=== PATIENT | male | born 1950 | race Caucasian/White ===

== ENCOUNTER 2019-05-24 12:17 | Emergency (ER) | payer MEDICARE, SELFPAY ==
--- NOTE | ~2019-05-24 | CT_ITS ---
EXAMINATION: CT cervical spine wo con DATE: 05/24/2019 13:10 INDICATION: Neck pain. No acute injury. TECHNIQUE: Computed tomography (CT) of the cervical spine was performed without intravenous contrast. The dose-length product was 430 mGy-cm. Automated exposure control and iterative reconstruction tech nique were employed. COMPARISON: None FINDINGS: There is degenerative anterolisthesis at C3-4 secondary to facet hypertrophy. There is disc narrowing at C5-6, C6-7 and C7-T1. There is endplate degenerative change at C6-7. Odontoid process w ithin normal limits. There is mild-moderate multilevel uncinate and facet hypertrophy. Lung apices ar e unremarkable. There is atherosclerosis of the carotid arteries. No acute fracture or traumatic segundo lignment. IMPRESSION: 1. No acute abnormality of the cervical spine. 2: Moderate-severe cervical spondylosis. Reviewed, dictated and finalized at location A. GATHERER
--- NOTE | ~2019-05-24 | XR_ITS ---
XR shoulder LT min 2V 05/24/2019 13:10 Indication: Left-sided shoulder and neck pain no acute injury. Procedure: 5 views of the left shoulder Comparison: No prior studies for comparison. Findings: There are degenerative changes of the left acromioclavicular and glenohumeral joints. No fr acture or traumatic malalignment. Surrounding osseous structures and soft tissues are unremarkable. Impression: 1: Mild polyarticular osteoarthritis. Reviewed, dictated and finalized at location A. CTOR CHEMISTRY Impression: 1: Mild polyarticular osteoarthritis.
[2019-05-24 12:34] VITALS: BP 201/94; PULSE 77; RESP 16; TEMP 36.8; O2SAT 98
--- NOTE | 2019-05-24 12:54 | ED.UPPEXIN ---
HPI - Extremity Injury (Upper) General Chief Complaint: Extremity Injury, Upper Stated Complaint: left arm/shoulder pain Time Seen by Provider: 05/24/19 12:42 Source: patient Mode of arrival: ambulatory Limitations: no limitations History of Present Illness HPI narrative: Calos is a very pleasant 68-year-old male patient. He presents ambulatory to the emergency room. He states that he has had pain to the back of the neck radiating to the left side of the neck left shoulder down to the elbow. This is been going on for the past 4 days. Any lateral motion of the neck reproduces the pain. [id number] movement of the neck on both the left and right side cause the pain. He has occasional numbness to the fingers on the left hand. There is no motor weakness. There is no history of injury. He describes the pain is sharp. Any motion increases it to 10. Head rest when he keeps his neck still the pain is 4 or 5. Calos has history of heart disease. He has had 5 vessel CABG. He has had a total of 16 stents in the heart. He has history of hypertension. He takes aspirin 325 and Plavix. MD complaint: injury to: left ( Pain to the left side of the neck radiating to the left shoulder and left elbow. Please see HPI narrative.) and shoulder Onset (ago): day(s) ( Four days) Other injuries: none Handedness: right Severity: severe ( please see HPI narrative) Relieving factors: other ( when he keeps his neck still, Calos does not have much pain. Lateral motions of the neck is painful.) Exacerbating factors: other ( neck movements make the pain worse) Context: other ( no injury) Associated symptoms: numbness Treatments prior to arrival: other ( none) Related Data Home Medications Medication Instructions Recorded Confirmed clopidogrel 75 mg PO DAILY 05/24/19 05/24/19 dicyclomine 10 mg PO BID PRN 05/24/19 05/24/19 ezetimibe 10 mg PO DAILY 05/24/19 05/24/19 gabapentin 300 mg PO DAILY 05/24/19 05/24/19 isosorbide mononitrate 30 mg PO DAILY 05/24/19 05/24/19 losartan 25 mg PO DAILY 05/24/19 05/24/19 pramipexole 0.25 mg PO DAILY 05/24/19 05/24/19 rosuvastatin 40 mg PO DAILY 05/24/19 05/24/19 Allergies Allergy/AdvReac Type Severity Reaction Status Date / Time No Known Allergies Allergy Unverified 05/26/15 07:24 Review of Systems Review of Systems: All systems reviewed & are unremarkable except as noted in HPI and below Constitutional: Constitutional: Reports as per HPI, Reports no additional constitutional complaints, Denies chills and Denies fever(s) Eyes: Eyes: Reports as per HPI, Reports no additional eye complaints and Denies change in vision ENT: Reports system reviewed and no additional complaints, except as documented, Denies dysphagia, Denies vertigo, Denies dizziness, Denies epistaxis, Denies nasal congestion and Denies sore throat Cardiovascular: Cardiovascular: Reports as per HPI, Reports no additional cardiovascular complaints, Denies chest pain, Denies rapid heart rate, Denies radiating jaw, neck or arm pain and Denies slow heart rate Respiratory: Respiratory: Reports as per HPI, Reports no additional respiratory complaints, Denies chest congestion, Denies cough, Denies dyspnea and Denies wheezing Gastrointestinal: Gastrointestinal: Reports as per HPI, Reports no additional gastrointestinal complaints, Denies abdominal pain, Denies nausea and Denies vomiting Genitourinary: Genitourinary: Reports no additional male genitourinary complaints, Denies hematuria and Denies dysuria Musculoskeletal: Musculoskeletal: Reports no additional musculoskeletal complaints Comments: neck pain as described in HPI narrative Integumentary/Breasts: Skin/Breast: Reports system reviewed and no additional complaints, except as docu, Reports as per HPI, Denies erythema and Denies rash Neurologic: Reports system reviewed and no additional complaints, except as documented, Denies vertigo, Denies dizziness, Denies syncope, Denies headache(s), Denies focal weak
[2019-05-24] MEDS: KETOROLAC (*BKC) 60 MG/2 ML VIAL 30 MG IM (14:01)
[2019-05-24 14:09] VITALS: BP 197/99
== END 2019-05-24 14:12 | disposition home or self-care (01) ==
PROVIDERS: Emergency Provider Surgery; PCP Internal Medicine
DX: M47.892 Other spondylosis, cervical region (principal); M13.812 Other specified arthritis, left shoulder; I25.10 Atherosclerotic heart disease of native coronary artery without angina pectoris; E78.00 Pure hypercholesterolemia, unspecified; I10 Essential (primary) hypertension; Z87.891 Personal history of nicotine dependence
CPT/HCPCS: 72125; 73030; 96372; 99283; 99284; J1885

== ENCOUNTER 2019-05-27 10:11 | Emergency (ER) | payer MEDICARE, SELFPAY ==
--- NOTE | ~2019-05-27 | XR_ITS ---
XR chest 2V DATE: 05/27/2019 11:13 INDICATION: Cough, shortness of breath, left-sided chest pain. Left shoulder pain. TECHNIQUE: PA and lateral views COMPARISON: 09/17/2010 portable AP chest FINDINGS: Status post sternotomy and coronary artery bypass graft surgery. Coronary artery calcificat ion and/or stent is suggested. Normal heart size. No hilar or mediastinal enlargement. No pulmonary infiltrate or consolidation, pleural effusion or pulmonary vascular congestion or pneumo thorax. Degenerative spurring of the thoracic and lumbar spine. Mild likely chronic anterior wedging of T12 a nd L1. IMPRESSION: Postoperative changes No active cardiopulmonary disease Reviewed, dictated and finalized at location A.
--- NOTE | ~2019-05-27 | XR_ITS ---
XR chest 1V portable 06/11/2019 15:35 Indication: Lethargy, weakness and confusion Procedure: AP portable chest Comparison: 05/27/2019 Findings: Status post median sternotomy for CABG. Heart size normal. No focal air space disease, pulm onary edema, pleural effusion or suspected pneumothorax. Impression: 1: No acute cardiopulmonary disease. Reviewed, dictated and finalized at location A.
--- NOTE | ~2019-05-27 | CT_ITS ---
EXAMINATION: CT brain wo con INDICATION: Lethargy, weakness, confusion COMPARISON: None TECHNIQUE: Standard unenhanced head CT. The dose-length product (DLP) was 605.33 mGy-cm. The mA was a djusted according to patient size. Iterative reconstruction technique was employed. FINDINGS: There is no acute intraparenchymal hemorrhage. No evidence of mass lesion. No evidence of a cute infarction. There is mild periventricular and subcortical hypodensity probably related to small vessel ischemic disease. There is mild prominence of the sulci and ventricles related to cerebral atr ophy. Intracranial calcified cerebral atherosclerosis is noted. There are no extra-axial collections. There is no mass effect or midline shift. The orbits and soft tissues are unremarkable. The visuali zed sinuses and mastoid air cells are well aerated. IMPRESSION: 1. No acute intracranial abnormality. 2. Age related findings. Reviewed, dictated and finalized at location B.
[2019-05-27 10:25] VITALS: BP 216/100; PULSE 71; RESP 18; TEMP 36.5; O2SAT 98
[2019-05-27 10:31] VITALS: BP 182/83; PULSE 64; O2SAT 96
--- NOTE | 2019-05-27 10:51 | ED.NECK ---
HPI - Neck Pain/Injury General Chief Complaint: Neck Pain/Injury Stated Complaint: Pain all the way down L side/ Has heart Problems Time Seen by Provider: 05/27/19 10:52 Source: patient Mode of arrival: ambulatory Limitations: no limitations Related Data Home Medications Medication Instructions Recorded Confirmed clopidogrel 75 mg PO DAILY 05/24/19 05/27/19 dicyclomine 10 mg PO BID PRN 05/24/19 05/27/19 ezetimibe 10 mg PO DAILY 05/24/19 05/27/19 gabapentin 300 mg PO DAILY 05/24/19 05/27/19 isosorbide mononitrate 30 mg PO DAILY 05/24/19 05/27/19 losartan 25 mg PO DAILY 05/24/19 05/27/19 pramipexole 0.25 mg PO DAILY 05/24/19 05/27/19 rosuvastatin 40 mg PO DAILY 05/24/19 05/27/19 Allergies Allergy/AdvReac Type Severity Reaction Status Date / Time No Known Allergies Allergy Unverified 05/26/15 07:24 [facility] Past Medical History Medical History (Updated 05/27/19 @ 11:52 by Jayson Saab MD) CAD (coronary artery disease) Heart disease Hypercholesterolemia Hypertension Surgical History Surgical History (Updated 05/24/19 @ 13:02 by Arvin Carl MD) History of coronary artery stent placement S/P CABG x 5 Family History Family History (Updated 05/24/19 @ 13:03 by Arvin Carl MD) Mother , mother of old age at age 89 No problems noted. Father , father of old age at age 92 No problems noted. Social History Social History (Updated 05/24/19 @ 13:03 by Arvin Carl MD) Smoking status: Former smoker Additional smoking assessment comments: does not smoke cigarettes Substance use: never Course Vital Signs Vital signs: Vital Signs Temperature 36.5 C 05/27/19 10:25 Pulse Rate 71 05/27/19 10:25 Respiratory Rate 18 05/27/19 10:25 Blood Pressure 216/100 H 05/27/19 10:25 Pulse Oximetry 98 05/27/19 10:25 Temperature 36.5 C 05/27/19 10:25 Pulse Rate 64 05/27/19 10:31 Respiratory Rate 18 05/27/19 10:25 Blood Pressure 182/83 H 05/27/19 10:31 Pulse Oximetry 96 05/27/19 10:31 MDM - Neck Pain/Injury ECG Data EKG #1: Attestation: I personally reviewed and interpreted this ECG as follows: ECG completion date: 05/27/19 ECG completion time: 11:18 Prior ECG tracings: not available for review Interpretation: IVCD, Old inf [facility] EKG Interpretation: normal rate, sinus rhythm, non-specific ST changes, widened QRS, normal QT and NL axis Discharge Plan Discharge Clinical Impression: Cervical radiculopathy Patient Disposition: Home, Self-Care Condition: Stable Instructions: Cervical Radiculopathy (ED) Additional Instructions: Follow up with your doctor as scheduled. Prescriptions: New hydrocodone-acetaminophen [[place]] 5-325 mg tablet 1 tablet PO Q6H PRN (Reason: pain) Qty: 20 RF: 0 No Action isosorbide mononitrate 30 mg tablet extended release 24 hr 30 mg PO DAILY RF: 0 clopidogrel 75 mg tablet 75 mg PO DAILY RF: 0 losartan 25 mg tablet 25 mg PO DAILY RF: 0 pramipexole 0.25 mg tablet 0.25 mg PO DAILY RF: 0 gabapentin 300 mg capsule 300 mg PO DAILY RF: 0 dicyclomine 10 mg capsule 10 mg PO BID PRN (Reason: Nausea) RF: 0 ezetimibe 10 mg tablet 10 mg PO DAILY RF: 0 rosuvastatin 40 mg tablet 40 mg PO DAILY RF: 0 acetaminophen-codeine [Tylenol-Codeine #3] 300-30 mg tablet 1 tablet PO Q6H PRN (Reason: pain) Qty: 6 RF: 0 Follow-up/Referrals: Mario Valerio MD [Primary Care Provider] - Time of Disposition: 11:54
--- NOTE | 2019-05-27 10:58 | ECG_ITS ---
Measurements Intervals [place] Rate: 62 P: 66 CT: 206 QRS: 37 QRSD: 118 T: 99 QT: 408 QTc: 416 Interpretive Statements SINUS RHYTHM WITH FIRST DEGREE AV BLOCK INTRAVENTRICULAR CONDUCTION DELAY INFERIOR INFARCT, AGE INDETERMINATE BORDERLINE T WAVE ABNORMALITY- LATERAL LEADS ABNORMAL ECG Electronically Signed On 05-27-2019 11:22:15 CDT by Kaushik Lopez D.O.
[2019-05-27 11:00] VITALS: BP 152/51; PULSE 60; RESP 18; O2SAT 97
[2019-05-27] MEDS: ASPIRIN 81 MG CHEWABLE TABLET 324 MG PO (11:22)
[2019-05-27 11:23] LABS: Basophils Absolute Auto 0.03 K/mm3 (0.00-0.10); Basophils Percent Auto 0.5 % (0.0-1.0); Eosinophils Absolute Auto 0.28 K/mm3 (0.02-0.50); Eosinophils Percent Auto 4.8 % (1.0-6.0); Hematocrit 43.5 % (37.0-46.0); Hemoglobin 14.4 g/dL (12.4-15.3); Immature Granulocyte Absolute 0.02 K/mm3 (0.00-0.00); Immature Granulocyte Percent A 0.3 % (0.0-0.0); Lymphocytes Absolute Auto 1.36 K/mm3 (1.10-4.50); Lymphocytes Percent Auto 23.1 % (18.0-42.0); Mean Corpuscular HGB Conc 33.1 g/dL (32.0-36.0); Mean Corpuscular Hemoglobin 28.1 pg (27.0-31.0); Mean Corpuscular Volume 84.8 fL (78.0-102.0); Mean Platelet Volume 9.5 fl (8.7-11.0); Monocytes Absolute Auto 0.45 K/mm3 (0.10-0.90); Monocytes Percent Auto 7.7 % (2.0-11.0); Neutrophils Absolute Auto 3.7 K/mm3 (1.7-7.2); Neutrophils Percent Auto 63.6 % (50.0-70.0); Platelet Count Result 207 K/mm3 (150-420); Red Blood Count 5.13 M/mm3 (4.70-6.10); Red Cell Distribution Width 13.6 % (11.6-14.4); White Blood Count 5.9 K/mm3 (4.8-10.8)
[2019-05-27 11:44] LABS: Alanine Aminotransferase 24 U/L (16-63); Albumin Level 3.7 g/dL (3.4-5.0); Alkaline Phosphatase 51 U/L (46-116); Anion Gap 12.1 mmol/L (7-16); Aspartate Amino Transferase 17 U/L (15-37); Bilirubin,Total 0.4 mg/dL (0.00-1.00); Blood Urea Nitrogen 11 mg/dL (7-18); Carbon Dioxide 26 mmol/L (21-32); Chloride 106 mmol/L (98-108); Estimated CRCL calculation 72 ml/min; Estimated Glomerular Filt Rate > 60; Glucose 117 mg/dL (70-99); Osmolality Calculated 290 mOsm/kg (285-295); Potassium 4.1 mmol/L (3.5-5.1); Sodium 140 mmol/L (136-145); Total Protein 6.9 g/dL (6.4-8.2)
[2019-05-27 11:45] LABS: Troponin I < 0.02 ng/mL (0.00-0.056)
[2019-05-27 12:01] VITALS: BP 174/88; PULSE 56; RESP 18; O2SAT 97
--- NOTE | 2019-06-11 14:39 | ECG_ITS ---
Measurements Intervals [place] Rate: 76 P: 36 [place]: 198 QRS: 5 QRSD: 118 T: -19 QT: 377 QTc: 425 Interpretive Statements SINUS RHYTHM BORDERLINE AV CONDUCTION DELAY INTRAVENTRICULAR CONDUCTION DELAY VOLTAGE CRITERIA FOR LVH INFERIOR INFARCT, AGE INDETERMINATE ABNORMAL ECG Electronically Signed On 06-11-2019 15:28:37 CDT by Kaushik Lopez D.O.
--- NOTE | 2019-06-11 14:51 | ED.WEAKNESS ---
HPI - Weakness General Source: patient Mode of arrival: ambulatory Limitations: no limitations Related Data Home Medications Medication Instructions Recorded Confirmed clopidogrel 75 mg PO DAILY 05/24/19 05/28/19 dicyclomine 10 mg PO BID PRN 05/24/19 05/28/19 ezetimibe 10 mg PO DAILY 05/24/19 05/28/19 gabapentin 300 mg PO DAILY 05/24/19 05/28/19 isosorbide mononitrate 30 mg PO DAILY 05/24/19 05/28/19 losartan 25 mg PO DAILY 05/24/19 05/28/19 pramipexole 0.25 mg PO DAILY 05/24/19 05/28/19 rosuvastatin 40 mg PO DAILY 05/24/19 05/28/19 aspirin 325 mg tablet 325 mg PO DAILY 05/28/19 06/11/19 Allergies Allergy/AdvReac Type Severity Reaction Status Date / Time No Known Allergies Allergy Verified 05/28/19 09:42 [facility] Social History Social History Smoking status: Former smoker Additional smoking assessment comments: does not smoke cigarettes Substance use: never Course Vital Signs Vital signs: Vital Signs Temperature 36.5 C 05/27/19 10:25 Pulse Rate 71 05/27/19 10:25 Respiratory Rate 18 05/27/19 10:25 Blood Pressure 216/100 H 05/27/19 10:25 Pulse Oximetry 98 05/27/19 10:25 Temperature 36.5 C 05/27/19 10:25 Pulse Rate 56 L 05/27/19 12:01 Respiratory Rate 18 05/27/19 12:01 Blood Pressure 174/88 H 05/27/19 12:01 Pulse Oximetry 97 05/27/19 12:01 MDM - Weakness Lab Data Result diagrams: 05/27/19 11:13 05/27/19 11:13 Labs: Lab Results 05/27/19 05/27/19 05/27/19 Range/Units 11:13 11:13 11:13 WBC 5.9 (4.8-10.8) K/mm3 RBC 5.13 (4.70-6.10) M/mm3 Hgb 14.4 (12.4-15.3) g/dL Hct 43.5 (37.0-46.0) % MCV 84.8 (78.0-102.0) fL MCH 28.1 (27.0-31.0) pg MCHC 33.1 (32.0-36.0) g/dL RDW 13.6 (11.6-14.4) % Plt Count 207 (150-420) K/mm3 MPV 9.5 (8.7-11.0) fl Immature Gran % (Auto) 0.3 H (0.0-0.0) % Neut % (Auto) 63.6 (50.0-70.0) % Lymph % (Auto) 23.1 (18.0-42.0) % [place] % (Auto) 7.7 (2.0-11.0) % Eos % (Auto) 4.8 (1.0-6.0) % Baso % (Auto) 0.5 (0.0-1.0) % Lymph # (Auto) 1.36 (1.10-4.50) K/mm3 [place] # (Auto) 0.45 (0.10-0.90) K/mm3 Eos # (Auto) 0.28 (0.02-0.50) K/mm3 Baso # (Auto) 0.03 (0.00-0.10) K/mm3 Abs Immat Gran (auto) 0.02 H (0.00-0.00) K/mm3 Absolute Neuts (auto) 3.7 (1.7-7.2) K/mm3 Absolute Nucleated RBC 0.00 (0.00-0.00) K/mm3 Nucleated RBC % 0.0 (0-0.0) % Sodium 140 (136-145) mmol/L Potassium 4.1 (3.5-5.1) mmol/L Chloride 106 (98-108) mmol/L Carbon Dioxide 26 (21-32) mmol/L Anion Gap 12.1 (7-16) mmol/L BUN 11 (7-18) mg/dL Creatinine 0.93 (0.70-1.30) mg/dL Estim Creat Clear Calc 72 ml/min Estimated GFR > 60 (59 - ) Glucose 117 H (70-99) mg/dL Calculated Osmolality 290 (285-295) mOsm/kg Calcium 9.0 (8.5-10.1) mg/dL Total Bilirubin 0.4 (0.00-1.00) mg/dL AST 17 (15-37) U/L ALT 24 (16-63) U/L Alkaline Phosphatase 51 (46-116) U/L Troponin I < 0.02 (0.00-0.056) ng/mL Total Protein 6.9 (6.4-8.2) g/dL Albumin 3.7 (3.4-5.0) g/dL Discharge Plan Discharge Clinical Impression: Cervical radiculopathy Patient Disposition: Home, Self-Care Condition: Stable Instructions: Cervical Radiculopathy (ED) Additional Instructions: Follow up with your doctor as scheduled. Prescriptions: New hydrocodone-acetaminophen [[place]] 5-325 mg tablet 1 tablet PO Q6H PRN (Reason: pain) Qty: 20 RF: 0 No Action isosorbide mononitrate 30 mg tablet extended release 24 hr 30 mg PO DAILY RF: 0 clopidogrel 75 mg tablet 75 mg PO DAILY RF: 0 losartan 25 mg tablet 25 mg PO DAILY RF: 0 pramipexole 0.25 mg tablet 0.25 mg PO DAILY RF: 0 gabapentin 300 mg capsule 300 mg PO DAILY RF: 0 dicyclomine 10 mg capsule 10 mg PO BID PRN (Reason: Nausea) RF: 0 ezetimibe 1
== END 2019-05-27 12:03 | disposition home or self-care (01) ==
PROVIDERS: Emergency Provider Emergency Medicine; PCP Family Medicine
DX: M54.12 Radiculopathy, cervical region (principal); I25.10 Atherosclerotic heart disease of native coronary artery without angina pectoris; E78.00 Pure hypercholesterolemia, unspecified; I10 Essential (primary) hypertension; Z87.891 Personal history of nicotine dependence
CPT/HCPCS: 36415; 70450; 71045; 71046; 80053; 84484; 85025; 93005; 99283; 99284; A9270

== ENCOUNTER 2019-06-11 14:28 | Emergency (ER) | payer MEDICARE, SELFPAY ==
--- NOTE | ~2019-06-11 | CT_ITS ---
EXAMINATION: CT brain wo con INDICATION: Lethargy, weakness, confusion COMPARISON: None TECHNIQUE: Standard unenhanced head CT. The dose-length product (DLP) was 605.33 mGy-cm. The mA was a djusted according to patient size. Iterative reconstruction technique was employed. FINDINGS: There is no acute intraparenchymal hemorrhage. No evidence of mass lesion. No evidence of a cute infarction. There is mild periventricular and subcortical hypodensity probably related to small vessel ischemic disease. There is mild prominence of the sulci and ventricles related to cerebral atr ophy. Intracranial calcified cerebral atherosclerosis is noted. There are no extra-axial collections. There is no mass effect or midline shift. The orbits and soft tissues are unremarkable. The visuali zed sinuses and mastoid air cells are well aerated. IMPRESSION: 1. No acute intracranial abnormality. 2. Age related findings. Reviewed, dictated and finalized at location B.
--- NOTE | ~2019-06-11 | XR_ITS ---
XR chest 1V portable 06/11/2019 15:35 Indication: Lethargy, weakness and confusion Procedure: AP portable chest Comparison: 05/27/2019 Findings: Status post median sternotomy for CABG. Heart size normal. No focal air space disease, pulm onary edema, pleural effusion or suspected pneumothorax. Impression: 1: No acute cardiopulmonary disease. Reviewed, dictated and finalized at location A. Impression: 1: No acute cardiopulmonary disease.
--- NOTE | 2019-06-11 14:44 | ECG_ITS ---
Measurements Intervals [place] Rate: 76 P: 36 [place]: 198 QRS: 5 QRSD: 118 T: -19 QT: 377 QTc: 425 Interpretive Statements SINUS RHYTHM BORDERLINE AV CONDUCTION DELAY INTRAVENTRICULAR CONDUCTION DELAY VOLTAGE CRITERIA FOR LVH INFERIOR INFARCT, AGE INDETERMINATE ABNORMAL ECG Electronically Signed On 06-11-2019 15:28:37 CDT by Kaushik MASON
[2019-06-11 14:55] VITALS: BP 179/99; PULSE 87; RESP 18; TEMP 37.1; O2SAT 98
--- NOTE | 2019-06-11 15:17 | ED.WEAKNESS ---
HPI - Weakness General Source: patient and family Mode of arrival: ambulatory Limitations: no limitations History of Present Illness HPI Narrative: 68-year-old man brought to the emergency department today for weakness that started overnight. He states that he got up at 3:00 a.m. and found himself too weak to go to the restroom. Patient states that he then fell asleep and slept well approximately noon. He states that he woke up and was unable to stand and felt weak all over. He states that he kind of slumped on the side of his bed but does not think he had any injury. He states he had the onset of nasal congestion and cough today. He states that he has had no shortness of breath, chest pain, numbness, tingling, headache, nausea, vomiting, diarrhea, dysuria or rash. He states that it feels like his left side is a bit stronger than his right. He states that he noticed that the end of his fingers appear to be white and that the white appearance went away after EMS david blood from his finger and has not returned. He states that approximately 5 days ago he his PCP started him on new medications (cyclobenzaprine and exenatide). MD Complaint: generalized weakness and difficulty walking Onset (ago): hour(s) (12) Duration: constant Location: generalized Migration: none Severity: moderate Relieving factors: none Exacerbating factors: none Context: new medication Related Data Home Medications Medication Instructions Recorded Confirmed clopidogrel 75 mg PO DAILY 05/24/19 06/11/19 dicyclomine 10 mg PO BID PRN 05/24/19 06/11/19 ezetimibe 10 mg PO DAILY 05/24/19 06/11/19 gabapentin 300 mg PO DAILY 05/24/19 06/11/19 isosorbide mononitrate 30 mg PO DAILY 05/24/19 06/11/19 losartan 25 mg PO DAILY 05/24/19 06/11/19 pramipexole 0.25 mg PO DAILY 05/24/19 06/11/19 rosuvastatin 40 mg PO DAILY 05/24/19 06/11/19 aspirin 325 mg tablet 325 mg PO DAILY 05/28/19 06/11/19 Allergies Allergy/AdvReac Type Severity Reaction Status Date / Time No Known Allergies Allergy Verified 05/28/19 09:42 Review of Systems Constitutional: Constitutional: Denies chills, Denies fever(s), Denies headache(s), Reports lethargy, Denies night sweats and Denies poor appetite Eyes: Eyes: Denies blind spots, Reports blurry vision, Denies diplopia and Denies photophobia ENT: Denies otalgia, Denies facial pain, Reports nasal congestion, Denies sinus pressure and Denies sore throat Cardiovascular: Cardiovascular: Denies chest pain, Denies chest pain at rest, Denies chest pain with activity, Denies diaphoresis, Denies rapid heart rate, Denies leg edema, Denies lightheadedness, Denies dyspnea, Denies dyspnea on exertion and Denies slow heart rate Respiratory: Respiratory: Denies chest congestion, Reports cough, Denies excessive phlegm production, Denies pain with cough, Denies dyspnea, Denies dyspnea on exertion and Denies wheezing Gastrointestinal: Gastrointestinal: Denies abdominal pain, Denies hematochezia, Denies dysphagia, Denies diarrhea, Denies nausea and Denies vomiting Genitourinary: Genitourinary: Denies urinary frequency, Denies urinary incontinence and Denies urinary urgency Musculoskeletal: Musculoskeletal: Reports back pain (chronic) and Reports neck pain (for weeks) Integumentary/Breasts: Skin/Breast: Denies pruritus, Denies lesions, Denies erythema and Denies rash Neurologic: Reports as per HPI, Denies Neuro-related abnormal movements, Denies Abnormal speech present, Denies vertigo, Denies dizziness, Denies syncope, Denies tingling, Denies paresthesias and Reports weakness Psychiatric: Psychiatric: Denies anxiety and Denies depression Endocrine: Endocrine: Denies excessive sweating, Denies heat intolerance and Denies polydipsia Hematologic/Lymphatic: Hematologic/Lymphatic: Denies easy bleeding and Denies easy bruising Allergic/Immunologic: Allergic/Immunologic: Denies urticaria, Denies lip swelling and Denies wheezing PMFSH Past Medical History Medical
[2019-06-11 15:31] LABS: Basophils Absolute Auto 0.01 K/mm3 (0.00-0.10); Basophils Percent Auto 0.2 % (0.0-1.0); Eosinophils Absolute Auto 0.24 K/mm3 (0.02-0.50); Eosinophils Percent Auto 5.3 % (1.0-6.0); Hematocrit 45.8 % (37.0-46.0); Immature Granulocyte Absolute 0.03 K/mm3 (0.00-0.00); Immature Granulocyte Percent A 0.7 % (0.0-0.0); Lymphocytes Absolute Auto 0.66 K/mm3 (1.10-4.50); Lymphocytes Percent Auto 14.6 % (18.0-42.0); Mean Corpuscular HGB Conc 32.8 g/dL (32.0-36.0); Mean Corpuscular Hemoglobin 28.1 pg (27.0-31.0); Mean Corpuscular Volume 85.9 fL (78.0-102.0); Mean Platelet Volume 9.2 fl (8.7-11.0); Monocytes Absolute Auto 0.63 K/mm3 (0.10-0.90); Monocytes Percent Auto 13.9 % (2.0-11.0); Neutrophils Percent Auto 65.3 % (50.0-70.0); Platelet Count Result 199 K/mm3 (150-420); Red Blood Count 5.33 M/mm3 (4.70-6.10); Red Cell Distribution Width 14.1 % (11.6-14.4); White Blood Count 4.5 K/mm3 (4.8-10.8)
[2019-06-11 15:32] LABS: INR 1.1; Partial Thromboplastin Time 26.7 SEC (22.3-31.6)
[2019-06-11 15:37] LABS: Amphetamine Screen Urine Negative (Negative); Barbiturate Screen Urine Negative (Negative); Benzodiazepines Screen Urine Negative (Negative); Cannabinoid Screen Urine Negative (Negative); Cocaine Screen Urine Negative (Negative); Methadone Screen Urine Negative (Negative); Opiate Screen Urine Negative (Negative); Phencyclidine Screen Urine Negative (Negative)
--- NOTE | 2019-06-11 15:41 | PC.NURSE ---
PT. RESTING ON STREACHER. APPEARS COMFORTABLE. MONITOR SHOWS NSR. NO CHANGES. ALERT AND ORIENTATED TIMES 3. AT BEDSIDE.
[2019-06-11 15:46] LABS: Add Urine Microscopic? YES; Appearance Urine Clear (Clear); Bilirubin Urine Negative (Negative); Blood Urine 2+ (Negative); Color Urine Yellow (Yellow); Glucose Urine UA Negative (Negative); Ketones Urine Negative (Negative); Leukocyte Esterase Ur Negative (Negative); Nitrate Urine Negative (Negative); Protein Urine Negative (Negative); Specific Grav Ur 1.025 (1.010-1.020); Urobilinogen Urine 0.2 mg/dL (0.2-1.0)
[2019-06-11 15:47] LABS: Bacteria Urine Trace /hpf; RBC Urine 21-50 /hpf (0-2); WBC Urine 0-3 /hpf (0-3)
[2019-06-11 15:54] LABS: Alanine Aminotransferase 25 U/L (16-63); Albumin Level 3.7 g/dL (3.4-5.0); Alkaline Phosphatase 59 U/L (46-116); Anion Gap 13.6 mmol/L (7-16); Aspartate Amino Transferase 20 U/L (15-37); Bilirubin,Total 0.5 mg/dL (0.00-1.00); Blood Urea Nitrogen 9 mg/dL (7-18); CRP 0.6 mg/dL (0.0-0.9); Calcium 9.1 mg/dL (8.5-10.1); Carbon Dioxide 26 mmol/L (21-32); Chloride 105 mmol/L (98-108); Estimated CRCL calculation 70 ml/min; Estimated Glomerular Filt Rate > 60; Glucose 111 mg/dL (70-99); Osmolality Calculated 291 mOsm/kg (285-295); Potassium 3.6 mmol/L (3.5-5.1); Salicylate 0.3 mg/dL (2.8-20.0); Sodium 141 mmol/L (136-145); Total Protein 7.3 g/dL (6.4-8.2)
[2019-06-11 15:55] LABS: Acetaminophen 0 ug/mL (10-30); Troponin I 0.09 ng/mL (0.00-0.056)
[2019-06-11 15:56] LABS: Ethanol < 3 mg/dL (0-6)
[2019-06-11 16:19] LABS: Creatine Kinase 48 U/L (39-308)
[2019-06-11 16:31] LABS: D Dimer 0.55 mg/L (0.19-0.50)
--- NOTE | 2019-06-11 16:38 | PC.NURSE ---
DR. LEE CALL [facility] EXCESS LINE . NO CHANGES
--- NOTE | 2019-06-11 16:44 | PC.NURSE ---
DR. LEE SPEAKS WITH DR. ULRICH @ [place]. NO CHANGES IN PT. RESTING ON STREACHER. APPEARS COMFORTABLE.
[2019-06-11 17:00] VITALS: PULSE 75
[2019-06-11] MEDS: LOSARTAN POTASSIUM 25 MG TABLET (17:19)
--- NOTE | 2019-06-11 17:25 | PC.NURSE ---
1700 Report received, pt. resting and new orders from ERP received. Awaiting call back from [facility] for bed assignment and report for pt. transfer. at bedside, VSS. Pt. and report all Drs. and cardiology located at [facility]. Informed on wait for callback for rm assignment.
[2019-06-11 17:27] VITALS: BP 176/96; PULSE 75; RESP 20; O2SAT 95
[2019-06-11 17:39] LABS: Influenza Control Valid (Valid)
[2019-06-11 17:49] VITALS: BP 183/84; PULSE 77; RESP 20; TEMP 37.1; O2SAT 96
--- NOTE | 2019-06-11 17:56 | PC.NURSE ---
Call placed to [facility] for pt. transfer, no crew available via [facility] for transfer. Pt. stable, VSS. Mon. continues to show NSR. Pt. has no c/o.
== END 2019-06-11 18:08 | disposition short-term general hospital (02) ==
PROVIDERS: Emergency Provider Emergency Medicine; PCP Family Medicine
DX: R53.1 Weakness (principal); R79.9 Abnormal finding of blood chemistry, unspecified; I25.10 Atherosclerotic heart disease of native coronary artery without angina pectoris; E78.00 Pure hypercholesterolemia, unspecified; E78.5 Hyperlipidemia, unspecified; I10 Essential (primary) hypertension; E11.9 Type 2 diabetes mellitus without complications; Z95.1 Presence of aortocoronary bypass graft; Z87.891 Personal history of nicotine dependence; Z79.899 Other long term (current) drug therapy
CPT/HCPCS: 36415; 70450; 71045; 80053; 80307; 81001; 82550; 83605; 84484; 85025; 85380; 85610; 85730; 86140; 87040; 87086; 87088; 87804; 93005; 99285; A9270

== ENCOUNTER 2019-06-20 07:53 | Outpatient (RCR) | payer MEDICARE, SELFPAY ==
--- NOTE | 2019-06-20 10:07 | OTOPEVAL ---
Thank you for referring Calos Schmitz to [facility]. Please review, sign, date and return this plan of care STEVE. I agree with and certify that the following plan of care is medically necessary. Referring Physician Date Admitting Provider: Attending Provider: Mario Valerio MD Referring Provider: *OT Outpatient Evaluation Start: 06/20/19 08:50 Freq: Status: Active Protocol: Document 06/20/19 09:00 MBS (Rec: 06/20/19 10:07 [facility] [place] [id number] Therapy Assessment Status Assessment Status Assessment Status Evaluation Outpatient Past Medical History Cardiovascular History Hx Angina Yes Hx Cardiac Catheterization Yes Hx Chest Pain Yes Hx Congestive Heart Failure Yes Hx Coronary Artery Bypass Graft Yes Hx Coronary Artery Disease Yes Hx Coronary Stent Yes Hx Hypercholesterolemia Yes Hx Hypertension Yes Musculoskeletal History Hx Arthritis Yes Endocrine History Hx Diabetes Yes Evaluation Information Problem Diagnosis weakness Onset 06/17/19 Subjective Information Pt. reports that he developed Query Text:As Reported By Patient/ left leg pain about 3 months Family ago. He reports he attempted to push through the discomfort . He states that he began to decline and was recently hospitalized. He reports that his legs had become weak and he fell at home. He reports that he could not get himself off the floor. He reports that he was disoriented and hallucinating. He was taken to the hospital by ambulance and was hospitalized for 4 days with weakness and confusion. He reports that he notes difficulty with basic daily activities and states that his goal is to improve his strength. He reports that walking around outside to feed the animals is difficult with the walker and getting back on his feet is his primary goal. Prior Level of Function Activity Level (Last 3 Months) Hand Dominance Right Activity of Daily Living Ability Independent Indo
--- NOTE | 2019-06-23 09:13 | PTOPEVAL ---
Thank you for referring Calos Schmitz to [facility]. Please review, sign, date and return this plan of care STEVE. I agree with and certify that the following plan of care is medically necessary. Referring Physician Date Admitting Provider: Attending Provider: Mario Valerio MD Referring Provider: *PT Outpatient Evaluation Start: 06/20/19 08:07 Freq: Status: Active Protocol: Document 06/20/19 08:08 JAIR (Rec: 06/20/19 08:47 [email or web address] [id number]) Therapy Assessment Status Assessment Status Assessment Status Evaluation Outpatient Past Medical History Cardiovascular History Hx Angina Yes Hx Cardiac Catheterization Yes Hx Chest Pain Yes Hx Congestive Heart Failure Yes Hx Coronary Artery Bypass Graft Yes Hx Coronary Artery Disease Yes Hx Coronary Stent Yes Hx Hypercholesterolemia Yes Hx Hypertension Yes Musculoskeletal History Hx Arthritis Yes Endocrine History Hx Diabetes Yes Evaluation Information Problem Diagnosis weakness Onset 06/17/19 Subjective Information Pt. reports that he developed Query Text:As Reported By Patient/ left leg pain about 3 months Family ago. He reports he attempted to push through the discomfort . He states that he began to decline and was recently hospitalized. He reports that his legs had become weak and he fell at home. He reports that he could not get himself off the floor. He was taken to the hospital by ambulance and was hospitalized for 4 days with weakness and confusion. He reports that he notes difficulty with basic daily activities and states that his goal is to improve his strength. 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
--- NOTE | 2019-07-17 15:00 | PTOPEVAL ---
Thank you for referring Calos Schmitz to [facility]. Please review, sign, date and return this plan of care STEVE. I agree with and certify that the following plan of care is medically necessary. Referring Physician Date Admitting Provider: Attending Provider: Mario Valerio MD Referring Provider: *PT Outpatient Evaluation Start: 06/20/19 08:07 Freq: Status: Active Protocol: Document 07/17/19 14:29 JAIR (Rec: 07/17/19 14:58 JAIR [id number]) Therapy Assessment Status Assessment Status Assessment Status Re-evaluation Outpatient Past Medical History Cardiovascular History Hx Angina Yes Hx Cardiac Catheterization Yes Hx Chest Pain Yes Hx Congestive Heart Failure Yes Hx Coronary Artery Bypass Graft Yes Hx Coronary Artery Disease Yes Hx Coronary Stent Yes Hx Hypercholesterolemia Yes Hx Hypertension Yes Musculoskeletal History Hx Arthritis Yes Endocrine History Hx Diabetes Yes Evaluation Information Problem Diagnosis weakness Subjective Information Pt. reports that he is doing Query Text:As Reported By Patient/ much better. He states that Family he has returned to short distance driving and is rarely using an AD. Pt. continues to express concern regarding endurance and states that standing for greater than 10 minutes is difficult. Pain Assessment Pain Scale Pain Scale Used Numeric (1 - 10) Self Report Pain Assessment Bilateral Leg(s) Reported Pain Level 3 Pain Score Pain Score 3: Self Report Lower Extremity Muscle Strength Testing General Lower Extremity Strength Gross Lower Extremity Strength bilateral hip flexion 4+/5, bilateral hip extension 4/5, bilateral knee extension 5/5, bilateral knee flexion 4+/5, right ankle dorsiflexion 4+/5, left ankle dorsiflexion 3+/5 Balance Assessment Tinetti Balance Assessment Sitting Balance Steady, safe Ability to Arise Able, uses arms to help Attempts to Arise Arises on 1st attempt Immediate Standing Balance Steady w/o support Standing Balance Narrow stance w/o support Nudged Response Steady Standing with Eyes Closed Steady Step Pattern Turning 360 Degrees Continuous steps Stability Turning 360 Degrees Steady Sitting Down Uses arms or
--- NOTE | 2019-08-14 08:08 | PTOPEVAL ---
Thank you for referring Calos Schmitz to [facility]. Please review, sign, date and return this plan of care STEVE. I agree with and certify that the following plan of care is medically necessary. Referring Physician Date Admitting Provider: Attending Provider: Mario Valerio MD Referring Provider: *PT Outpatient Evaluation Start: 06/20/19 08:07 Freq: Status: Active Protocol: Document 08/07/19 13:54 [id number] (Rec: 08/07/19 15:27 [email or web address] [id number]) Therapy Assessment Status Assessment Status Assessment Status Re-evaluation Outpatient Past Medical History Cardiovascular History Hx Angina Yes Hx Cardiac Catheterization Yes Hx Chest Pain Yes Hx Congestive Heart Failure Yes Hx Coronary Artery Bypass Graft Yes Hx Coronary Artery Disease Yes Hx Coronary Stent Yes Hx Hypercholesterolemia Yes Hx Hypertension Yes Musculoskeletal History Hx Arthritis Yes Endocrine History Hx Diabetes Yes Evaluation Information Problem Diagnosis weakness, neck pain Subjective Information Pt. reports that he was doing Query Text:As Reported By Patient/ well. He states he has Family increased neck pain today. He reports that he is walking better and states that he notes that the left foot is slapping less. He reports that he still notes l.e. weakness is still present but getting better. Pt. reports that cheyenne wants to continue to address strength with therapy because of fear of regression. He states that pain in is neck is very problematic currently. He reports that neck pain began after his fall prior to beginning therapy. He describes most pain with rotational movement. He reports that he had CT scan of his neck a couple months ago. He reports that pain is notable with turning his head and can wake him at night. he reports that he would like to continue treatment to reduce his neck pain. Pain Assessment Pain Scale Pain Scale Used
== END 2019-08-28 09:28 | disposition home or self-care (01) ==
LOC: CHSPT 07:53
PROVIDERS: PCP Family Medicine; Visit Provider Family Medicine
DX: E43 Unspecified severe protein-calorie malnutrition (principal); I25.10 Atherosclerotic heart disease of native coronary artery without angina pectoris; R53.1 Weakness; M25.519 Pain in unspecified shoulder; M54.12 Radiculopathy, cervical region; M54.5 Low back pain
CPT/HCPCS: 97014; 97110; 97112; 97116; 97140; 97161; 97165; 97530; 97535; G0283

== ENCOUNTER 2020-03-26 14:32 | Outpatient (NON) | payer MEDICARE, SELFPAY ==
[2020-03-26 14:46] LABS: Hematocrit 44.1 % (37.0-46.0); Hemoglobin 14.4 g/dL (12.4-15.3); Mean Corpuscular HGB Conc 32.7 g/dL (32.0-36.0); Mean Corpuscular Hemoglobin 28.4 pg (27.0-31.0); Mean Platelet Volume 9.9 fl (8.7-11.0); Platelet Count Result 275 K/mm3 (150-420); Red Blood Count 5.07 M/mm3 (4.70-6.10); Red Cell Distribution Width 13.1 % (11.6-14.4); White Blood Count 6.4 K/mm3 (4.8-10.8)
[2020-03-26 14:56] LABS: Creatinine Urine 102.59 mg/dL (40-278); MALB Creatinine Ratio 52.8 mg/g (0-30); Microalbumin Urine Random 54.2 mg/L
[2020-03-26 14:58] LABS: Hemoglobin A1C 5.7 % (<5.7)
[2020-03-26 15:18] LABS: Alanine Aminotransferase 19 U/L (16-63); Albumin Level 4.1 g/dL (3.4-5.0); Alkaline Phosphatase 54 U/L (46-116); Anion Gap 12 mmol/L (8-16); Aspartate Amino Transferase 13 U/L (15-37); Bilirubin,Total 0.4 mg/dL (0.00-1.00); Blood Urea Nitrogen 12 mg/dL (7-18); Calcium 9.8 mg/dL (8.5-10.1); Carbon Dioxide 25 mmol/L (21-32); Chloride 104 mmol/L (98-108); Cholesterol 135 mg/dL (0-200); Estimated Glomerular Filt Rate 57; Glucose 106 mg/dL (70-99); HDL Direct 48 mg/dL (40-60); LDL Cholesterol Calculated 60 mg/dL (<130); Osmolality Calculated 291 mOsm/kg (285-295); Potassium 4.4 mmol/L (3.5-5.1); Sodium 141 mmol/L (136-145); Total Protein 7.4 g/dL (6.4-8.2); Triglycerides 137 mg/dL (0-150)
== END 2020-03-26 14:33 ==
LOC: CHSLAB 14:33
PROVIDERS: Visit Provider Nurse Practitioner Family
DX: E78.5 Hyperlipidemia, unspecified (principal); E11.9 Type 2 diabetes mellitus without complications; I10 Essential (primary) hypertension
CPT/HCPCS: 36415; 80053; 80061; 82043; 83036; 85027

== ENCOUNTER 2020-03-30 14:19 | Outpatient (CLI) | payer MEDICARE, SELFPAY ==
[2020-03-30 14:36] LABS: Creatinine Urine 78.16 mg/dL (40-278); MALB Creatinine Ratio 46.5 mg/g (0-30); Microalbumin Urine Random 36.4 mg/L
== END 2020-03-30 14:20 | disposition home or self-care (01) ==
LOC: CHSLAB 14:22
PROVIDERS: PCP Family Medicine; Visit Provider Nurse Practitioner Family
DX: E11.9 Type 2 diabetes mellitus without complications (principal)
CPT/HCPCS: 82043

== ENCOUNTER 2020-04-11 15:42 | Emergency (ER) | payer MEDICARE, SELFPAY ==
--- NOTE | ~2020-04-11 | CT_ITS ---
EXAMINATION: CT abdomen pelvis wo con EXAM DATE: 04/11/2020 17:46 INDICATION: Left abd/flank pain, hematuria. TECHNIQUE: Spiral CT of the abdomen and pelvis was performed without contrast. Axial, coronal and sag ittal images were reviewed. The dose-length product (DLP) for this examination was 879.21 mGy-cm. T he exposure was tailored according to patient size (auto mA exposure control), and iterative reconstr uction (ASIR) was used as additional dose reduction technique. Comparison is made to prior examinatio n from 04/15/2015. FINDINGS: There is a left renal pelvic stone measuring 1.2 cm. There is mild to moderate left-sided h ydronephrosis and moderate to severe perinephric fat stranding. Additional bilateral nephrolithiasis, with 4 other left calyceal stones measuring up to 4 mm, and a right superior calyceal stone measurin g 7 mm. Mild prostatomegaly. Some prostate calcifications. The bladder is unremarkable. The liver, spleen, adrenal glands and pancreas are unremarkable. Gallbladder is unremarkable. No bi liary obstruction. There is no retroperitoneal or pelvic lymphadenopathy. There is mild to moderat e scattered arteriosclerotic disease. The appendix is normal. The stomach and small bowel are unremarkable. There is colonic fluid, corre late for diarrhea. No free intraperitoneal gas. The heart is normal in size. There are no perica rdial or pleural effusions. The lung bases are unremarkable. Moderate to severe lumbar spondylosis. There are no osteoblastic or osteolytic lesions identified. IMPRESSION: 1. Left UPJ 12 mm stone, mild to moderate hydronephrosis and moderate to severe perinephric fat stra nding. 2. Bilateral nephrolithiasis. 3. Mild prostatomegaly. 4. Colonic fluid. Reviewed, dictated and finalized at location A. 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 Left UPJ 12 mm stone, mild to moderate hydronephrosis and moderate to sever e perinephric fat stranding. 2. Bilateral nephrolithiasis. 3. Mild prostatomegaly. 4. Colonic fluid.
--- NOTE | 2020-04-11 16:04 | ED.BACK ---
HPI - Back Pain/Injury General Chief Complaint: Back Pain/Injury Stated Complaint: weakness,vomitting,back pain Time Seen by Provider: 04/11/20 16:05 Source: patient Mode of arrival: ambulatory Limitations: no limitations History of Present Illness HPI Narrative: 69-year-old man comes in today complaining of left mid back pain and flank pain present on waking this morning. Patient states that he also felt nauseous, had vomiting and episode of diarrhea. He has had several episodes of each since. He also feels feverish. Patient complains that he has got pain in his left flank and back. He denies hematuria, dysuria, hemoptysis, melena, hematochezia, syncope, chest pain and shortness of breath. He denies any recent sick exposures. He states it does not feel like the kidney stones he has had in the past. MD elicited complaint: back pain Pertinent past history: prior back pain and kidney stones Onset (ago): hour(s) (10) Timing: constant and progressively worsening Severity: moderate Similar Symptoms Previously: No Quality: sharp and aching Location: left flank and left lower back Radiation: none Exacerbating factors: none Relieving factors: none Context: history of kidney stones Associated symptoms: weakness, fatigue and fever Treatments prior to arrival: cold therapy and heat therapy Related Data Home Medications Medication Instructions Recorded Confirmed clopidogrel 75 mg PO DAILY 05/24/19 04/11/20 ezetimibe [Zetia] 10 mg PO DAILY 05/24/19 04/11/20 pramipexole 0.25 mg PO DAILY 05/24/19 04/11/20 fenofibrate nanocrystallized 48 mg 48 mg PO DAILY 03/26/20 04/11/20 tablet isosorbide mononitrate 60 mg 60 mg PO DAILY 03/26/20 04/11/20 tablet,extended release 24 hr nitroglycerin 0.4 mg sublingual 0.4 mg SUBLINGUAL Q5M PRN 03/26/20 04/11/20 tablet rosuvastatin 40 mg tablet 40 mg PO DAILY 03/26/20 04/11/20 Allergies Allergy/AdvReac Type Severity Reaction Status Date / Time No Known Allergies Allergy Verified 04/09/20 07:53 Review of Systems Constitutional: Constitutional: Reports fatigue, Reports fever(s) and Reports weakness Eyes: Eyes: Denies change in vision and Denies photophobia ENT: Denies dysphagia, Denies nasal congestion and Denies sore throat Cardiovascular: Cardiovascular: Denies chest pain and Denies radiating jaw, neck or arm pain Respiratory: Respiratory: Denies cough, Denies dyspnea and Denies wheezing Gastrointestinal: Gastrointestinal: Reports abdominal pain, Reports diarrhea, Reports nausea and Reports vomiting Genitourinary: Genitourinary: Denies hematuria, Denies dysuria and Denies urinary frequency Musculoskeletal: Musculoskeletal: Reports back pain, Denies arthralgias and Denies joint swelling Integumentary/Breasts: Skin/Breast: Denies pruritus, Denies erythema and Denies rash Neurologic: Denies vertigo, Denies dizziness and Denies syncope Allergic/Immunologic: Allergic/Immunologic: Denies lip swelling and Denies throat swelling PMFSH Past Medical History Medical History CAD (coronary artery disease) Chronic back pain Heart disease Heart disease Hypercholesterolemia Hyperlipidemia Hypertension Hypertension IBS (irritable bowel syndrome) Shoulder pain Type 2 diabetes mellitus Surgical History Surgical History History of coronary artery stent placement S/P CABG x 5 Family History Family History Mother , mother of old age at age 89 No problems noted. Father , father of old age at age 92 No problems noted. Social History Social History Smoking status: Former smoker Smoking end date: 03/19/04 Additional smoking assessment comments: does not smoke cigarettes Alcohol intake: never Substance use: never A
[2020-04-11 16:10] VITALS: BP 196/93; PULSE 65; RESP 20; TEMP 36.7; O2SAT 98
[2020-04-11] MEDS: SODIUM CHLORIDE 0.9% IV 500 ML 999 ML IV CONT (16:24)
[2020-04-11] MEDS: ONDANSETRON INJ 4 MG/2 ML VIAL IV PUSH (16:25)
[2020-04-11 16:39] LABS: Basophils Absolute Auto 0.04 K/mm3 (0.00-0.10); Basophils Percent Auto 0.5 % (0.0-1.0); Eosinophils Absolute Auto 0.08 K/mm3 (0.02-0.50); Hematocrit 42.5 % (37.0-46.0); Hemoglobin 13.9 g/dL (12.4-15.3); Immature Granulocyte Absolute 0.03 K/mm3 (0.00-0.00); Immature Granulocyte Percent A 0.4 % (0.0-0.0); Lymphocytes Absolute Auto 1.33 K/mm3 (1.10-4.50); Lymphocytes Percent Auto 17.1 % (18.0-42.0); Mean Corpuscular HGB Conc 32.7 g/dL (32.0-36.0); Mean Corpuscular Hemoglobin 28.5 pg (27.0-31.0); Mean Corpuscular Volume 87.3 fL (78.0-102.0); Monocytes Absolute Auto 0.74 K/mm3 (0.10-0.90); Monocytes Percent Auto 9.5 % (2.0-11.0); Neutrophils Absolute Auto 5.6 K/mm3 (1.7-7.2); Neutrophils Percent Auto 71.5 % (50.0-70.0); Platelet Count Result 240 K/mm3 (150-420); Red Blood Count 4.87 M/mm3 (4.70-6.10); Red Cell Distribution Width 13.1 % (11.6-14.4); White Blood Count 7.8 K/mm3 (4.8-10.8)
[2020-04-11 16:41] LABS: Add Urine Microscopic? YES; Appearance Urine Cloudy (Clear); Bilirubin Urine Negative (Negative); Blood Urine 3+ (Negative); Color Urine Yellow (Yellow); Glucose Urine UA Negative (Negative); Ketones Urine Negative (Negative); Leukocyte Esterase Ur Negative (Negative); Nitrate Urine Negative (Negative); Protein Urine Trace (Negative); Urobilinogen Urine 0.2 mg/dL (0.2-1.0); pH Urine 8.5 (5.0-8.0)
[2020-04-11 16:46] LABS: Amorphous Sediment Urine Moderate; Bacteria Urine 1+ /hpf; RBC Urine 21-50 /hpf (0-2); WBC Urine 0-3 /hpf (0-3)
[2020-04-11 16:55] LABS: Alanine Aminotransferase 16 U/L (16-63); Albumin Level 3.9 g/dL (3.4-5.0); Alkaline Phosphatase 50 U/L (46-116); Anion Gap 8 mmol/L (8-16); Aspartate Amino Transferase 14 U/L (15-37); Bilirubin,Total 0.7 mg/dL (0.00-1.00); Blood Urea Nitrogen 12 mg/dL (7-18); Calcium 9.3 mg/dL (8.5-10.1); Carbon Dioxide 28 mmol/L (21-32); Chloride 104 mmol/L (98-108); Estimated CRCL calculation 39 ml/min; Estimated Glomerular Filt Rate 45; Glucose 121 mg/dL (70-99); Lipase 80 U/L (73-393); Osmolality Calculated 290 mOsm/kg (285-295); Potassium 3.9 mmol/L (3.5-5.1); Sodium 140 mmol/L (136-145); Total Protein 7.6 g/dL (6.4-8.2)
[2020-04-11 16:56] LABS: Partial Thromboplastin Time 26.2 SEC (23.90-30.70); Prothrombin Time 11.4 Seconds (9.50-12.10)
[2020-04-11 17:00] LABS: Lactic Acid Reflex 1.3 mmol/L (0.4-2.0)
[2020-04-11 17:10] VITALS: BP 195/70; PULSE 60; RESP 20; O2SAT 98
[2020-04-11] MEDS: MORPHINE SULFATE (*CRX) 2 MG/ML INJ IV PUSH (17:35)
[2020-04-11 18:10] VITALS: PULSE 58; RESP 20; O2SAT 98
--- NOTE | 2020-04-11 18:24 | ECG_ITS ---
Measurements Intervals [place] Rate: 52 P: 24 ME: 192 QRS: -13 QRSD: 112 T: 46 QT: 423 QTc: 396 Interpretive Statements SINUS BRADYCARDIA DELAYED PRECORDIAL R/S TRANSITION VOLTAGE CRITERIA FOR LVH INFERIOR INFARCT, AGE INDETERMINATE BASELINE ARTIFACT- II, III, V2, V4 ABNORMAL ECG Electronically Signed On 04-12-2020 7:20:34 MASTER MACHINIST by Kaushik Lopez D.O.
[2020-04-11] MEDS: HYDROmorphone HCL INJ (*CRX) 2 MG/ML VIAL 0.5 MG IV PUSH (18:43)
[2020-04-11] MEDS: SODIUM CHLORIDE 0.9% IV 1,000 ML 150 ML IV CONT (18:43)
[2020-04-11 18:46] VITALS: BP 195/66; PULSE 57; RESP 20; O2SAT 97
[2020-04-11 18:57] VITALS: BP 170/71; PULSE 53; RESP 20; O2SAT 97
[2020-04-11 18:58] LABS: Troponin I 19.8 ng/L (0.00-60.4)
[2020-04-11 20:22] VITALS: BP 182/69; PULSE 57; RESP 20; O2SAT 97
== END 2020-04-11 20:25 | disposition short-term general hospital (02) ==
PROVIDERS: Emergency Provider Emergency Medicine; PCP Nurse Practitioner Family
DX: N13.2 Hydronephrosis with renal and ureteral calculous obstruction (principal); I25.10 Atherosclerotic heart disease of native coronary artery without angina pectoris; E78.5 Hyperlipidemia, unspecified; I10 Essential (primary) hypertension; E11.9 Type 2 diabetes mellitus without complications; Z87.891 Personal history of nicotine dependence
CPT/HCPCS: 36415; 74176; 80053; 81001; 83605; 83690; 84484; 85025; 85610; 85730; 87040; 87086; 93005; 96361; 96365; 96375; 99285; J0696; J1170; J2270; J2405; J7030; J7040

== ENCOUNTER 2020-04-11 20:55 | Observation (INO) | payer MEDICARE, SELFPAY ==
--- NOTE | ~2020-04-11 | XR_ITS ---
EXAMINATION: XR retrograde pyelo w/stent LT DATE: 04/12/2020 21:36 INDICATION: Left ureteral stent placement TECHNIQUE: A total of 47 images of the abdomen and pelvis were obtained during procedure performed by Dr. Mckee. Radiologist was not present for the imaging or procedure. The amount of fluoroscopy mana e used during this procedure was 0.7 minutes. COMPARISON: CT dated 04/11/2020 FINDINGS: The large stone at the left ureteropelvic junction is unchanged on the form drafter image. Retrograde contra st opacification outlining the stone with more proximal mild left hydronephrosis. Final images demons trate the proximal tip of a left internal ureteral stent extending into a middle calyx of the left ki dney. IMPRESSION: 1. Persistent large stone at the left ureteropelvic junction. 2. Left internal ureteral stent in expected position. See procedure note for further detail. Reviewed, dictated and finalized at location B. [employer] IMPRESSION: 1. Persistent large stone at the left ureteropelvic junction. 2. Left internal ureteral stent in expected position. See procedure note for fu rther detail.
--- NOTE | ~2020-04-11 | XR_ITS ---
EXAMINATION: XR abdomen/kub 1V EXAM DATE: 04/12/2020 08:15 INDICATION: Recheck kidney stone. TECHNIQUE: Frontal projection(s) of the abdomen for interpretation. Correlation is made to CT from . FINDINGS: There is a stone overlying the left UPJ measuring over 1 cm in size. There are smaller lalo ateral kidney stones. These findings have been indicated. Nonobstructive bowel gas pattern. There is mild lumbar dextroscoliosis. Moderate to large sized lumbar endplate osteophytes. IMPRESSION: 1. Left UPJ stone. Bilateral nephrolithiasis. Reviewed, dictated and finalized at location A. 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
--- NOTE | 2020-04-11 21:07 | ADMGEN ---
This patient, Calos Schmitz, was admitted to Medical Room 254-01. Patient/family oriented to hospital policies and general routines including ID bracelet, bed and alarms, visiting hours, pain management, procedures, bathroom and other care routines, personal items, smoking policy, room service/diet, and visiting hours. Information on how to activate the Rapid Response Team has been discussed. Patient/Family are encouraged to report perceived risks to care and to ask questions if they do not understand what they are told or what they should do.
[2020-04-11 22:27] VITALS: BMI 26.6
[2020-04-11 22:30] VITALS: BP 210/100; PULSE 63; RESP 20; TEMP 36.4; O2SAT 98
[2020-04-11] MEDS: SODIUM CHLORIDE 0.9% IV 1,000 ML 100 ML IV CONT (22:54)
[2020-04-11] MEDS: MORPHINE SULFATE (*CRX) 4 MG/ML INJ IV PUSH (22:54)
[2020-04-11] MEDS: DICYCLOMINE HCL 10 MG CAPSULE 20 MG PO (23:23)
[2020-04-12] VITALS (12 sets, daily range): BP systolic 108–210; BP diastolic 50–100; PULSE 41–60; RESP 11–20; TEMP 36.4–36.8; O2SAT 97–100
[2020-04-12] MEDS: HYDROmorphone HCL INJ (*CRX) 1 MG/ML SYR IV PUSH ×2 (01:10→16:30)
[2020-04-12 05:43] LABS: Anion Gap 4 mmol/L (8-16); Blood Urea Nitrogen 14 mg/dL (9-20); Calcium 8.7 mg/dL (8.4-10.2); Carbon Dioxide 28 mmol/L (22-30); Chloride 105 mmol/L (98-107); Estimated CRCL calculation 35 ml/min; Estimated Glomerular Filt Rate 40; Glucose 113 mg/dL (75-110); Potassium 3.8 mmol/L (3.4-5.0); Sodium 137 mmol/L (137-145)
--- NOTE | 2020-04-12 07:38 | WPDURCON ---
Assessment and Plan Assessment and plan (1) Left ureteral stone: Code(s): N20.1 - Calculus of ureter Status: Acute Assessment and Plan: We discussed going to the OR today for a left ureteral stent. He understands and will not be taking care of the stone at this time due to the large size of the stone and the fact he is on blood thinners. He understands risks of bleeding, infection, damage to the ureter, inability to place the stent. If all goes well he be discharged home afterwards with definitive stone management as an outpatient. (2) Hydronephrosis: Qualifiers: Hydronephrosis type: with renal calculous obstruction Qualified Code(s): N13.2 - Hydronephrosis with renal and ureteral calculous obstruction Code(s): N13.30 - Unspecified hydronephrosis Status: Acute (3) Bilateral kidney stones: Code(s): N20.0 - Calculus of kidney Status: Acute Urology Consult Note HPI Date Seen: 04/12/20 Requesting Physician: Celia Hamilton PA-C Primary Care Provider: Elisa Brar NP Consult Narrative Narrative: Calos Schmitz is a 69 year old male with a history of nephrolithiasis which passed on its own several years ago. Presented to an outside ER yesterday with acute onset left-sided flank pain. He had some nausea and vomiting x1 he denied any fevers, chills, dysuria, blood in the urine. He was diagnosed large proximal left ureteral stone with hydronephrosis. There is perinephric stranding but no signs of infection. He also has bilateral nonobstructive renal stones. He is currently feeling much better but is requiring pain medication. His nausea has improved. I will likely taken to the operating room this afternoon to place a stent to temporize things for future lithotripsy. Review of Systems Review of Systems: All systems reviewed & are unremarkable except as noted in HPI and below PMFSH Past Medical History Medical History CAD (coronary artery disease) Chronic back pain Heart disease Heart disease Hypercholesterolemia Hyperlipidemia Hypertension Hypertension IBS (irritable bowel syndrome) Shoulder pain Type 2 diabetes mellitus Surgical History Surgical History History of coronary artery stent placement S/P CABG x 5 Family History Family History (Updated 04/11/20 @ 21:10 by Lidia Andre RN) Mother , mother of old age at age 89 Hypertension Father , father of old age at age 92 Asthma Chronic obstructive pulmonary disease Hypertension Sibling Acute myocardial infarction Congestive heart failure Hypertension Alcohol abuse Social History Social History Smoking status: Former smoker Smoking end date: 03/19/04 Additional smoking assessment comments: does not smoke cigarettes Alcohol intake: never Substance use: never Additional living arrangements comments: Lives with Luci Has 2 children, A son and Daughter 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, 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, 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 Gender identity (if verbalized by the patient): Male Spiritual care concerns: No Meds Home Medications and Allergies Home Medications Medication Instructions Recorded Confirmed Type clopidogrel 75 mg PO DAILY 05/24/19 04/11/20 History ezetimibe [Zetia] 10 mg PO DAILY 05/24/19 04/11/20 History pramipexole 0.25 mg PO DAILY 05/24/19 04/11/20 History fenofibrate nanocrystallized 48 mg 48 mg PO DAILY 03/26/20 04/11/20 History tablet isosorbide mononitrate 60 mg 60 mg PO DAILY 03/26/20 04/11/20 History tablet,extended release 24 hr nitroglycerin 0.4 mg sublingual 0.4 mg SUBLINGUAL Q5M PRN 03/26/20 04/11/20 History tablet rosuvastatin 40 mg tablet 40 mg PO DAILY 03/26/20 04/11/20 History aspirin 81 mg chewable tablet 81 mg
[2020-04-12] MEDS: SODIUM CHLORIDE 0.9% IV 1,000 ML 100 ML IV CONT (08:49)
[2020-04-12] MEDS: hydroCHLOROthiazide 12.5 MG CAPSULE PO (08:51)
[2020-04-12] MEDS: DICYCLOMINE HCL 10 MG CAPSULE 20 MG PO (08:51)
[2020-04-12] MEDS: ISOSORBIDE MONONITRATE 60 MG TAB.ER.24H PO (08:51)
[2020-04-12] MEDS: EZETIMIBE 10 MG TABLET PO (08:51)
[2020-04-12] MEDS: LOSARTAN POTASSIUM 100 MG TABLET PO (08:51)
--- NOTE | 2020-04-12 09:54 | WPDANESEPPF ---
Anes - Initial Pre Proc Eval Procedure: Operation Date: 04/12/20 15:30 Proposed Procedures p CYSTOSCOPY,LEFT STENT PLACEMENT - Tim Mckee MD Date/Time: 04/12/20 09:54 Surgeon: Celia Hamilton PA-C Pre Op Diagnosis: UPJ stone, hydronephrosis Patient Data Age: 69 Gender: M Height: 1.73 m Weight: 79.4 kg Last Vital Signs Temp 36.7 C 04/12/20 07:29 Pulse 60 04/12/20 07:29 Resp 20 04/12/20 07:29 BP 164/67 H 04/12/20 07:29 Pulse Ox 98 04/12/20 07:29 Allergies Allergy/AdvReac Type Severity Reaction Status Date / Time No Known Allergies Allergy Verified 04/09/20 07:53 Home Medications Medication Instructions Recorded Confirmed Type clopidogrel 75 mg PO DAILY 05/24/19 04/11/20 History ezetimibe [Zetia] 10 mg PO DAILY 05/24/19 04/11/20 History pramipexole 0.25 mg PO DAILY 05/24/19 04/11/20 History fenofibrate nanocrystallized 48 mg 48 mg PO DAILY 03/26/20 04/11/20 History tablet isosorbide mononitrate 60 mg 60 mg PO DAILY 03/26/20 04/11/20 History tablet,extended release 24 hr nitroglycerin 0.4 mg sublingual 0.4 mg SUBLINGUAL Q5M PRN 03/26/20 04/11/20 History tablet rosuvastatin 40 mg tablet 40 mg PO DAILY 03/26/20 04/11/20 History aspirin 81 mg chewable tablet 81 mg PO DAILY #90 tablet 04/09/20 04/11/20 Rx dicyclomine 20 mg tablet 20 mg PO TID #90 tablet 04/09/20 04/11/20 Rx hydrochlorothiazide 12.5 mg tablet 12.5 mg PO DAILY #30 tablet 04/09/20 04/11/20 Rx losartan 100 mg tablet 100 mg PO DAILY #90 tablet 04/09/20 04/11/20 Rx metoprolol tartrate 25 mg tablet 25 mg PO BID #180 tablet 04/09/20 04/11/20 Rx Laboratory Tests 04/12/20 05:11 Sodium 137 mmol/L mmol/L (137-145) Potassium 3.8 mmol/L mmol/L (3.4-5.0) Chloride 105 mmol/L mmol/L (98-107) Carbon Dioxide 28 mmol/L mmol/L (22-30) Anion Gap 4 mmol/L L mmol/L (8-16) BUN 14 mg/dL mg/dL (9-20) Creatinine 1.70 mg/dL H mg/dL (0.7-1.3) Estim Creat Clear Calc 35 ml/min ml/min Estimated GFR 40 L (59 - ) Glucose 113 mg/dL H mg/dL (75-110) Calcium 8.7 mg/dL mg/dL (8.4-10.2) ECG: Date of Service: 04/11/20 Procedure(s): CA 12 lead EKG Accession Number(s): [id number] cc: ~ Measurements Intervals [place] Rate: 52 P: 24 MS: 192 QRS: -13 QRSD: 112 T: 46 QT: 423 QTc: 396 Interpretive Statements SINUS BRADYCARDIA DELAYED PRECORDIAL R/S TRANSITION VOLTAGE CRITERIA FOR LVH INFERIOR INFARCT, AGE INDETERMINATE BASELINE ARTIFACT- II, III, V2, V4 ABNORMAL ECG Electronically Signed On 04-12-2020 7:20:34 HEAD CHEF by Kaushik Lopez D.O. Dictated By: Kaushik Lopez DO 04/11/20 [id number] Patient hx anesthesia problems: none Family hx anesthesia problems: none [facility] Past Medical History Medical History (Updated 04/12/20 @ 13:38 by Celia Hamilton PA-C) CAD (coronary artery disease) Chronic back pain Heart disease Hyperlipidemia Hypertension IBS (irritable bowel syndrome) Shoulder pain Type 2 diabetes mellitus Surgical History Surgical History History of coronary artery stent placement S/P CABG x 5 Family History Family History Mother , mother of old age at age 89 Hypertension Father , father of old age at age 92 Asthma Chronic obstructive pulmonary disease Hypertension Sibling Acute myocardial infarction Congestive heart failure Hypertension Alcohol abuse Social History Social History (Updated 04/12/20 @ 13:27 by Celia Hamilton PA-C) Smoking packs per day: 2.5 Smoking cigarettes per day
--- NOTE | 2020-04-12 12:51 | PM.IMHP ---
H&P: HPI History of Present Illness Date/Time: 04/12/20 12:51 Chief Complaint: Left flank pain Narrative: Calos Schmitz is a 69 year old male with a history of coronary artery disease status post bypass surgery and multiple PCI, hypertension, dyslipidemia, who presented to the emergency department at [facility] for her left flank pain. Patient states when he woke up on 04/11/2020 he had a slight left-sided back pain, but continued to go on with his day. Then while he was walking around the house he felt a sudden sharp, stabbing pain to his left flank, like there was a knife in his back. He had associated symptoms of nausea, vomiting, diarrhea. He denies any radiation of his pain. Denies any dysuria, frequent urination, UA urgency with urination, urinary retention or urinary hesitancy. He does report having a kidney stone the past a few years ago that he was able to pass on his own. He denies any chest pain, shortness of breath, cough, fever, chills, abdominal pain, leg swelling, calf pain, lightheadedness, dizziness, syncopal episodes, or any other symptoms at this time. Initial vitals showed, he was afebrile, blood pressure 178/72, heart rate 53, respiratory rate 20, oxygen saturation 98% on room air. Initial labs showed normal CBC with differential, coag panel, slight elevation of creatinine 1.5, normal BUN at 12, otherwise normal CMP. Troponin was normal. Urine was cloudy with an elevated pH at 8.5, 3+ blood, 21-[address] abdomen pelvis showed Left UPJ 12 mm stone, mild to moderate hydronephrosis and moderate to severe perinephric fat stranding. Bilateral nephrolithiasis. Mild prostatomegaly. He was transferred to our facility for our urology services. Code status: DNR. Explained to the patient what do not resuscitate means and he completely understands. He states he has seen many family members who are at their end of life and feel as if they were dragged on. He states he would not want that. [id number]: , Shannan Schmitz Review of Systems Review of Systems: All systems reviewed & are unremarkable except as noted in HPI and below PMFSH Past Medical History Medical History (Updated 04/12/20 @ 13:38 by Celia Hamilton PA-C) CAD (coronary artery disease) Chronic back pain Heart disease Hyperlipidemia Hypertension IBS (irritable bowel syndrome) Shoulder pain Type 2 diabetes mellitus Surgical History Surgical History History of coronary artery stent placement S/P CABG x 5 Family History Family History Mother , mother of old age at age 89 Hypertension Father , father of old age at age 92 Asthma Chronic obstructive pulmonary disease Hypertension Sibling Acute myocardial infarction Congestive heart failure Hypertension Alcohol abuse Social History Social History (Updated 04/12/20 @ 13:27 by Celia Hamilton PA-C) Smoking packs per day: 2.5 Smoking cigarettes per day: 50.0 Years smoked: 40 Smoking pack-years: 100.00 Smoking status: Former smoker Smoking end date: 03/19/04 Alcohol intake: never Substance use: never Living arrangements: with family Additional living arrangements comments: Lives with his , Shannan and dogs that he has rescued. 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
--- NOTE | 2020-04-12 13:24 | WPDHPUPDATE1 ---
History and Physical Update Update Date/Time: 04/12/20 13:24 History and Physical has been reviewed, including an updated exam of the patient. There are NO changes in the patient's condition. Risks, benefits, and alternatives have been discussed and questions answered. Patient agrees to proceed with procedure.
[2020-04-12] MEDS: ceFAZolin SODIUM 1 GM VIAL 2 GM IV PUSH (14:14)
--- NOTE | 2020-04-12 14:27 | P.OP_ITS ---
Procedure Note - Detailed Date of procedure: 04/12/20 Pre-op diagnosis: UPJ stone, hydronephrosis Post-op diagnosis: same Procedure performed: cystoscopy, left retrograde pyelogram, left ureteral stent placement Description of procedure: he was correctly identified. Informed consent is obtained. He is brought the operating room. He was given general anesthesia. He was prepped and draped sterile fashion. Time-out was performed. Stone was easily seen on traffic signal repairer radiograph at the UPJ. I did a gentle retrograde pyelogram on the left. renal outline was seen. I placed a guidewire to the kidney. I then placed a 4.8 variable length stent. Proximal coil was the midpole kidney. Distal coil as the bladder. The bladder was drained. Uro jet was applied. He was awakened and transferred to PACU in stable condition. Anesthesia: GLMA Surgeon: Tim Mckee MD Estimated blood loss (mL): 0 Drains: Yes ( 4.8 variable length stent) Packing: No Pathology: none sent Complications: No immediate complications Condition: stable Disposition: PACU
[2020-04-12] MEDS: LACTATED RINGERS 1,000 ML 30 ML IV CONT (14:28)
[2020-04-12 15:11] LABS: Glucose Point of Care 108 (65-105)
[2020-04-12] MEDS: HYDROcodone/acetaminophen (*CRX) 5-325 MG TABLET 1 TAB PO (22:12)
[2020-04-13 05:46] LABS: Anion Gap 1 mmol/L (8-16); Blood Urea Nitrogen 16 mg/dL (9-20); Calcium 8.7 mg/dL (8.4-10.2); Carbon Dioxide 30 mmol/L (22-30); Chloride 104 mmol/L (98-107); Estimated CRCL calculation 43 ml/min; Estimated Glomerular Filt Rate 50; Glucose 130 mg/dL (75-110); Potassium 4.5 mmol/L (3.4-5.0); Sodium 135 mmol/L (137-145)
[2020-04-13 06:00] VITALS: BP 143/59; PULSE 58; RESP 14; TEMP 36.6; O2SAT 98
--- NOTE | 2020-04-13 07:14 | WPDANESPN ---
Anes - Prog Note Post-Op Date/Time: 04/13/20 07:14 Cardiovascular status: normal Respiratory status: normal Airway patency: baseline Mental status: baseline Post-Op hydration status: normal Vital Signs: Last Vital Signs Temp 97.9 F 04/13/20 06:00 Pulse 58 L 04/13/20 06:00 Resp 14 04/13/20 06:00 BP 143/59 H 04/13/20 06:00 Pulse Ox 98 04/13/20 06:00 Pain Score (VAS): 03/28 I/O: Intake & Output 04/12/20 04/12/20 04/13/20 15:59 23:59 07:59 Intake Total 1600 240 100 Output Total 150 525 450 Balance 1450 -285 -350 Laboratory Tests 04/13/20 05:14 04/12/20 04/13/20 15:09 05:14 Sodium 135 L Potassium 4.5 Chloride 104 Carbon Dioxide 30 Anion Gap 1 L BUN 16 Creatinine 1.40 H Estim Creat Clear Calc 43 Estimated GFR 50 L Glucose 130 H POC Capillary Glucose 108 Calcium 8.7 Magnesium 2.0 Post-procedural complaints: none Patient Feedback: Patient satisfied with anesthetic care.
[2020-04-13] MEDS: ROSUVASTATIN 10 MG TABLET 40 MG PO (08:28)
[2020-04-13] MEDS: CLOPIDOGREL BISULFATE 75 MG TABLET PO (08:28)
[2020-04-13] MEDS: PRAMIPEXOLE 0.25 MG TABLET PO (08:28)
[2020-04-13] MEDS: ASPIRIN 81 MG CHEWABLE TABLET PO (08:28)
[2020-04-13] MEDS: FENOFIBRATE,MICRONIZED 48 MG TABLET PO (08:28)
--- NOTE | 2020-04-13 11:01 | WPDUROPN2 ---
Progress Note: A&P Assessment and Plan (1) Bilateral kidney stones: Code(s): N20.0 - Calculus of kidney Status: Acute (2) Hydronephrosis: Qualifiers: Hydronephrosis type: with renal calculous obstruction Qualified Code(s): N13.2 - Hydronephrosis with renal and ureteral calculous obstruction Code(s): N13.30 - Unspecified hydronephrosis Status: Acute (3) Left ureteral stone: Code(s): N20.1 - Calculus of ureter Status: Acute Assessment and Plan: Plan to do a Left ESWL in a couple of weeks, if he can get off of anticoagulants per cardiology. Keep stent in place until then. Ok to discharge. Will call patient to schedule ESWL. Subjective Subjective Date/Time Seen: 04/13/20 11:01 POD #1 Cystoscopy, left ureteroscopy with stent placement, left retrograde pyelogram. Patient doing remarkably well, pain is tolerable except with urination and he c/o dysuria from the stent. Review of Systems Cardiovascular: Cardiovascular: Denies chest pain Respiratory: Respiratory: Reports no additional respiratory complaints Gastrointestinal: Gastrointestinal: Reports abdominal pain, Denies nausea and Denies vomiting Genitourinary: Genitourinary: Denies hematuria, Reports dysuria, Denies flank pain, Denies urinary frequency and Denies urinary hesitancy Exam Resp: Effort & Inspection: normal respiratory effort Cardio: Rate: bradycardic GI: GI Palp: Yes Soft to palpation and No Tenderness to palpation present (GI) : General: No no CVA tenderness Extrem: General: no edema Objective Data Vital Signs Vital Signs: Vital Signs - 24 hr 04/12/20 13:54 04/12/20 14:28 04/12/20 14:30 Temperature 97.6 F 98.3 F Pulse Rate 56 L 44 L 41 L Respiratory Rate 16 11 L 14 Blood Pressure 155/66 H 108/59 L 112/59 L Pulse Oximetry 99 100 100 04/12/20 14:45 04/12/20 15:00 04/12/20 15:15 Temperature Pulse Rate 47 L 53 L 54 L Respiratory Rate 14 15 17 Blood Pressure 142/62 H 158/71 H 153/70 H Pulse Oximetry 100 99 97 04/12/20 15:30 04/12/20 18:00 04/12/20 20:36 Temperature 97.8 F 98.2 F Pulse Rate 55 L 54 L 54 L Respiratory Rate 17 18 18 Blood Pressure 169/71 H 172/64 H 140/50 L Pulse Oximetry 97 100 98 04/13/20 06:00 Temperature 97.9 F Pulse Rate 58 L Respiratory Rate 14 Blood Pressure 143/59 H Pulse Oximetry 98 Intake/Output Intake/Output: Intake & Output 04/10/20 04/11/20 04/12/20 04/13/20 23:59 23:59 23:59 23:59 Intake Total 1840 340 Output Total 1175 450 Balance 665 -110 Meds/Results Radiology Results: ITS Impressions Abdomen X-Ray 04/12/20 08:43 IMPRESSION: 1. Left UPJ stone. Bilateral nephrolithiasis. Retrograde Pyelogram 04/13/20 09:46 IMPRESSION: 1. Persistent large stone at the left ureteropelvic junction. 2. Left internal ureteral stent in expected position. See procedure note for further detail. Labs Labs: Laboratory Results - last 24 hr 04/12/20 04/13/20 15:09 05:14 Sodium 135 L Potassium 4.5 Chloride 104 Carbon Dioxide 30 Anion Gap 1 L BUN 16 Creatinine 1.40 H Estim Creat Clear Calc 43 Estimated GFR 50 L Glucose 130 H POC Capillary Glucose 108 Calcium 8.7 Magnesium 2.0 Quality VTE Prophylaxis VTE prophylaxis: mechanical ordered
--- NOTE | 2020-05-09 14:51 | PM.DS ---
DS: Admitting Diagnosis Admitting Diagnosis Admitting Diagnosis: Abdominal pain DS: Discharge Diagnosis Discharge Diagnosis (1) Left ureteral stone: Code(s): N20.1 - Calculus of ureter Status: Acute Assessment and Plan: Patient was found to have a 12 mm kidney stone to the left UPJ. Urology was consulted and he is going to the OR this afternoon for stent placement. At this time the patient reports his pain is stable. Appreciate urology input Continue monitoring. (2) ABBEY (acute kidney injury): Code(s): N17.9 - Acute kidney failure, unspecified Status: Acute Assessment and Plan: Most likely secondary to large stone causing hydronephrosis. Will check BMP in 1 week for further monitoring after procedure. Continue monitoring. (3) Hydronephrosis: Qualifiers: Hydronephrosis type: with renal calculous obstruction Qualified Code(s): N13.2 - Hydronephrosis with renal and ureteral calculous obstruction Code(s): N13.30 - Unspecified hydronephrosis Status: Acute Assessment and Plan: Mild to moderate hydronephrosis to the left as well as moderate to severe monique phrenic fat stranding from the 12 mm kidney stone. This should improve after stent placement today Appreciate urology is input Continue monitoring. (4) Bilateral kidney stones: Code(s): N20.0 - Calculus of kidney Status: Acute Assessment and Plan: CT scan shows kidney stones bilaterally. This will need to be followed up with urology in the future after taking care of his acute large stone. (5) IBS (irritable bowel syndrome): Code(s): K58.9 - Irritable bowel syndrome without diarrhea Status: Acute Assessment and Plan: Chronic IBS, reporting normal bowel movements today. (6) Hypertension: Code(s): I10 - Essential (primary) hypertension Status: Chronic Assessment and Plan: Blood pressure was elevated secondary to severe pain. Blood pressure this morning was improved at 164/67 with pain control. Continue monitoring. Hydralazine IV as needed for hypertension. (7) Hyperlipidemia: Code(s): E78.5 - Hyperlipidemia, unspecified Status: Chronic Assessment and Plan: Continue statin medication. (8) Heart disease: Code(s): I51.9 - Heart disease, unspecified Status: Chronic Assessment and Plan: Denies any chest pain or worsening dyspnea on exertion prior to arrival or at this time. He sees Dr. Dhaliwal with [facility]. DS: Summary Hospital Course Reason for hospitalization: Chief Complaint: Left flank pain Narrative: Calos Schmitz is a 69 year old male with a history of coronary artery disease status post bypass surgery and multiple PCI, hypertension, dyslipidemia, who presented to the emergency department at [facility] for her left flank pain. Patient states when he woke up on 04/11/2020 he had a slight left-sided back pain, but continued to go on with his day. Then while he was walking around the house he felt a sudden sharp, stabbing pain to his left flank, like there was a knife in his back. He had associated symptoms of nausea, vomiting, diarrhea. He denies any radiation of his pain. Denies any dysuria, frequent urination, UA urgency with urination, urinary retention or urinary hesitancy. He does report having a kidney stone the past a few years ago that he was able to pass on his own. He denies any chest pain, shortness of breath, cough, fever, chills, abdominal pain, leg swelling, calf pain, lightheadedness, dizziness, syncopal episod
== END 2020-04-13 10:00 | disposition home or self-care (01) ==
PROVIDERS: Physician Assistant; Urology; Admitting Provider Internal Medicine; PCP Nurse Practitioner Family; Visit Provider Physician Assistant
PROC: (CPT 52352; principal; 2020-04-12 15:30)
DX: N13.2 Hydronephrosis with renal and ureteral calculous obstruction (principal); N17.9 Acute kidney failure, unspecified; E11.9 Type 2 diabetes mellitus without complications; E78.5 Hyperlipidemia, unspecified; I10 Essential (primary) hypertension; I25.10 Atherosclerotic heart disease of native coronary artery without angina pectoris; K58.9 Irritable bowel syndrome, unspecified; Z95.1 Presence of aortocoronary bypass graft; Z95.5 Presence of coronary angioplasty implant and graft; Z87.442 Personal history of urinary calculi; Z66 Do not resuscitate; Z87.891 Personal history of nicotine dependence; Z79.01 Long term (current) use of anticoagulants
CPT/HCPCS: 52332; 36415; 74018; 74420; 80048; 83735; 96361; 96374; 96375; 96376; A9270; C1769; C2617; G0378; G0379; J0690; J1100; J1170; J2270; J2405; J2704; J3010; J7030; J7120; Q9966

== ENCOUNTER 2020-05-02 10:15 | Emergency (ER) | payer MEDICARE, MEDICAID, SELFPAY ==
--- NOTE | ~2020-05-02 | CT_ITS ---
EXAMINATION: CT abdomen pelvis w con DATE: 05/02/2020 12:05 INDICATION: Left-sided abdominal pain since lithotripsy 4 days ago TECHNIQUE: Computed tomography (CT) of the abdomen and pelvis was performed with 100 cc Omnipaque 350 intravenous contrast. Automated exposure control and iterative reconstruction technique were employe d. Exam dose: 525.57 mGy-cm total exam DLP. COMPARISON: 04/07/2020 CT abdomen pelvis noncontrast examination FINDINGS: Status post sternotomy. Coronary artery calcifications. Heart size is within normal range. No pericardial or pleural effusion. The lung bases are clear of infiltrate or consolidation. The liver, gallbladder, bile ducts, spleen, pancreas, pancreatic duct and adrenal glands are unremark able. There is a subcapsular hematoma of the lateral and inferior aspect of the left kidney. There is a left internal urinary stent in expected position. There are multiple left renal nonobstructing calculi. There is 2 cm length [address] (linear array of ureteral calculi) of lithotripsy fragments at the proximal left ureter. Left internal urinary stent 8 mm nonobstructing upper pole right renal calculus. No right renal mass lesion or hydroureteronephro sis. There is however a 2 mm calculus in the region of the right ureterovesical junction. Prostate enlargement and calcifications. Diffuse idiopathic skeletal hyperostosis of the thoracic spine. Multilevel degenerative disc disease of the lumbar spine. IMPRESSION: 2 cm [address] proximal left ureter Left internal urinary stent Left subcapsular hematoma Bilateral nephrolithiasis 2 mm calculus at right ureterovesical junction, without hydronephrosis on the right Prostate enlargement and calcifications Reviewed, dictated and finalized at [facility]. Reviewed, dictated and finalized at [facility]. [facility] IMPRESSION: [address] proximal left ureter Left internal urinary stent Left subcapsular hematoma Bilateral nephrolithiasis 2 mm calculus at right ureterovesical junction, without hydronephrosis on the r ight Prostate enlargement and calcifications
[2020-05-02 10:15] VITALS: BP 123/67; PULSE 59; RESP 14; TEMP 36.8; O2SAT 100
[2020-05-02 11:17] LABS: Add Urine Microscopic? YES; Appearance Urine Clear (Clear); Bilirubin Urine Negative (Negative); Blood Urine 2+ (Negative); Color Urine Yellow (Yellow); Glucose Urine UA Negative (Negative); Ketones Urine Negative (Negative); Leukocyte Esterase Ur Negative (Negative); Nitrate Urine Negative (Negative); Protein Urine Negative (Negative); Specific Grav Ur <= 1.005 (1.010-1.020); Urobilinogen Urine 0.2 mg/dL (0.2-1.0); pH Urine 5.5 (5.0-8.0)
[2020-05-02 11:18] LABS: Basophils Absolute Auto 0.03 K/mm3 (0.00-0.10); Basophils Percent Auto 0.4 % (0.0-1.0); Eosinophils Percent Auto 4.9 % (1.0-6.0); Hematocrit 38.3 % (37.0-46.0); Hemoglobin 12.4 g/dL (12.4-15.3); Immature Granulocyte Absolute 0.02 K/mm3 (0.00-0.00); Immature Granulocyte Percent A 0.2 % (0.0-0.0); Lymphocytes Absolute Auto 1.55 K/mm3 (1.10-4.50); Mean Corpuscular HGB Conc 32.4 g/dL (32.0-36.0); Mean Corpuscular Hemoglobin 28.5 pg (27.0-31.0); Mean Platelet Volume 10.1 fl (8.7-11.0); Monocytes Absolute Auto 0.66 K/mm3 (0.10-0.90); Monocytes Percent Auto 8.1 % (2.0-11.0); Neutrophils Absolute Auto 5.5 K/mm3 (1.7-7.2); Neutrophils Percent Auto 67.4 % (50.0-70.0); Platelet Count Result 227 K/mm3 (150-420); Red Blood Count 4.35 M/mm3 (4.70-6.10); Red Cell Distribution Width 12.5 % (11.6-14.4); White Blood Count 8.2 K/mm3 (4.8-10.8)
[2020-05-02 11:27] LABS: Bacteria Urine Trace /hpf; Renal Epithelial Cells Urine Rare /hpf; Squamous Epithelial Cell Urine Few /hpf (Few); WBC Urine None seen /hpf (0-3)
[2020-05-02 11:34] LABS: Alanine Aminotransferase 18 U/L (16-63); Albumin Level 3.2 g/dL (3.4-5.0); Alkaline Phosphatase 50 U/L (46-116); Anion Gap 9 mmol/L (8-16); Aspartate Amino Transferase 10 U/L (15-37); Bilirubin,Total 0.5 mg/dL (0.00-1.00); Blood Urea Nitrogen 10 mg/dL (7-18); Calcium 8.5 mg/dL (8.5-10.1); Carbon Dioxide 27 mmol/L (21-32); Chloride 99 mmol/L (98-108); Estimated CRCL calculation 48 ml/min; Estimated Glomerular Filt Rate 60; Glucose 118 mg/dL (70-99); Lipase 81 U/L (73-393); Osmolality Calculated 280 mOsm/kg (285-295); Potassium 3.8 mmol/L (3.5-5.1); Sodium 135 mmol/L (136-145); Total Protein 6.5 g/dL (6.4-8.2)
[2020-05-02 11:41] LABS: Lactic Acid Reflex 0.9 mmol/L (0.4-2.0)
--- NOTE | 2020-05-02 12:09 | ED.ABDPAIN ---
HPI - Abdominal Pain General Chief Complaint: Urogenital-Male Stated Complaint: Weak,dizzy Source: patient and family Mode of arrival: ambulatory Limitations: no limitations History of Present Illness HPI narrative: Patient reportedly had a recent diagnosis of a large kidney stone on the left side. This was treated with a stent and just last week a lithotripsy. Patient states since lithotripsy he has had llq discomfort that has waxed and waned. He denies fever and chills. He denies pain in left back, left flank. Pain has been moderately severe and ongoing. This has not been relieved by acetaminophen at home. He was given some pain pills but has been taking them much. MD elicited complaint: abdominal pain Quality: dull Related Data Home Medications Medication Instructions Recorded Confirmed ezetimibe [Zetia] 10 mg PO DAILY 05/24/19 05/02/20 pramipexole 0.25 mg PO DAILY 05/24/19 05/02/20 fenofibrate nanocrystallized 48 mg 48 mg PO DAILY 03/26/20 05/02/20 tablet isosorbide mononitrate 60 mg 60 mg PO DAILY 03/26/20 05/02/20 tablet,extended release 24 hr nitroglycerin 0.4 mg sublingual 0.4 mg SUBLINGUAL Q5M PRN 03/26/20 05/02/20 tablet rosuvastatin 40 mg tablet 40 mg PO DAILY 03/26/20 05/02/20 Allergies Allergy/AdvReac Type Severity Reaction Status Date / Time No Known Allergies Allergy Verified 04/09/20 07:53 Review of Systems Review of Systems: ROS unobtainable: Yes unobtainable due to medical condition Constitutional: Constitutional: Reports no additional constitutional complaints Eyes: Eyes: Reports no additional eye complaints ENT: Reports system reviewed and no additional complaints, except as documented Cardiovascular: Cardiovascular: Reports no additional cardiovascular complaints Respiratory: Respiratory: Reports no additional respiratory complaints Gastrointestinal: Gastrointestinal: Reports no additional gastrointestinal complaints Genitourinary: Genitourinary: Reports no additional male genitourinary complaints Musculoskeletal: Musculoskeletal: Reports no additional musculoskeletal complaints Integumentary/Breasts: Skin/Breast: Reports system reviewed and no additional complaints, except as docu Neurologic: Reports system reviewed and no additional complaints, except as documented Psychiatric: Psychiatric: Reports no additional psychiatric complaints Endocrine: Endocrine: Reports no additional endocrine complaints Hematologic/Lymphatic: Hematologic/Lymphatic: Reports no additional hematologic/lymphatic complaints Allergic/Immunologic: Allergic/Immunologic: Reports no additional allergic/immunologic complaints [facility] Past Medical History Medical History CAD (coronary artery disease) Chronic back pain Heart disease Hyperlipidemia Hypertension IBS (irritable bowel syndrome) Shoulder pain Type 2 diabetes mellitus Surgical History Surgical History History of coronary artery stent placement S/P CABG x 5 Family History Family History Mother , mother of old age at age 89 Hypertension Father , father of old age at age 92 Asthma Chronic obstructive pulmonary disease Hypertension Sibling Acute myocardial infarction Congestive heart failure Hypertension Alcohol abuse Social History Social History Smoking packs per day: 2.5 Smoking cigarettes per day: 50.0 Years smoked: 40 Smoking pack-years: 100.00 Smoking status: Former smoker Smoking end date: 03/19/04 Alcohol intake: never Substance use: never Additional living arrangements comments: Lives with his , Shannan and dogs that he has rescued. 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
--- NOTE | 2020-05-02 12:47 | PC.NURSE ---
dr. cooney urologist exchange contacted at [phone]. awaiting call back
[2020-05-02 13:49] VITALS: BP 144/78; PULSE 73; RESP 14; TEMP 36.6; O2SAT 99
== END 2020-05-02 13:50 | disposition home or self-care (01) ==
PROVIDERS: Emergency Provider Emergency Medicine; PCP Nurse Practitioner Family
DX: R10.84 Generalized abdominal pain (principal); I25.10 Atherosclerotic heart disease of native coronary artery without angina pectoris; E78.5 Hyperlipidemia, unspecified; I10 Essential (primary) hypertension; E11.9 Type 2 diabetes mellitus without complications; Z87.891 Personal history of nicotine dependence
CPT/HCPCS: 36415; 74177; 80053; 81001; 83605; 83690; 85025; 99282; 99284; Q9967

== ENCOUNTER 2020-05-24 15:41 | Outpatient (CLI) | payer MEDICARE, MEDICAID, SELFPAY ==
--- NOTE | ~2020-05-24 | XR_ITS ---
XR abdomen/kub 1V 05/24/2020 16:01 Indication: Obstruction of left UPJ due to stones. Procedure: KUB Comparison: 04/12/2020 Findings: Bowel gas pattern is nonobstructive. There is a left internal ureteral stent present. There are bilateral renal stones. There has been interval fragmentation of a dominant left stone in the re nal pelvis with multiple small stones at the UPJ. Severe lower thoracic and lumbar spondylosis with d extroscoliosis. Impression: 1: Bilateral renal and multiple left UPJ stones. Left internal ureteral stent in expected position. Reviewed, dictated and finalized at [facility]. 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 Left internal ureteral stent i n expected position.
== END 2020-05-24 15:42 | disposition home or self-care (01) ==
PROVIDERS: PCP Nurse Practitioner Family; Visit Provider Urology
DX: N20.2 Calculus of kidney with calculus of ureter (principal)
CPT/HCPCS: 74018

== ENCOUNTER → 2020-06-25 00:55 | Outpatient (CLI) | payer MEDICARE, SELFPAY ==
[2020-06-25 19:49] LABS: SARS-CoV-2 RNA PCR Negative
== END ==
PROVIDERS: PCP Nurse Practitioner Family; Visit Provider Internal Medicine Gastroenterology
DX: Z01.812 Encounter for preprocedural laboratory examination (principal); Z20.822 Contact with and (suspected) exposure to COVID-19
CPT/HCPCS: C9803; U0003; U0005

== ENCOUNTER 2020-06-28 01:15 | Day surgery (SDC) | payer MEDICARE, MEDICAID, SELFPAY ==
[2020-06-14 13:54] VITALS: BMI 25.9
[2020-06-28 08:07] VITALS: BP 130/57; PULSE 68; RESP 18; TEMP 36.4; O2SAT 99
[2020-06-28] MEDS: LACTATED RINGERS 1,000 ML 150 ML IV CONT (08:19)
[2020-06-28 08:25] LABS: Glucose Point of Care 98 (65-105)
--- NOTE | 2020-06-28 08:28 | WPDANESEPPF ---
Anes - Initial Pre Proc Eval Procedure: Operation Date: 06/28/20 09:30 Proposed Procedures p Esophagogastroduodenoscopy & Colonoscopy - Eddie Lange MD Date/Time: 06/28/20 08:28 Surgeon: Eddie Lange MD Pre Op Diagnosis: weight loss, Hx of colon Polyps Patient Data Age: 69 Gender: M Height: 5 ft 8 in Weight: 75.6 kg Last Vital Signs Temp 97.5 F L 06/28/20 08:07 Pulse 68 06/28/20 08:07 Resp 18 06/28/20 08:07 BP 130/57 L 06/28/20 08:07 Pulse Ox 99 06/28/20 08:07 Allergies Allergy/AdvReac Type Severity Reaction Status Date / Time No Known Allergies Allergy Verified 06/14/20 13:51 Home Medications Medication Instructions Recorded Confirmed Type ezetimibe [Zetia] 10 mg PO DAILY 05/24/19 06/14/20 History pramipexole [Mirapex] 0.25 mg PO DAILY 05/24/19 06/14/20 History fenofibrate nanocrystallized 48 mg 48 mg PO DAILY 03/26/20 06/14/20 History tablet isosorbide mononitrate 60 mg 60 mg PO DAILY 03/26/20 06/14/20 History tablet,extended release 24 hr nitroglycerin 0.4 mg sublingual 0.4 mg SUBLINGUAL Q5M PRN 03/26/20 06/14/20 History tablet rosuvastatin 40 mg tablet 40 mg PO DAILY 03/26/20 06/14/20 History hydrocodone-acetaminophen [Hughes] 1 tablet PO Q4H PRN #30 tablet 04/12/20 06/14/20 Rx metoprolol succinate 50 mg 50 mg PO DAILY #90 tablet 05/11/20 06/14/20 Rx tablet,extended release 24 hr losartan 100 mg tablet 100 mg PO DAILY #90 tablet 05/26/20 06/14/20 Rx hydrochlorothiazide 12.5 mg tablet See Rx Instructions .ROUTE 06/25/20 06/28/20 Rx .COMPLEX #30 tablet Laboratory Tests 06/28/20 08:19 POC Capillary Glucose 98 mg/dl mg/dl (65-105) Patient hx anesthesia problems: none Family hx anesthesia problems: none PMFSH Past Medical History Medical History CAD (coronary artery disease) Chronic back pain Heart disease Hyperlipidemia Hypertension IBS (irritable bowel syndrome) Shoulder pain Type 2 diabetes mellitus Surgical History Surgical History History of coronary artery stent placement S/P CABG x 5 Family History Family History Mother , mother of old age at age 89 Hypertension Father , father of old age at age 92 Asthma Chronic obstructive pulmonary disease Hypertension Sibling Acute myocardial infarction Congestive heart failure Hypertension Alcohol abuse Social History Social History Smoking packs per day: 2.5 Smoking cigarettes per day: 50.0 Years smoked: 20 Smoking pack-years: 50.00 Smoking status: Former smoker Smoking end date: 03/19/04 Alcohol intake: never Substance use: never Substance use type: does not use Living arrangements: with family Additional living arrangements comments: Lives with his , Shannan and dogs that he has rescued. 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, [employer], [employer] Gender identity (if verbalized by the patient): Male Spiritual care concerns: No Anes - Eval Final PreProcedure Day of Procedure 06/28/20 08:28 Patient weight: overweight Heart: regular rate and rhythm Lungs: clear to auscultation Airway: Mallampati scale class II Neurological: alert and oriented Last oral intake: >/= 8 hours ASA classification: III Emergent: no Anesthetic plan: proceed Anesthesia type and monitoring: general GIVS and standard monitoring Informed Consent: The patient's anesthetic plan and its attendant risks and benefits were discussed with the patient/family/POA. Questions were solicited and answers provided to the satisfaction of the patient/family/POA.
--- NOTE | 2020-06-28 08:51 | PM.HPGS ---
History of Present Illness History of Present Illness Consent: Risks, benefits, and alternatives have been discussed and questions answered. Patient agrees to proceed with procedure. Chief complaint: weight loss, Hx of colon Polyps Narrative: Calos Schmitz is a 69 year old male with 60 lb weight loss. He has had difficulty swallowing, primarily liquids. After eating he will get full quickly and developed abdominal discomfort resulting in the urge usually to have a bowel movement. His stools have been rather loose lately. Previous evaluation with the CT scan has been negative Review of Systems Review of Systems: All systems reviewed & are unremarkable except as noted in HPI and below PMFSH Past Medical History Medical History CAD (coronary artery disease) Chronic back pain Heart disease Hyperlipidemia Hypertension IBS (irritable bowel syndrome) Shoulder pain Type 2 diabetes mellitus Surgical History Surgical History History of coronary artery stent placement S/P CABG x 5 Family History Family History Mother , mother of old age at age 89 Hypertension Father , father of old age at age 92 Asthma Chronic obstructive pulmonary disease Hypertension Sibling Acute myocardial infarction Congestive heart failure Hypertension Alcohol abuse Social History Social History Smoking packs per day: 2.5 Smoking cigarettes per day: 50.0 Years smoked: 20 Smoking pack-years: 50.00 Smoking status: Former smoker Smoking end date: 03/19/04 Alcohol intake: never Substance use: never Substance use type: does not use Living arrangements: with family Additional living arrangements comments: Lives with his , Shannan and dogs that he has rescued. 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 Gender identity (if verbalized by the patient): Male Spiritual care concerns: No Meds Home Medications and Allergies Home Medications Medication Instructions Recorded Confirmed Type ezetimibe [Zetia] 10 mg PO DAILY 05/24/19 06/14/20 History pramipexole [Mirapex] 0.25 mg PO DAILY 05/24/19 06/14/20 History fenofibrate nanocrystallized 48 mg 48 mg PO DAILY 03/26/20 06/14/20 History tablet isosorbide mononitrate 60 mg 60 mg PO DAILY 03/26/20 06/14/20 History tablet,extended release 24 hr nitroglycerin 0.4 mg sublingual 0.4 mg SUBLINGUAL Q5M PRN 03/26/20 06/14/20 History tablet rosuvastatin 40 mg tablet 40 mg PO DAILY 03/26/20 06/14/20 History hydrocodone-acetaminophen [Ford] 1 tablet PO Q4H PRN #30 tablet 04/12/20 06/14/20 Rx metoprolol succinate 50 mg 50 mg PO DAILY #90 tablet 05/11/20 06/14/20 Rx tablet,extended release 24 hr losartan 100 mg tablet 100 mg PO DAILY #90 tablet 05/26/20 06/14/20 Rx hydrochlorothiazide 12.5 mg tablet See Rx Instructions .ROUTE 06/25/20 06/28/20 Rx .COMPLEX #30 tablet Allergies Allergy/AdvReac Type Severity Reaction Status Date / Time No Known Allergies Allergy Verified 06/14/20 13:51 Vital Signs Vital Signs - 24 hr 06/28/20 08:07 Temperature 36.4 C L Pulse Rate 68 Respiratory Rate 18 Blood Pressure 130/57 L Pulse Oximetry 99 Exam Const: General: alert Orientation/consciousness: patient oriented x3 Resp: Auscultation: clear to auscultation bilaterally Cardio: Rhythm: regular rhythm GI: GI Palp: Yes Soft to palpation and No Tenderness to palpation present (GI) Neuro: General: patient oriented x3 Assessment and Plan Assessment and plan (1) Dysphagia: Code(s): R13.10 - Dysphagia, unspecified Status: Acute Assessment and Plan: EGD with possible biopsy or dilatation or cautery. (2) Change in bowel habits: Code(s):
[2020-06-28 09:54] VITALS: BP 86/43; PULSE 60; RESP 18; O2SAT 100
[2020-06-28 10:04] VITALS: BP 103/55; PULSE 49; RESP 18; O2SAT 100
[2020-06-28 10:14] VITALS: BP 133/69; PULSE 47; RESP 18; O2SAT 100
--- NOTE | 2020-06-28 15:14 | SUR.PHASEII ---
1013 DR. JOSEPH NOTIFIED OF POSITIVE H. PYLORI TEST. NO ORDERS RECEIVED.
== END 2020-06-28 10:35 | disposition home or self-care (01) ==
PROVIDERS: PCP Nurse Practitioner Family; Visit Provider Internal Medicine Gastroenterology
PROC: 0DJ08ZZ Inspection of Upper Intestinal Tract, Via Natural or Artificial Opening Endoscopic (ICD-10-PCS; CPT 43235; principal; 2020-06-28 09:30)
DX: R19.4 Change in bowel habit (principal); D12.0 Benign neoplasm of cecum; D12.3 Benign neoplasm of transverse colon; I25.10 Atherosclerotic heart disease of native coronary artery without angina pectoris; I11.9 Hypertensive heart disease without heart failure; E78.5 Hyperlipidemia, unspecified; K58.9 Irritable bowel syndrome, unspecified; E11.9 Type 2 diabetes mellitus without complications; Z95.9 Presence of cardiac and vascular implant and graft, unspecified; Z95.1 Presence of aortocoronary bypass graft; Z95.5 Presence of coronary angioplasty implant and graft; Z87.891 Personal history of nicotine dependence; R13.10 Dysphagia, unspecified; R63.4 Abnormal weight loss; K29.70 Gastritis, unspecified, without bleeding
CPT/HCPCS: 45385; 45381; 43450; 43239; 82948; 87081; 88305; J2370; J2704; J7120

== ENCOUNTER 2020-06-30 10:36 | Outpatient (CLI) | payer MEDICARE, SELFPAY ==
[2020-06-30 10:49] LABS: Basophils Absolute Auto 0.04 K/mm3 (0.00-0.10); Basophils Percent Auto 0.7 % (0.0-1.0); Eosinophils Absolute Auto 0.19 K/mm3 (0.02-0.50); Eosinophils Percent Auto 3.2 % (1.0-6.0); Hematocrit 39.4 % (37.0-46.0); Hemoglobin 12.7 g/dL (12.4-15.3); Immature Granulocyte Absolute 0.02 K/mm3 (0.00-0.00); Immature Granulocyte Percent A 0.3 % (0.0-0.0); Lymphocytes Absolute Auto 1.48 K/mm3 (1.10-4.50); Lymphocytes Percent Auto 24.6 % (18.0-42.0); Mean Corpuscular HGB Conc 32.2 g/dL (32.0-36.0); Mean Corpuscular Hemoglobin 28.5 pg (27.0-31.0); Mean Corpuscular Volume 88.5 fL (78.0-102.0); Mean Platelet Volume 9.6 fl (8.7-11.0); Monocytes Absolute Auto 0.54 K/mm3 (0.10-0.90); Neutrophils Absolute Auto 3.8 K/mm3 (1.7-7.2); Neutrophils Percent Auto 62.2 % (50.0-70.0); Platelet Count Result 253 K/mm3 (150-420); Red Blood Count 4.45 M/mm3 (4.70-6.10); Red Cell Distribution Width 13.4 % (11.6-14.4)
[2020-06-30 10:59] LABS: Hemoglobin A1C 5.9 % (<5.7)
[2020-06-30 12:24] LABS: Alanine Aminotransferase 21 U/L (16-63); Albumin Level 3.7 g/dL (3.4-5.0); Alkaline Phosphatase 46 U/L (46-116); Anion Gap 10 mmol/L (8-16); Aspartate Amino Transferase 13 U/L (15-37); Bilirubin,Total 0.4 mg/dL (0.00-1.00); Blood Urea Nitrogen 21 mg/dL (7-18); Calcium 9.3 mg/dL (8.5-10.1); Carbon Dioxide 26 mmol/L (21-32); Chloride 104 mmol/L (98-108); Estimated Glomerular Filt Rate 55; Glucose 112 mg/dL (70-99); Osmolality Calculated 294 mOsm/kg (285-295); Sodium 140 mmol/L (136-145); Total Protein 6.8 g/dL (6.4-8.2)
== END 2020-06-30 10:37 | disposition home or self-care (01) ==
LOC: CHSLAB 10:39
PROVIDERS: PCP Nurse Practitioner Family; Visit Provider Nurse Practitioner Family
DX: I51.9 Heart disease, unspecified (principal); N17.9 Acute kidney failure, unspecified; E11.9 Type 2 diabetes mellitus without complications; M54.9 Dorsalgia, unspecified; G89.29 Other chronic pain
CPT/HCPCS: 36415; 80053; 83036; 85025; 87077; 87086; 87088; 87186

== ENCOUNTER 2021-04-25 07:05 | Outpatient (CLI) | payer MEDICARE, SELFPAY ==
--- NOTE | ~2021-04-25 | US_ITS ---
EXAMINATION: [facility] EXAM DATE: 04/25/2021 07:37 INDICATION: F17.200 - Nicotine dependence, unspecified, uncomplicated. TECHNIQUE: Multiple grayscale and Doppler images of the abdominal aorta were obtained (by a technolog ist who performed the scan) and subsequently reviewed. There is no prior study for comparison. FINDINGS: There is mild abdominal aortic atherosclerosis. Measurements are within normal limits at 2.5 cm proxi trista, 2.4 cm mid aspect, tapering to the bifurcation. The common iliac arteries are 1.0 cm in diamet er. IMPRESSION: Mild abdominal atherosclerosis. Normal caliber. Reviewed, dictated and finalized at location B. RTMENT STORE GENERAL MANAGER
== END 2021-04-25 07:06 | disposition home or self-care (01) ==
LOC: CHSIMG 07:08
PROVIDERS: PCP Nurse Practitioner Family; Visit Provider Nurse Practitioner Family
DX: F17.200 Nicotine dependence, unspecified, uncomplicated (principal)
CPT/HCPCS: 76706

== ENCOUNTER 2021-10-18 11:10 | Outpatient (CLI) | payer MEDICARE, SELFPAY ==
[2021-10-18 12:29] LABS: Basophils Percent Auto 0.3 % (0.2-1.2); Eosinophils Absolute Auto 0.2 K/mm3 (0-0.3); Eosinophils Percent Auto 2.7 % (0-4.4); Hematocrit 43.1 % (42.0-52.0); Hemoglobin 13.7 g/dL (14.0-18.0); Immature Granulocyte Absolute 0.03 K/mm3 (0.00-0.031); Immature Granulocyte Percent A 0.4 % (0-0.5); Lymphocytes Absolute Auto 1.72 K/mm3 (0.9-3.2); Lymphocytes Percent Auto 23.4 % (18.3-44.2); Mean Corpuscular HGB Conc 31.8 g/dl (32-36); Mean Corpuscular Hemoglobin 28.2 pg (26-34); Mean Corpuscular Volume 88.7 fl (80-100); Mean Platelet Volume 9.2 fl (7.4-10.4); Monocytes Absolute Auto 0.6 K/mm3 (0.1-0.6); Monocytes Percent Auto 7.9 % (2.6-8.5); Neutrophils Absolute Auto 4.8 K/mm3 (1.3-6.7); Neutrophils Percent Auto 65.3 % (45.5-73.1); Platelet Count Result 242 k/mm3 (150-375); Red Blood Count 4.86 M/mm3 (4.6-6.20); Red Cell Distribution Width 13.4 % (11.5-14.5); White Blood Count 7.4 K/mm3 (4.5-10.0)
[2021-10-18 12:29] LABS: Appearance Urine Clear (Clear); Bilirubin Urine Negative (Negative); Blood Urine Negative (Negative); Color Urine Yellow (Yellow); Glucose Urine UA Negative (Negative); Ketones Urine Negative (Negative); Leukocyte Esterase Ur Negative LEU/UL (Negative); Nitrate Urine Negative (Negative); Protein Urine Negative (Negative); Urobilinogen Urine 0.2 mg/dL (<2.0)
[2021-10-18 12:32] LABS: Add Urine Microscopic? NO
[2021-10-18 12:38] LABS: Anion Gap 9 mmol/L (8-16); Blood Urea Nitrogen 19 mg/dL (9-20); Calcium 8.9 mg/dL (8.4-10.2); Carbon Dioxide 26 mmol/L (22-30); Chloride 104 mmol/L (98-107); Estimated Glomerular Filt Rate > 60; Glucose 107 mg/dL (65-110); Potassium 4.5 mmol/L (3.4-5.0); Sodium 139 mmol/L (137-145)
[2021-10-18 12:40] LABS: Hemoglobin A1C 5.7 % (<5.7)
[2021-10-18 12:42] LABS: Urine Cotinine NEGATIVE
[2021-10-18 12:44] LABS: Prothrombin Time 12.9 Seconds (11.1-14.7)
[2021-10-18 12:45] LABS: Partial Thromboplastin Time 25.6 SECONDS (22.3-36.8)
== END 2021-10-18 11:11 | disposition home or self-care (01) ==
LOC: ANHSURGERY 11:18
PROVIDERS: PCP Family Medicine; Visit Provider Orthopaedic Surgery
DX: M17.10 Unilateral primary osteoarthritis, unspecified knee (principal); Z01.818 Encounter for other preprocedural examination
CPT/HCPCS: 80048; 80307; 81003; 82040; 83036; 85025; 85610; 85730; 87081

== ENCOUNTER 2021-11-01 01:52 | Day surgery (SDC) | payer MEDICARE, SELFPAY ==
[2021-10-18 11:15] VITALS: BP 200/80; PULSE 62; RESP 20; TEMP 37.2; O2SAT 98; BMI 34.0
--- NOTE | 2021-10-18 11:15 | PC.NURSE ---
PRE-OP INSTRUCTIONS, PLEASE READ CAREFULLY Report to the Outpatient Waiting Room, entrance under the green pavilion located off [facility], at time _1000_ on date _11/01/21_. OR Time: _1200_. - You and your visitor will be asked a series of questions to screen for COVID 19 for your protection. - A mask is required within the hospital. - Only one visitor is allowed at this time. - The patient visitor is requested to leave or wait in car when not with patient. - PACK A SMALL OVERNIGHT BAG AND LEAVE IN THE CAR, ALONG WITH YOUR WALKER. VISITING HOURS 10AM-8PM, PARK IN FRONT PARKING LOT AND USE MAIN HOSPITAL ENTRANCE Patients may have clear liquids (water, carbonated beverages, clear teas, apple juice) until 3 hours prior to surgery (0900 AM) with a maximum of 20 ounces. - No food from midnight until time of surgery Take the following medications with a SIP of water the morning of surgery: _ISOSORBIDE, METOPROLOL_ Medications to discontinue __STATES PER DR. GAINES'S INSTRUCTIONS TO CONTINUE ASPIRIN__ Medications to discontinue PER ANESTHESIA - _PREVAGEN 3 DAYS PRIOR TO SURGERY, DATE TO TAKE LAST DOSE 10/30/21_ Please no deodorant, or body powder the day of surgery. No jewelry (including any body piercings) or valuables the day of surgery, leave them at home. Please take a shower or bath the night before, or the morning of, surgery with an antibacterial soap. Wear comfortable, loose fitting clothing. - Jewelry must be removed prior to entering the operating room. Rings and piercings that are not removed may be cut off. - The hospital will not accept responsibility for valuables. - Please leave all valuables, including medications, at home the day of surgery. If you are going home after surgery, a licensed lifter/driver must drive you home. - NO public transportation without another adult. - We recommend that an adult stay with you for 24 hours following discharge. - We also recommend that you do not drive, make important decision, drink alcoholic beverages, or take any drugs that were not prescribed by your health care provider for at least 24 hours after your discharge time. Follow any additional instructions given to you from your surgeon. If you or anyone in your household have experienced Covid symptoms in the past week, please notify your surgeon or the nurse liaison at the phone number below for possible testing. Instructions given to _PT & SPOUSE (GERSON)_and asked if any additional questions and then verbalized understanding. Patient advised to call surgeon office or pre surgery nurse liaison [phone] if any additional questions.
[2021-11-01] VITALS (17 sets, daily range): BP systolic 121–184; BP diastolic 54–95; PULSE 52–85; RESP 12–22; TEMP 36–36.7; O2SAT 94–100
--- NOTE | ~2021-11-01 | XR_ITS ---
EXAMINATION: XR knee RT 2V DATE: 11/01/2021 15:24 CDT INDICATION: Right total knee arthroplasty TECHNIQUE: 2 views right knee FINDINGS: There is a right total knee arthroplasty in expected position. Subcutaneous gas with fluid and air in the joint and overlying skin milton are consistent with recent surgery. No evidence of p eriprosthetic fracture. IMPRESSION: 1. Recent right total knee arthroplasty. Reviewed, dictated and finalized at location B.
--- NOTE | 2021-11-01 08:27 | WPDANESEPPF ---
Anes - Initial Pre Proc Eval Procedure: Operation Date: 11/01/21 12:00 Proposed Procedures p Right Total Knee Arthroplasty - Artem Canales MD Date/Time: 11/01/21 08:27 Surgeon: Artem Canales MD Pre Op Diagnosis: right knee djd Patient Data Age: 71 Gender: M Height: 1.63 m Weight: 89.8 kg Last Vital Signs Temp 37.2 C 10/18/21 11:15 Pulse 62 10/18/21 11:15 Resp 20 10/18/21 11:15 BP 200/80 H 10/18/21 11:15 Pulse Ox 98 10/18/21 11:15 O2 Del Method Room Air 10/18/21 11:15 Allergies Allergy/AdvReac Type Severity Reaction Status Date / Time No Known Allergies Allergy Verified 11/01/21 09:54 Home Medications Medication Instructions Recorded Confirmed Type nitroglycerin 0.4 mg sublingual 0.4 mg sublingual Q5M PRN Chest 03/26/20 11/01/21 History tablet (Nitrostat) Pain aspirin 81 mg tablet,delayed 81 mg PO DAILY 06/30/20 11/01/21 History release dicyclomine 20 mg tablet 10 mg PO TID 06/30/20 11/01/21 History ezetimibe 10 mg tablet (Zetia) 10 mg PO DAILY #90 tabs 09/06/21 11/01/21 Rx fenofibrate nanocrystallized 48 mg 48 mg PO DAILY #90 tabs 09/06/21 11/01/21 Rx tablet (Tricor) losartan 50 mg tablet 50 mg PO DAILY #90 tabs 09/06/21 11/01/21 Rx rosuvastatin 40 mg tablet (Crestor) 40 mg PO DAILY #90 tabs 09/06/21 11/01/21 Rx Prevagen 1 tab-cap DAILY 10/18/21 11/01/21 History hydrochlorothiazide 12.5 mg tablet 12.5 mg DAILY 10/18/21 11/01/21 History isosorbide mononitrate 60 mg 60 mg DAILY 10/18/21 11/01/21 History tablet,extended release 24 hr metoprolol succinate 50 mg 50 mg DAILY 10/18/21 11/01/21 History tablet,extended release 24 hr pramipexole 0.25 mg tablet See Rx Instructions .Route .COMPLEX 10/18/21 11/01/21 History (Mirapex) Patient hx anesthesia problems: none Family hx anesthesia problems: none Results Review: All pre-operative results and documents have been reviewed as part of the pre-operative evaluation. [facility] Past Medical History Medical History ABBEY (acute kidney injury) Bilateral kidney stones CAD (coronary artery disease) Change in bowel habits Chronic back pain Confusion Dysphagia Heart disease Hydronephrosis Hyperlipidemia Hypertension IBS (irritable bowel syndrome) Kidney stones Left ureteral stone Nicotine dependence Shoulder pain Type 2 diabetes mellitus Unexplained weight loss Surgical History Surgical History (Updated 10/07/21 @ 12:33 by GERI Arevalo) H/O lithotripsy History of coronary artery stent placement History of heart artery stent S/P CABG x 5 Family History Family History Mother , mother of old age at age 89 Hypertension Father , father of old age at age 92 Asthma Chronic obstructive pulmonary disease Hypertension Sibling Acute myocardial infarction Congestive heart failure Hypertension Alcohol abuse Social History Social History Smoking packs per day: 2.5 Smoking cigarettes per day: 50.0 Years smoked: 20 Smoking pack-years: 50.00 Smoking status: Former smoker Tobacco type: cigarettes Second hand tobacco smoke exposure: No Smoking end date: 03/19/04 Additional smoking assessment comments: PT DENIES ALL FORMS OF TOBACCO USE Alcohol intake: never Alcohol use details: does not use alcohol Substance use: never Substance use type: does not use Living arrangements: with family Additional living arrangements comments: Lives with his , Shannan and dogs that he has rescued. 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
--- NOTE | 2021-11-01 08:28 | WPDANESPNB ---
Anes - Peripheral Nerve Block Date/Time: 11/01/21 08:28 I have discussed with the patient/family/POA the placement of a peripheral nerve block for post-operative pain management, including associated risks, benefits, complications, and side effects. Alternative methods of post-operative analgesia were detailed. Questions were solicited and answers provided to the satisfaction of the patient/family/POA. Time-Out: A pre-procedural Time-Out was completed immediately before starting the procedure and confirmed: Patient Identification, Site, Procedure, Patient Position and the Availability of Requisite Equipment. Clinical Indications: Acute post-operative pain management requested by the operative surgeon. Nerve Block Insertion Note Anes-nerve block: adductor canal Patient position: supine Skin prep: chlorhexidine Needle: 22 gauge, stimulating, insulated echogenic needle. Needle length: 80 mm Technique: ultrasound Injectate: bupivacaine 0.5% with epi 5 mcg/ml (30cc - no epi) Observations: tolerated well Complications: none Procedure start time:: 1227 Procedure end time:: 1231
[2021-11-01] MEDS: ACETAMINOPHEN 500 MG TABLET 1000 MG PO (10:11)
[2021-11-01] MEDS: LACTATED RINGERS 1,000 ML 30 ML IV CONT ×3 (10:25→15:54)
--- NOTE | 2021-11-01 10:26 | SUR.PREOP ---
[address] garnett about scabbed scratches x3 to right leg/outer knee.to continue preparing for surgery.
[2021-11-01] MEDS: TRANEXAMIC ACID 1,000MG/ISO100 1,000 MG/100 ML BAG 200 MG IVPB (11:29)
--- NOTE | 2021-11-01 11:36 | WPDHPUPDATE1 ---
History and Physical Update Update Date/Time: 11/01/21 11:36 History and Physical has been reviewed, including an updated exam of the patient. There are NO changes in the patient's condition. Risks, benefits, and alternatives have been discussed and questions answered. Patient agrees to proceed with procedure.
[2021-11-01] MEDS: ceFAZolin 2 GM/D5W 50 ML 2 GM/50 ML BAG IVPB ×2 (12:33→18:44)
[2021-11-01] MEDS: GENTAMICIN BONE CEMENT REFOBACIN 1 EACH TOPICAL (13:49)
[2021-11-01] MEDS: TRANEXAMIC ACID 1,000 MG/10 ML AMPUL 1000 MG IV PUSH (14:05)
--- NOTE | 2021-11-01 14:59 | W.PM.PROC2 ---
Procedure Note - Detailed Date of Procedure 11/01/21 Pre-op Diagnosis right knee djd Post-op Diagnosis Same Procedure Performed R TKA Surgeon Artem Canales MD Anesthesia General Description of Procedure THE RIGHT KNEE WAS PREPPED AND DRAPED IN THE STERILE FASHION. THERE WAS A 15 DEGREE FLEXION CONTRACTURE. A MIDLINE SKIN INCISION WAS MADE. A MEDIAL PARAPATELLAR ARTHROTOMY WAS MADE. THE PATELLA WAS EVERTED. THERE WAS TRICOMPARTMENT DJD. AN INTRAMEDULLARY DARIN WAS PLACED IN THE FEMUR. A DISTAL FEMORAL CUT WAS MADE IN 5 DEGREES OF VALGUS REMOVING APPROXIMATELY 11 MM OF BONE FROM THE DISTAL FEMUR. THE FEMUR WAS SIZED TO 67.5. A 67.5 FEMORAL CUTTING BLOCK WAS PLACED IN 3 DEGREES OF EXTERNAL ROTATION AND IN ALIGNMENT WITH MAURA'S LINE AND THE TRANSEPICONDYLAR AXIS. ANTERIOR POSTERIOR AND CHAMFER CUTS WERE MADE. THE CUTS WERE EXCELLENT. NEXT AN INTRAMEDULLARY CUTTING GUIDE WAS PLACED IN THE TIBIA. A TRANS TIBIAL CUT WAS MADE ALONG THE LONG AXIS OF THE TIBIA. APPROXIMATELY 10 MM OF BONE WAS REMOVED FROM THE HIGH SIDE OF THE TIBIA. THE TIBIA WAS THEN PLANED TO A SMOOTH SURFACE. POSTERIOR FEMORAL OSTEOPHYTES WERE REMOVED FROM THE FEMORAL CONDYLES. A 75 TIBIAL TRIAL WAS PLACED IN ALIGNMENT WITH THE 1/3 MEDIAL ASPECT OF THE TIBIAL TUBERCLE. THEN A 67.5 FEMORAL TRIAL COMPONENT WAS PLACED. BOTH HAD EXCELLENT FITS. EVENTUALLY AN 11 MM CR POLYETHYLENE TRIAL COMPONENT WAS PLACED. THE KNEE WAS TAKEN THROUGH A RANGE OF MOTION. THE KNEE CAME OUT TO FULL EXTENSION. THERE WAS NO ABNORMAL TILT TO THE PATELLA. THERE WAS GOOD A/P AND VARUS/VALGUS STABILITY. THERE WAS NO EXCESSIVE ROLL BACK WITH FLEXION. THE TRIAL COMPONENTS WERE REMOVED. THEN A 67.5 FEMORAL COMPONENT AND 75 TIBIAL COMPONENT WITH AN 11 CR POLYETHYLENE COMPONENT WERE CEMENTED INTO PLACE. ONCE THE CEMENT WAS HARD THE KNEE WAS TAKEN THROUGH A ROM AGAIN AND FOUND TO BE STABLE WITH NO PATELLA TILT NO EXCESSIVE ROLL BACK WITH FLEXION AND GOOD STABILITY WITH COMPLETE AND FULL EXTENSION. THE KNEE WAS IRRIGATED WITH STERILE BETADINE AND WATER FOR ABOUT 3 MINUTES. THE BLEEDERS WERE CAUTERIZED. THE ARTHROTOMY WAS REPAIRED WITH NUMBER 1 VICRYL. THE SUB CUTANEOUS LAYER WITH 2-0 VICRYL AND THE SKIN WITH JEY. THE WOUND WAS WASHED AND A STERILE DRESSING WAS APPLIED. PATIENT WAS EXTUBATED. Estimated Blood Loss -150.0 Pathology None sent Complications No immediate complications Condition Stable Disposition PACU
[2021-11-01] MEDS: HALOPERIDOL LACTATE 5 MG/ML VIAL IV PUSH ×2 (15:44→16:04)
[2021-11-01 15:49] LABS: Glucose Point of Care 159 mg/dl (65-105)
[2021-11-01] MEDS: MIDAZOLAM HCL (*CRX) 2 MG/2 ML VIAL IV PUSH (16:05)
--- NOTE | 2021-11-01 16:26 | SUR.PHASEI ---
Addendum entered by Sarah Montemayor RN 11/01/21 17:39: 1620- Dr. Black called and updated on patient's condition in recovery. Original Note: 1453- Patient waking up, oral airway removed. x-ray here attempting to get films of right knee. Patient extremely uncooperative. Will not allow x-rays to be taken due to uncooperativeness and multiple attempts to get out of bed and hit staff. 1500- Patient continues to be extremely uncooperative along with aggressive behavior, swinging at staff. Anesthesia to bedside along with extra staff to help keep patient and staff safe. Patient sedate with propofol per MACHINE GRAINER. Patient appears to be resting comfortably with no aggressive behavior noted at this time. 1545- Patient once again awake and aggressive. Yelling and attempting to get out of bed. Staff called to bedside for safety concerns of patient and staff. Propofol given per Anesthesia. 5mg IV Haldol given per Dr. Lea order. Patient sedated at this time. 1600-Patient awake, aggressive behavior noted. 5mg of IV Haldol given per Dr. Lea order. 1605-Patient continues to be extremely aggressive and combative and is a threat to the safety of himself and staff. 2mg IV Versed given per Dr. Lea order. 1700-Patient waking up, very drowsy and still very confused. Does not follow commands, is not oriented. 1720-Patient cooperative, oriented to place and person. Complaining of pain. PRN fentanyl given. Patient assisted to recliner chair by ISABELLE Vinson and Bobby. Patient appears more comfortable. Vital signs stable at this time. Patient given ice chips. 1735- Report called to 2 Masoud Leong RN. Patient calm and cooperative a time of transfer.
[2021-11-01] MEDS: fentaNYL CITRATE INJ (*CRX) 100 MCG/2 ML VIAL 25 MCG IV PUSH (17:21)
[2021-11-01] MEDS: SENNA/DOCUSATE SODIUM TABLET 2 TAB PO (18:43)
[2021-11-01] MEDS: SODIUM CHLORIDE 0.9% IV 1,000 ML 125 ML IV CONT (18:43)
[2021-11-01] MEDS: DICYCLOMINE HCL 10 MG CAPSULE PO (18:43)
[2021-11-01] MEDS: ASPIRIN 325 MG ENTERIC TABLET PO (21:25)
[2021-11-01] MEDS: PRAMIPEXOLE 0.25 MG TABLET BY MOUTH (21:25)
[2021-11-01] MEDS: oxyCODONE/ACETAMINOPHEN (*CRX) 5-325 MG TABLET 1 TABLET PO (22:26)
[2021-11-02] MEDS: diazePAM (*CRX) 5 MG TABLET PO (00:19)
[2021-11-02] MEDS: ceFAZolin 2 GM/D5W 50 ML 2 GM/50 ML BAG IVPB ×2 (02:37→12:34)
[2021-11-02 03:23] VITALS: BP 148/81; PULSE 68; RESP 18; TEMP 36.6; O2SAT 99
[2021-11-02] MEDS: oxyCODONE/ACETAMINOPHEN (*CRX) 5-325 MG TABLET 2 TABLET PO (06:02)
[2021-11-02 06:09] LABS: Basophils Percent Auto 0.2 % (0.2-1.2); Eosinophils Percent Auto 0.1 % (0-4.4); Hematocrit 38.5 % (42.0-52.0); Hemoglobin 12.4 g/dL (14.0-18.0); Immature Granulocyte Absolute 0.04 K/mm3 (0.00-0.031); Immature Granulocyte Percent A 0.3 % (0-0.5); Lymphocytes Absolute Auto 1.18 K/mm3 (0.9-3.2); Mean Corpuscular HGB Conc 32.2 g/dl (32-36); Mean Corpuscular Hemoglobin 28.8 pg (26-34); Mean Corpuscular Volume 89.3 fl (80-100); Mean Platelet Volume 9.9 fl (7.4-10.4); Monocytes Absolute Auto 1.3 K/mm3 (0.1-0.6); Monocytes Percent Auto 10.2 % (2.6-8.5); Neutrophils Absolute Auto 10.5 K/mm3 (1.3-6.7); Neutrophils Percent Auto 80.2 % (45.5-73.1); Platelet Count Result 219 k/mm3 (150-375); Red Blood Count 4.31 M/mm3 (4.6-6.20); Red Cell Distribution Width 13.4 % (11.5-14.5); White Blood Count 13.1 K/mm3 (4.5-10.0)
[2021-11-02 06:18] LABS: Anion Gap 7 mmol/L (8-16); Blood Urea Nitrogen 20 mg/dL (9-20); Calcium 8.5 mg/dL (8.4-10.2); Carbon Dioxide 26 mmol/L (22-30); Chloride 103 mmol/L (98-107); Estimated CRCL calculation 53 ml/min; Estimated Glomerular Filt Rate > 60; Glucose 128 mg/dL (65-110); Potassium 3.9 mmol/L (3.4-5.0); Sodium 136 mmol/L (137-145)
[2021-11-02 08:32] VITALS: BP 126/64; PULSE 68; RESP 16; TEMP 36.7; O2SAT 97
[2021-11-02] MEDS: SENNA/DOCUSATE SODIUM TABLET 2 TAB PO ×2 (08:37→16:34)
[2021-11-02] MEDS: hydroCHLOROthiazide 12.5 MG CAPSULE BY MOUTH (08:37)
[2021-11-02] MEDS: ASPIRIN 325 MG ENTERIC TABLET PO (08:37)
[2021-11-02] MEDS: FENOFIBRATE,MICRONIZED 48 MG TABLET PO (08:37)
[2021-11-02] MEDS: ISOSORBIDE MONONITRATE 60 MG TAB.ER.24H BY MOUTH (08:37)
[2021-11-02] MEDS: DICYCLOMINE HCL 10 MG CAPSULE PO ×3 (08:37→16:34)
[2021-11-02] MEDS: EZETIMIBE 10 MG TABLET PO (08:37)
[2021-11-02 08:38] VITALS: PULSE 68
[2021-11-02] MEDS: METOPROLOL SUCCINATE EXT REL 50 MG TABCR BY MOUTH (08:38)
[2021-11-02] MEDS: LOSARTAN POTASSIUM 50 MG TABLET PO (08:38)
[2021-11-02] MEDS: polyethylene glycoL 3350 17 GM POWD.PACK PO (08:38)
[2021-11-02] MEDS: ROSUVASTATIN 10 MG TABLET 40 MG PO (08:38)
[2021-11-02] MEDS: ACETAMINOPHEN 500 MG TABLET 1000 MG PO ×2 (08:38→16:35)
--- NOTE | 2021-11-02 09:59 | WPDANESPN ---
Anes - Prog Note Post-Op Date/Time: 11/02/21 09:59 Cardiovascular status: normal Respiratory status: normal Airway patency: baseline Mental status: baseline Post-Op hydration status: normal Vital Signs: Last Vital Signs Temp 36.7 C 11/02/21 08:32 Pulse 68 11/02/21 08:38 Resp 16 11/02/21 08:32 BP 126/64 11/02/21 08:32 Pulse Ox 97 11/02/21 08:32 O2 Del Method Room Air 11/02/21 09:08 O2 Flow Rate 2 11/01/21 17:00 Pain Score (VAS): 4 I/O: Intake & Output 11/01/21 11/02/21 11/02/21 23:59 07:59 15:59 Intake Total 900 50 240 Output Total 250 Balance 900 -200 240 Laboratory Tests 11/02/21 05:41 11/02/21 05:41 11/01/21 11/01/21 11/02/21 09:39 15:46 05:41 WBC 13.1 H RBC 4.31 L Hgb 12.4 L Hct 38.5 L MCV 89.3 MCH 28.8 MCHC 32.2 RDW 13.4 Plt Count 219 MPV 9.9 Immature Gran % (Auto) 0.3 Neut % (Auto) 80.2 H Lymph % (Auto) 9.0 L [place] % (Auto) 10.2 H Eos % (Auto) 0.1 Baso % (Auto) 0.2 Lymph # (Auto) 1.18 [place] # (Auto) 1.3 H Eos # (Auto) 0.0 Baso # (Auto) 0.0 Abs Immat Gran (auto) 0.04 H Absolute Neuts (auto) 10.5 H Absolute Nucleated RBC 0.0 Nucleated RBC % 0.0 Sodium Potassium Chloride Carbon Dioxide Anion Gap BUN Creatinine Estim Creat Clear Calc Estimated GFR Glucose POC Capillary Glucose 159 H Calcium Blood Type AB Positive Antibody Screen Negative 11/02/21 05:41 WBC RBC Hgb Hct MCV MCH MCHC RDW Plt Count MPV Immature Gran % (Auto) Neut % (Auto) Lymph % (Auto) [place] % (Auto) Eos % (Auto) Baso % (Auto) Lymph # (Auto) [place] # (Auto) Eos # (Auto) Baso # (Auto) Abs Immat Gran (auto) Absolute Neuts (auto) Absolute Nucleated RBC Nucleated RBC % Sodium 136 L Potassium 3.9 Chloride 103 Carbon Dioxide 26 Anion Gap 7 L BUN 20 Creatinine 1.10 Estim Creat Clear Calc 53 Estimated GFR > 60 Glucose 128 H POC Capillary Glucose Calcium 8.5 Blood Type Antibody Screen Post-procedural complaints: none Patient Feedback: Patient satisfied with anesthetic care.
[2021-11-02 12:00] VITALS: BP 128/66; PULSE 70; RESP 16; TEMP 36.7; O2SAT 97
[2021-11-02] MEDS: oxyCODONE/ACETAMINOPHEN (*CRX) 5-325 MG TABLET 1 TABLET PO (12:35)
[2021-11-02 14:33] VITALS: BP 120/68; PULSE 68; RESP 16; TEMP 37; O2SAT 98
--- NOTE | 2021-11-02 16:18 | PM.PNORT ---
Progress Note: A&P Assessment and Plan (1) DJD (degenerative joint disease) of knee: Qualifiers: Osteoarthritis type: primary Laterality: bilateral Qualified Code(s): M17.0 - Bilateral primary osteoarthritis of knee Code(s): M17.10 - Unilateral primary osteoarthritis, unspecified knee Status: Acute Assessment and Plan: POSTOP DAY 1 DOING WELL. OK TO DC HOME. F/U IN 3 WEEKS. Subjective Subjective Date/Time Seen: 11/02/21 16:18 POD 1 DOING WELL. HE DENIES ANY CALF PAIN OR SOB OR CP. HE IS DOING WELL WITH PT. Exam Extrem: Other: VSS AFEBRILE DRESSING DRY NV INTACT NEG HOMANS SIGN CALF SOFT NON TENDER. Objective Data Vital Signs Vital Signs: Vital Signs - 24 hr 11/01/21 16:30 11/01/21 16:45 11/01/21 17:00 Temperature Pulse Rate 64 73 56 L Respiratory Rate 18 22 H 12 Blood Pressure 146/64 H 161/95 H 169/78 H Pulse Oximetry 100 99 100 Oxygen Delivery Nasal Cannula Nasal Cannula Nasal Cannula Oxygen Flow Rate 2 2 2 11/01/21 17:15 11/01/21 17:30 11/01/21 17:50 Temperature 36.1 C L Pulse Rate 61 52 L 62 Respiratory Rate 12 12 14 Blood Pressure 161/71 H 145/63 H 170/69 H Pulse Oximetry 94 95 97 Oxygen Delivery Room Air Room Air Oxygen Flow Rate 11/01/21 18:05 11/01/21 18:35 11/01/21 19:23 Temperature 36.0 C L 36.3 C L 36.6 C Pulse Rate 56 L 60 67 Respiratory Rate 14 14 16 Blood Pressure 165/69 H 173/74 H 174/72 H Pulse Oximetry 97 99 98 Oxygen Delivery Oxygen Flow Rate 11/01/21 23:23 11/02/21 03:23 11/02/21 07:24 Temperature 36.5 C 36.6 C Pulse Rate 66 68 Respiratory Rate 16 18 Blood Pressure 170/74 H 148/81 H Pulse Oximetry 98 99 Oxygen Delivery Room Air Oxygen Flow Rate 11/02/21 08:32 11/02/21 08:38 11/02/21 09:08 Temperature 36.7 C Pulse Rate 68 68 Respiratory Rate 16 Blood Pressure 126/64 Pulse Oximetry 97 Oxygen Delivery Room Air Oxygen Flow Rate 11/02/21 08:30 11/02/21 12:00 11/02/21 14:33 Temperature 36.7 C Pulse Rate 70 Respiratory Rate 16 Blood Pressure 128/66 120/68 Pulse Oximetry 97 Oxygen Delivery Room Air Oxygen Flow Rate 11/02/21 14:33 Temperature 37.0 C Pulse Rate 68 Respiratory Rate 16 Blood Pressure Pulse Oximetry 98 Oxygen Delivery Oxygen Flow Rate Intake/Output Intake/Output: Intake & Output 10/30/21 10/31/21 11/01/21 11/02/21 23:59 23:59 23:59 23:59 Intake Total 1900 500 Output Total 250 Balance 1900 250 Meds/Results Medications: Active Medications Generic Name Dose Route Start Last Admin Trade Name Freq PRN Reason Stop Dose Admin Acetaminophen 1,000 mg 11/01/21 17:38 11/02/21 08:38 Acetaminophen 500 Mg Tablet PO 1,000 mg Q6H PRN Administration Pain Rated 1-3 Aspirin 325 mg 11/01/21 21:00 11/02/21 08:37 Aspirin 325 Mg Enteric Tablet PO 325 mg Q12HR KURT Administration Celecoxib 200 mg 11/02/21 08:00 Celecoxib 200 Mg Capsule PO BIDWM KURT Diazepam 5 mg 11/01/21 17:38 11/02/21 00:19 Diazepam (*Crx) 5 Mg Tablet PO 5 mg Q8H PRN Administration Spasms Dicyclomine HCl 10 mg 11/01/21 17:38 11/02/21 12:34 Dicyclomine Hcl 10 Mg Capsule PO 10 mg TID KURT Administration Diphenhydramine HCl 25 mg 11/01/21 17:38 Diphenhydramine Hcl Inj 50 Mg/Ml Vial IV PUSH Q6H PRN Itching Ezetimibe 10 mg 11/02/21 09:00 11/02/21 08:37 Ezetimibe 10 Mg Tablet PO 10 mg DAILY KURT Administration Fenofibrate 48 mg 11/02/21 09:00 11/02/21 08:37 Fenofibrate,Micronized 48 Mg Tablet PO 48 mg DAILY KURT Administration Hydrochlorothiazide 12.5 mg 11/02/21 09:00 11/02/21 08:37 Hydrochlorothiazide 12.5 Mg Capsule BY MOUTH 12.5 mg DAILY KURT Administration Isosorbide Mononitrate 60 mg 11/02/21 09:00 11/02/21 08:37 Isosorbide Mononitrate 60 Mg Tab.Er.24h BY MOUTH 60 mg DAILY KURT Administration Losartan Potassium 50 mg 11/02/21 09:00
--- NOTE | 2021-11-02 16:23 | PM.DS ---
DS: Admitting Diagnosis Discharge Date 11/02/21 Admitting Diagnosis RIGHT KNEE PAIN DS: Discharge Diagnosis Discharge Diagnosis (1) DJD (degenerative joint disease) of knee: Qualifiers: Osteoarthritis type: primary Laterality: bilateral Qualified Code(s): M17.0 - Bilateral primary osteoarthritis of knee Code(s): M17.10 - Unilateral primary osteoarthritis, unspecified knee Status: Acute DS: Summary Hospital Course Reason for hospitalization: R TKA Hospital Course: PATIENT WAS ADMITTED S/P RIGHT TOTAL KNEE ARTHROPLASTY FOR POSTOPERATIVE MEDICAL MANAGEMENT, PAIN CONTROL AND MOBILIZATION WITH PHYSICAL AND OCCUPATIONAL THERAPY. THE PATIENT PROGRESSED WELL WITH PT/OT. LABS AND VITALS REMAINED STABLE AND PAIN WELL CONTROLLED. THE PATIENT HAS BEEN CLEARED TO BE DISCHARGED HOME. FOLLOW UP APPOINTMENT SCHEDULED. DISCHARGE INSTRUCTIONS DISCUSSED AT LENGTH WITH THE PATIENT. MEDICATIONS REVIEWED. Status at Discharge Functional status at discharge: uses cane/walker Time Spent with Patient Time attestation: Total time spent providing and/or coordinating discharge services: Time spent: Less than 30 minutes Exam Const: Nutritional Appearance: average body habitus and well nourished DS: Data Data Completed and Pending Labs on day of discharge: Labs from last 24 hours 11/02/21 11/02/21 05:41 05:41 WBC 13.1 H RBC 4.31 L Hgb 12.4 L Hct 38.5 L MCV 89.3 MCH 28.8 MCHC 32.2 RDW 13.4 Plt Count 219 MPV 9.9 Immature Gran % (Auto) 0.3 Neut % (Auto) 80.2 H Lymph % (Auto) 9.0 L [place] % (Auto) 10.2 H Eos % (Auto) 0.1 Baso % (Auto) 0.2 Lymph # (Auto) 1.18 [place] # (Auto) 1.3 H Eos # (Auto) 0.0 Baso # (Auto) 0.0 Abs Immat Gran (auto) 0.04 H Absolute Neuts (auto) 10.5 H Absolute Nucleated RBC 0.0 Nucleated RBC % 0.0 Sodium 136 L Potassium 3.9 Chloride 103 Carbon Dioxide 26 Anion Gap 7 L BUN 20 Creatinine 1.10 Estim Creat Clear Calc 53 Estimated GFR > 60 Glucose 128 H Calcium 8.5 Discharge Plan Discharge Patient Disposition: Home, Self-Care Discharge Instructions: MARCIN CANALES M.D. [facility] [address] [place] [address] POST OPERATIVE DISCHARGE INSTRUCTIONS FOLLOWING TOTAL KNEE REPLACEMENT SURGERY ? Your dressing will be changed prior to your discharge. You will be sent home with one additional dressing to be changed on post op day 7 by the home health RN. Your milton will be removed on the 14th day after surgery and steri-strips will be placed. Please practice good hand hygiene and do not touch your incision in order to prevent infection. ? You may shower with your dressing but do not submerge in a bath tub. ? Do not drive or operate machinery until you are released by Dr. Canales. ? Do not walk without a walker for any reason until you are released by Dr. Canales. ? Continue to use your ice machine. Please use a towel or pillow case to protect your skin before applying your ice machine. ? Do NOT place a pillow under your knee. You may use a pillow from the calf down if needed. This will prevent a flexion contracture postoperatively. ? You may begin use of your CPM machine at home if you have been given one pre-operatively. DO NOT USE WHILE YOU ARE SLEEPING. ? Your first post op appointment was sent to you via mail preoperatively. If you have any questions or are unable to make your appointment, please contact our office for scheduling questions. ? Your medications have been sent to your pharmacy. You have been sent home with pain medication. We have also sent you with a stool softener as narcotics can cause constipation. Please keep this in mind during your postoperative recovery. If you are not experiencing regular bowel movements, please contact our office for further instruction. ? Please contact our office with any questions/
[2021-11-02] MEDS: PRAMIPEXOLE 0.25 MG TABLET BY MOUTH (16:34)
== END 2021-11-02 18:04 | disposition home or self-care (01) ==
LOC: ANHSURGERY 09:25 → ANH2MED 17:40
PROVIDERS: PCP Family Medicine; Visit Provider Orthopaedic Surgery
PROC: (CPT 27447; principal; 2021-11-01 12:00)
DX: M17.11 Unilateral primary osteoarthritis, right knee (principal); G89.18 Other acute postprocedural pain; I25.10 Atherosclerotic heart disease of native coronary artery without angina pectoris; E78.5 Hyperlipidemia, unspecified; E11.9 Type 2 diabetes mellitus without complications; M54.9 Dorsalgia, unspecified; G89.29 Other chronic pain; I11.9 Hypertensive heart disease without heart failure; K58.9 Irritable bowel syndrome, unspecified; Z95.1 Presence of aortocoronary bypass graft; Z95.5 Presence of coronary angioplasty implant and graft; Z87.891 Personal history of nicotine dependence; E66.9 Obesity, unspecified; Z68.32 Body mass index [BMI] 32.0-32.9, adult; Z79.82 Long term (current) use of aspirin
CPT/HCPCS: 27447; 64447; 36415; 73560; 80048; 80307; 81003; 82040; 82948; 83036; 85025; 85610; 85730; 86850; 86900; 86901; 87081; 97110; 97116; 97161; 97165; 97535; A9270; C1713; C1776; J0171; J0330; J0690; J1100; J1170; J1630; J1885; J2250; J2270; J2405; J2704; J2795; J3010; J7030; J7120

== ENCOUNTER 2021-12-29 12:03 | Outpatient (CLI) | payer MEDICARE, SELFPAY ==
[2021-12-29 13:20] LABS: SARS-CoV-2 RNA PCR Positive (Negative)
== END 2021-12-29 12:04 | disposition home or self-care (01) ==
LOC: CHSLAB 12:04
PROVIDERS: PCP Family Medicine; Visit Provider Nurse Practitioner Family
DX: U07.1 COVID-19 (principal)
CPT/HCPCS: C9803; U0003; U0005

== ENCOUNTER 2022-02-06 11:00 | Outpatient (RCR) | payer MEDICARE, SELFPAY ==
--- NOTE | 2021-11-29 11:44 | PTOPEVAL1 ---
Assessment and note entered by JT File, PT Evaluation Information Assessment Status Evaluation Diagnosis s/p R TKA Onset 11/01/21 Subjective Information patient reports he had a R TKA on 11/01/21. he reports he had some complications with surgery and after surgery. he reports he had a bad reaction to anesthesia. he reports he was very agitated from the anesthesia. he reports after surgery he was in a longterm for 6 days. he reports he went home. he reports he is coming to outpatient therapy now for his rehab. Reported Pain Level Pain Score 6: Self Report Assessment PT Clinical Summary mr. armenta is a 71 yo man who presents to skilled PT services for evaluation and treatment of R knee pain, weakness, and decreased rom following a TKA . he presents to therapy nearly 1 month post surgery. however, he has not done much exercise due to complications post op from the anesthesia. he would do well to attend skilled PT to address his objective/functional deficits and return to his prior level functional activity performance, home duties, and community/recreational activities to improve his quality of life. Plan of Care Interventions Gait Training,Intermittent Compression,Manual Therapy,Neuro Re-education,Patient/Caregiver Educati,Therapeutic Activities,Therapeutic Exercise PT Services Indicated Yes Treatment Frequency and 3x weekly for 12 visits Duration These treatments will address the objective and functional deficits as defined above. The patient will be advanced safely and appropriately in order for the patient to progress towards his/her prior level of function. Additional exercises will be introduced and as well as a comprehensive home exercise program upon discharge, if needed, ?to ensure carryover of functional gains achieved in the clinic. This treatment plan has been reviewed and agreement upon by the patient.
--- NOTE | 2021-12-08 15:05 | BUSTOPEVAL1 ---
Assessment and note entered by Marimar Horvath, SALES REPRESENTATIVE [employer] Evaluation Information Assessment Status Evaluation Diagnosis R41.3 Subjective Information Patient reported that he has noticied a significant change/difficulty in his memory since he had his surgery. He reported that he can recall information from long ago but has difficulty recalling information immediate and recently occuring. He stated that struggles recalling short term memory information is intermittent and other times he is able to recall with no difficulties. Reported Pain Level Pain Score 0: Self Report Assessment ST Clinical Summary Patient was referred by his doctor for an ST evaluation due to concerns with memory post surgery anesthesia. Patient reported that since his surgery he has struggled with recalling things that have happened recently. The patient reported that he can recall memories from the past but cannot recall recent events. He stated that the struggles come and go and sometimes he has no difficulty at all. The patient was given the SLUMS with a score of 21/30 (dementia category) along with cognitive testing that indicated deficits in immediate memory, thought organization, sorting and categorizing, functional math, functional reading, and auditory processing. The patient presented with difficulty recalling information presented and often required repetition of items to complete various tasks. Patient was aware of difficulties and stated that this was a good representation of what struggles he is seeing at home. Recommendation for ST 1x per week for 10 sessions to target cognitive-communication deficits R41.841. Plan of Care Interventions Treatment for Cognitive F Treatment Frequency and 1x/week for 10 sessions Duration These treatments will address the objective and functional deficits as defined above. The patient will be advanced safely and appropriately in order for the patient to progress towards his/her prior level of function. Additional exercises will be introduced and as well as a comprehensive home exercise program upon discharge, if needed, ?to ensure carryover of functional gains achieved in the clinic. This treatment plan has been reviewed and agreement upon by the patient.
--- NOTE | 2021-12-21 14:10 | PTOPPROG ---
Assessment and note entered by JT File, PT Evaluation Information Assessment Status Progress Diagnosis s/p R TKA Onset 11/01/21 Subjective Information patient reports he feels alright this date. he reports he still has a limp on the R knee. he reports he does exercises, and gets up and walks daily. Assessment PT Clinical Summary mr. armenta presents to skilled PT for his 10th skilled PT visit this date. he is progressed in his ambulation mechanics, knee rom, and activity tolerance. however, he continues still to have several unmet goals. he would do well to continue skilled PT to achieve his remaining goals and improve his functional abilities. Plan of Care Interventions Gait Training,Manual Therapy,Neuro Re-education, Patient/Caregiver Educati,Therapeutic Activities, Therapeutic Exercise PT Services Indicated Yes Treatment Frequency and continue skilled PT 2x weekly for 2 more visits Duration per initial POC These treatments will address the objective and functional deficits as defined above. The patient will be advanced safely and appropriately in order for the patient to progress towards his/her prior level of function. Additional exercises will be introduced and as well as a comprehensive home exercise program upon discharge, if needed, ?to ensure carryover of functional gains achieved in the clinic. This treatment plan has been reviewed and agreement upon by the patient.
--- NOTE | 2022-01-16 16:58 | PTOPEVAL1 ---
Assessment and note entered by Ruben Mcbride Evaluation Information Assessment Status Progress Diagnosis s/p R TKA Onset 11/01/21 Subjective Information patient reports he feels alright this date. he reports he still has a limp on the R knee. he reports he does exercises, and gets up and walks daily. Reported Pain Level Pain Score 5: Self Report Pain Score 2: Self Report Pain Score 2: Self Report Assessment PT Clinical Summary Pt. has been unable to attend treatment recently due to illness. He presents with improvement in sterngth and mobility, but still remains limited. Progress has likely been minimal as of recently due to inability to participate in exercise. He would benefit from continued skilled PT to improve function, strength and ROM, as well as reduce edema. Plan of Care Interventions Electrical Stimulation,Gait Training,Hot Pack/Cold Pack,Intermittent Compression,Manual Therapy, Neuro Re-education,Therapeutic Activities, Therapeutic Exercise PT Services Indicated Yes PT Services Indicated Yes Treatment Frequency and 2x/week x 6 visits Duration These treatments will address the objective and functional deficits as defined above. The patient will be advanced safely and appropriately in order for the patient to progress towards his/her prior level of function. Additional exercises will be introduced and as well as a comprehensive home exercise program upon discharge, if needed, ?to ensure carryover of functional gains achieved in the clinic. This treatment plan has been reviewed and agreement upon by the patient.
[2022-01-23 11:00] VITALS: O2SAT 60
[2022-01-30 11:00] VITALS: O2SAT 50
--- NOTE | 2022-02-06 11:24 | PTOPPROG ---
Assessment and note entered by Kallie Smith, PT Evaluation Information Assessment Status Progress Diagnosis s/p R TKA Onset 11/01/21 Subjective Information Calos Schmitz reports his right knee is doing well overall. He notes intermittent pain but overall pain has been minimal. He is able to perform all ADLs at this time. He notes limitations with walking long distances and still has to take stairs one at a time. He is using a cane for ambulation. He will see his surgeon on 02/07/22 for a follow up visit. Assessment PT Clinical Summary Calos Schmitz Sr has completed 18 physical therapy visits following a right total knee arthroplasty. He is reporting minimal pain in the right knee and is able to complete ADLs independently. He does have limitations with ambulation distance and reciprocal stair navigation. He objectively demonstrates improved right knee active and passive ROM, improved right LE strength, improved gait, and improved balance. He does still have mild deficits in left knee flexion ROM, altered gait, and mild balance deficits. His Tinetti balance score indicates a moderate fall risk. He will likely continue to benefit from skilled PT to further address these limitations. Plan of Care Interventions Gait Training,Hot Pack/Cold Pack,Intermittent Compression,Manual Therapy,Patient/Caregiver Educati,Therapeutic Activities,Therapeutic Exercise PT Services Indicated Yes Treatment Frequency and 2 times a week for 8 visits Duration These treatments will address the objective and functional deficits as defined above. The patient will be advanced safely and appropriately in order for the patient to progress towards his/her prior level of function. Additional exercises will be introduced and as well as a comprehensive home exercise program upon discharge, if needed, ?to ensure carryover of functional gains achieved in the clinic. This treatment plan has been reviewed and agreement upon by the patient.
[2022-02-13 11:00] VITALS: O2SAT 40
--- NOTE | 2022-02-28 09:42 | PCSTNOTE ---
Patient called & cancelled scheduled appointment this date.
--- NOTE | 2022-03-23 09:01 | PTOPDC ---
Assessment and note entered by Kallie Smith, PT Evaluation Information Assessment Status Discharge Diagnosis s/p R TKA Onset 11/01/21 Subjective Information Calos reports that his right knee is not painful today and hasn't had pain recently. Occasionally, he does get stiffness and muscle aching. He has been able to get back to his previous level of activity and can even climb up and down ladders without difficulty. He does not feel limited with walking and no longer uses an assistive device. He also notes his left knee has improved 90% since having his right knee replaced and he plans to hold off on a left knee replacement for awhile. He feels he is ready to be discharged from skilled PT. Reported Pain Level Pain Score 0: Self Report Assessment PT Clinical Summary Calos Schmitz has completed 26 skilled physical therapy visits following a right total knee replacement. He is reporting no difficulty with ADLs and has no right knee pain. He only complains of occasional muscle soreness and knee stiffness. He objectively demonstrates improved right knee ROM, improved right knee and hip strength to good, improved gait without an AD, improved balance, and improved functional abilities. His Tinetti score now indicates he is a low fall risk. He is being discharged to an independent home exercise program. Plan of Care Interventions Gait Training,Hot Pack/Cold Pack,Intermittent Compression,Manual Therapy,Neuro Re-education, Patient/Caregiver Educati,Therapeutic Activities, Therapeutic Exercise PT Services Indicated No Treatment Frequency and Discharge Duration
--- NOTE | 2022-09-26 14:42 | BUSTOPDC ---
Assessment and note entered by Marimar Horvath, ONLINE CONTENT DEVELOPER Evaluation Information Assessment Status Discharge Diagnosis R41.3 Subjective Information Patient reported that he has noticied a significant change/difficulty in his memory since he had his surgery. He reported that he can recall information from long ago but has difficulty recalling information immediate and recently occuring. He stated that struggles recalling short term memory information is intermittent and other times he is able to recall with no difficulties. Assessment ST Clinical Discharge Summary Patient was referred by his doctor for an ST evaluation due to concerns with memory post surgery anesthesia. Patient reported that since his surgery he has struggled with recalling things that have happened recently. The patient reported that he can recall memories from the past but cannot recall recent events. Patient completed a total of 7 ST treatment sessions for cognitive- communication deficits. Patient's last ST session was on 02-17-22. Patient has failed to return for ST treatment since that session and therefore will be discharged from .
== END 2022-02-20 14:34 | disposition home or self-care (01) ==
LOC: CHSST 11:00
PROVIDERS: PCP Family Medicine; Visit Provider Orthopaedic Surgery
DX: R41.3 Other amnesia (principal); R41.841 Cognitive communication deficit; Z96.651 Presence of right artificial knee joint
CPT/HCPCS: 92507; 96125; 97014; 97016; 97110; 97116; 97140; 97161; 97530; G0283

== ENCOUNTER 2022-08-16 10:00 | Outpatient (CLI) | payer MEDICARE, SELFPAY ==
[2022-08-16 10:17] LABS: Hemoglobin 14.5 g/dL (12.4-15.3); Mean Corpuscular HGB Conc 32.2 g/dL (32.0-36.0); Mean Corpuscular Hemoglobin 28.3 pg (27.0-31.0); Mean Corpuscular Volume 87.9 fL (78.0-102.0); Mean Platelet Volume 9.3 fl (8.7-11.0); Platelet Count Result 249 K/mm3 (150-420); Red Blood Count 5.12 M/mm3 (4.70-6.10); Red Cell Distribution Width 13.1 % (11.6-14.4); White Blood Count 6.1 K/mm3 (4.8-10.8)
[2022-08-16 10:18] LABS: Appearance Urine Clear (Clear); Bilirubin Urine Negative (Negative); Blood Urine Negative (Negative); Color Urine Yellow (Yellow); Glucose Urine UA Negative (Negative); Ketones Urine Negative (Negative); Leukocyte Esterase Ur Negative LEU/UL (Negative); Nitrate Urine Negative (Negative); Protein Urine Trace (Negative); Specific Grav Ur 1.015 (1.010-1.020); Urobilinogen Urine 0.2 mg/dL (0.2-1.0); pH Urine 6.5 (5.0-8.0)
[2022-08-16 10:23] LABS: Add Urine Microscopic? YES; Amorphous Sediment Urine Moderate; RBC Urine None seen /hpf (0-2); WBC Urine None seen /hpf (0-3)
[2022-08-16 10:24] LABS: Bacteria Urine Rare /hpf
[2022-08-16 10:29] LABS: Hemoglobin A1C 5.6 % (<5.7)
[2022-08-16 11:04] LABS: Alanine Aminotransferase 16 U/L (16-63); Albumin Level 3.5 g/dL (3.4-5.0); Alkaline Phosphatase 68 U/L (46-116); Anion Gap 11 mmol/L (8-16); Aspartate Amino Transferase 19 U/L (15-37); Bilirubin,Total 0.4 mg/dL (0.00-1.00); Blood Urea Nitrogen 17 mg/dL (7-18); Calcium 9.4 mg/dL (8.5-10.1); Carbon Dioxide 25 mmol/L (21-32); Chloride 108 mmol/L (98-108); Cholesterol 208 mg/dL (0-200); Estimated Glomerular Filt Rate > 60; Glucose 125 mg/dL (70-99); HDL Direct 49 mg/dL (40-60); LDL Cholesterol Calculated 144 mg/dL (<130); Osmolality Calculated 300 mOsm/kg (285-295); Potassium 4.4 mmol/L (3.5-5.1); Sodium 144 mmol/L (136-145); Thyroid Stimulating Hormone 1.99 uIU/mL (0.36-3.74); Total Protein 6.5 g/dL (6.4-8.2); Triglycerides 76 mg/dL (0-150)
== END 2022-08-16 10:01 | disposition home or self-care (01) ==
LOC: CHSLAB 10:02
PROVIDERS: PCP Nurse Practitioner Family; Visit Provider Nurse Practitioner Family
DX: E11.69 Type 2 diabetes mellitus with other specified complication (principal); E78.5 Hyperlipidemia, unspecified; F03.90 Unspecified dementia, unspecified severity, without behavioral disturbance, psychotic disturbance, mood disturbance, and anxiety; E11.59 Type 2 diabetes mellitus with other circulatory complications; I15.2 Hypertension secondary to endocrine disorders; Z95.5 Presence of coronary angioplasty implant and graft
CPT/HCPCS: 36415; 80053; 80061; 81001; 83036; 84443; 85027

== ENCOUNTER 2022-12-09 09:47 | Outpatient (CLI) | payer MEDICARE, MEDICAID, SELFPAY ==
--- NOTE | ~2022-12-09 | MR_ITS ---
EXAMINATION: MR brain/brain stem wo con DATE: 12/09/2022 10:28 INDICATION: Cognitive decline. Short-term memory loss. TECHNIQUE: Magnetic resonance imaging (MRI) of the brain and brainstem was performed without intraven ous contrast. Sequences included sagittal and axial T1-weighted SE, axial diffusion-weighted FS SE, a xial T2*-weighted GRE, axial T2-weighted FLAIR Propeller, and axial T2-weighted Propeller. Apparent d iffusion coefficient (ADC) maps were created. COMPARISON: CT dated 06/11/2019. FINDINGS: Brain parenchymal volume is mildly decreased, commensurate with age. There are scattered mi ld periventricular and subcortical white matter changes, most likely related to small vessel ischemic disease (microangiopathy). No acute infarction or hemorrhage. No ventriculomegaly or midline shift. Paranasal sinuses are unremarkable. Orbits are symmetric without disconjugate gaze. Midline sagittal images demonstrate a normal corpus callosum and craniovertebral junction. Structures of the posterior fossa including 7/8th cranial nerve complexes are normal. Orbits are symmetric without disconjugate gaze. No midline shift. IMPRESSION: 1. No acute intracranial abnormality. 2: Chronic age-related findings. Reviewed, dictated and finalized at location A.
== END 2022-12-09 09:48 | disposition home or self-care (01) ==
LOC: CHSIMG 09:51
PROVIDERS: PCP Family Medicine; Visit Provider Student in an Organized Health Care Education/Training Program
DX: R41.3 Other amnesia (principal)
CPT/HCPCS: 70551

== ENCOUNTER 2022-12-17 10:47 | Emergency (ER) | payer MEDICARE, MEDICAID, SELFPAY ==
[2022-12-17 10:48] VITALS: BP 232/91; PULSE 58; RESP 18; TEMP 36.9; O2SAT 98
[2022-12-17] MEDS: cloNIDine HCL 0.2 MG TABLET PO (10:58)
[2022-12-17 11:00] VITALS: BP 215/75; PULSE 52; RESP 20; TEMP 36.8; O2SAT 98
--- NOTE | 2022-12-17 11:03 | ED.GENADULT ---
HPI - General Adult General Chief complaint: Unspecified Stated complaint: High BP Time Seen by Provider: 12/17/22 10:52 Source: patient and family Mode of arrival: ambulatory Limitations: no limitations History of Present Illness HPI narrative: patient is a 72-year-old male with coronary artery disease and hypertension. Patient was at the [facility] today and had elevated blood pressure of 200s over 100s. He is asymptomatic. He was brought to the ER by his spouse for blood pressure treatment. He forgot to take his 1 medicine for blood pressure this morning before going to [facility]. Onset (ago): hour(s) Severity: moderate Pain Consistency: intermittent Relieving factors: none Exacerbating factors: none Associated symptoms: denies other symptoms Related Data Home Medications Medication Instructions Recorded Confirmed nitroglycerin 0.4 mg sublingual 0.4 mg sublingual Q5M PRN Chest 03/26/20 08/15/22 tablet (Nitrostat) Pain aspirin 81 mg tablet,delayed 81 mg PO DAILY 06/30/20 08/15/22 release Allergies Allergy/AdvReac Type Severity Reaction Status Date / Time No Known Allergies Allergy Verified 11/22/22 11:15 Review of Systems Review of Systems: All systems reviewed & are unremarkable except as noted in HPI and below Constitutional: Constitutional: Reports no additional constitutional complaints Eyes: Eyes: Reports no additional eye complaints ENT: Reports system reviewed and no additional complaints, except as documented Cardiovascular: Cardiovascular: Reports no additional cardiovascular complaints Respiratory: Respiratory: Reports no additional respiratory complaints Gastrointestinal: Gastrointestinal: Reports no additional gastrointestinal complaints Genitourinary: Genitourinary: Reports no additional male genitourinary complaints Musculoskeletal: Musculoskeletal: Reports no additional musculoskeletal complaints Integumentary/Breasts: Skin/Breast: Reports system reviewed and no additional complaints, except as docu Neurologic: Reports system reviewed and no additional complaints, except as documented Psychiatric: Psychiatric: Reports no additional psychiatric complaints Endocrine: Endocrine: Reports no additional endocrine complaints Hematologic/Lymphatic: Hematologic/Lymphatic: Reports no additional hematologic/lymphatic complaints Allergic/Immunologic: Allergic/Immunologic: Reports no additional allergic/immunologic complaints PMFSH Past Medical History Medical History ABBEY (acute kidney injury) Bilateral kidney stones CAD (coronary artery disease) Change in bowel habits Chronic back pain Confusion Dysphagia Heart disease Hydronephrosis Hyperlipidemia Hypertension IBS (irritable bowel syndrome) Kidney stones Left ureteral stone Nicotine dependence Shoulder pain Type 2 diabetes mellitus Unexplained weight loss Surgical History Surgical History H/O lithotripsy History of coronary artery stent placement History of heart artery stent S/P CABG x 5 Family History Family History Mother , mother of old age at age 89 Hypertension Father , father of old age at age 92 Asthma Chronic obstructive pulmonary disease Hypertension Sibling Acute myocardial infarction Congestive heart failure Hypertension Alcohol abuse Social History Social History Smoking packs per day: 2.5 Smoking cigarettes per day: 50.0 Years smoked: 20 Smoking pack-years: 50.00 Smoking status: Former smoker Tobacco type: cigarettes Second hand tobacco smoke exposure: No Smoking end date: 03/19/04 Additional smoking assessment comments: PT DENIES ALL FORMS OF TOBACCO USE Alcohol intake: never Alcohol use details: does not use alcohol Substa
[2022-12-17] MEDS: amLODIPine BESYLATE 5 MG TABLET PO (11:50)
[2022-12-17 12:31] VITALS: BP 171/70; PULSE 56; RESP 20; TEMP 36.8; O2SAT 99
[2022-12-17 12:32] VITALS: BP 151/71; PULSE 54; RESP 20; TEMP 36.7; O2SAT 99
== END 2022-12-17 12:37 | disposition home or self-care (01) ==
PROVIDERS: Emergency Provider Emergency Medicine; PCP Family Medicine
DX: I11.9 Hypertensive heart disease without heart failure (principal); I25.10 Atherosclerotic heart disease of native coronary artery without angina pectoris; Z79.82 Long term (current) use of aspirin; E78.5 Hyperlipidemia, unspecified; E11.9 Type 2 diabetes mellitus without complications; Z95.1 Presence of aortocoronary bypass graft; Z95.5 Presence of coronary angioplasty implant and graft; Z87.891 Personal history of nicotine dependence
CPT/HCPCS: 99283; A9270

== ENCOUNTER 2022-12-26 08:31 | Outpatient (CLI) | payer MEDICARE, MEDICAID, SELFPAY ==
[2022-12-26 09:52] LABS: Cholesterol 166 mg/dL (0-200); HDL Direct 47 mg/dL (40-60); LDL Cholesterol Calculated 102 mg/dL (<130); Triglycerides 87 mg/dL (0-150); Vitamin B12 243 pg/mL (193-986)
== END 2022-12-26 08:32 | disposition home or self-care (01) ==
LOC: CHSLAB 08:34
PROVIDERS: Nurse Practitioner Family; PCP Family Medicine; Visit Provider Student in an Organized Health Care Education/Training Program
DX: R41.3 Other amnesia (principal); E78.5 Hyperlipidemia, unspecified; E11.69 Type 2 diabetes mellitus with other specified complication
CPT/HCPCS: 36415; 80061; 82607; 82746

== ENCOUNTER 2023-11-15 10:38 | Emergency (ER) | payer MEDICARE, MEDICAID, SELFPAY ==
[2023-11-15] VITALS (20 sets, daily range): BP systolic 164–186; BP diastolic 63–88; PULSE 45–74; RESP 14–26; TEMP 37.1; O2SAT 94–100
--- NOTE | ~2023-11-15 | CT_ITS ---
Clinical Indication: Pulmonary embolus CT Scan of the Chest and Abdomen with Contrast: Technique: Contiguous sections were acquired throughout the chest and abdomen after intravenous admin istration of 100 cc of Omnipaque 350. Dose reduction technique was used on this scan by utilizing aut omated exposure control and iterative reconstruction technique. The dose-length product (DLP) was 776 .39 mGy-cm. COMPARISON: 05/02/2020 Findings: There is no evidence of any significant mediastinal, hilar or axillary lymphadenopathy. There is no f illing defect in the pulmonary arterial tree to suggest pulmonary embolus. There is no evidence of ao rtic aneurysm. There is no evidence of pleural or pericardial effusion. The lungs are clear. No pulmonary nodules or infiltrates are noted. Small calcified gallstone present. Liver, spleen, pancreas, and adrenal glands are unremarkable. 8 mm nonobstructing right renal stone present. Punctate nonobstructing left renal stone present. There ar e atherosclerotic calcifications of the aorta. No lymphadenopathy is seen. Visualized bowel loops are unremarkable. No ascites. Impression: No evidence of pulmonary embolus, aortic dissection, or aortic aneurysm. Clear lungs. Nonobstructing nephrolithiasis, as above. Cholelithiasis. Reviewed, dictated and finalized at location . Impression: No evidence of pulmonary embolus, aortic dissection, or aortic aneurysm. Clear lungs. Nonobstructing nephrolithiasis, as above. Cholelithiasis.
--- NOTE | 2023-11-15 10:45 | ECG_ITS ---
Test Date: 2023-11-15 10:48:50 Measurements Intervals [place] Rate: 55 P: 15 UT: 222 QRS: 50 QRSD: 132 T: -22 QT: 420 QTc: 404 Interpretive Statements SINUS BRADYCARDIA WITH SINUS ARRHYTHMIA WITH FIRST DEGREE AV BLOCK INTRAVENTRICULAR CONDUCTION DELAY [130+ ms QRS DURATION] INFERIOR MYOCARDIAL INFARCTION , OF INDETERMINATE AGE [40+ ms Q WAVE AND/OR ST/T ABNORMALITY IN II/aVF] ABNORMAL ECG No previous ECG available for comparison Electronically Signed On 11-15-2023 13:33:27 CDT by Ruben Padilla M.D.
[2023-11-15] MEDS: SODIUM CHLORIDE 0.9% IV 1,000 ML 999 ML IV CONT (11:10)
[2023-11-15 11:33] LABS: Hematocrit 37.7 % (37.0-46.0); Hemoglobin 12.6 g/dL (12.4-15.3); Mean Corpuscular HGB Conc 33.4 g/dL (32-36); Mean Corpuscular Hemoglobin 29.7 pg (27.0-31.0); Mean Corpuscular Volume 88.9 fL (78.0-102.0); Platelet Count Result 188 K/mm3 (150-420); Red Blood Count 4.24 M/mm3 (4.70-6.10); Red Cell Distribution Width 13.3 % (11.6-14.4); White Blood Count 4.7 K/mm3 (4.8-10.8)
[2023-11-15 11:43] LABS: Add Urine Microscopic? NO; Appearance Urine Clear (Clear); Bilirubin Urine Negative (Negative); Blood Urine Negative (Negative); Color Urine Light Yellow (Yellow); Glucose Urine UA Negative (Negative); Ketones Urine Negative (Negative); Leukocyte Esterase Ur Negative LEU/UL (Negative); Nitrate Urine Negative (Negative); Protein Urine Negative (Negative); Urobilinogen Urine 0.2 mg/dL (0.2-1.0); pH Urine 6.5 (5.0-8.0)
[2023-11-15 11:48] LABS: D Dimer 0.57 mg/L (0.19-0.50)
[2023-11-15] MEDS: KETOROLAC 30 MG/ML VIAL (*BKC) IV PUSH (11:51)
[2023-11-15 11:52] LABS: Band Neutrophils Percent 0 % (0-6); Lymphocytes Absolute Manual 0.65 K/mm3 (1.1-4.5); Lymphocytes Percent Manual 14 % (18-44); Monocytes Absolute Manual 0.56 K/mm3 (0.1-0.90); Monocytes Percent Manual 12 % (3-9); Neutrophils Absolute Manual 3.47 K/mm3 (1.3-6.7); Neutrophils Percent Manual 74 % (46-73); Platelet Estimate Adequate (Adequate); Total Cells Counted 100
[2023-11-15 11:57] LABS: Alanine Aminotransferase 6 U/L (16-63); Albumin Level 3.4 g/dL (3.4-5.0); Alkaline Phosphatase 54 U/L (46-116); Anion Gap 7 mmol/L (4-12); Aspartate Amino Transferase 11 U/L (15-37); Bilirubin,Total 0.5 mg/dL (0.00-1.00); Blood Urea Nitrogen 27 mg/dL (7-18); CRP < 0.5 mg/dL (0.0-0.9); Calcium 9.1 mg/dL (8.5-10.1); Carbon Dioxide 29 mmol/L (21-32); Chloride 103 mmol/L (98-108); Creatine Kinase 69 U/L (39-308); Estimated CRCL calculation 30 ml/min; Estimated Glomerular Filt Rate 40; Glucose 119 mg/dL (70-99); Osmolality Calculated 294 mOsm/kg (285-295); Potassium 3.3 mmol/L (3.5-5.1); Sodium 139 mmol/L (136-145); Total Protein 6.5 g/dL (6.4-8.2); Troponin I 24.2 ng/L (0.00-60.4)
[2023-11-15 11:58] LABS: NT Pro B Type Natriuretic Pept 450 pg/mL (0-125)
[2023-11-15 12:19] LABS: SARS-CoV-2 RNA PCR Positive (Negative)
[2023-11-15 12:20] LABS: Influenza A QL RT-PCR Negative (Negative); Influenza B QL RT-PCR Negative (Negative); RSV RNA, RT-PCR Negative (Negative)
--- NOTE | 2023-11-15 13:19 | ED.WEAKNESS ---
HPI - Weakness General Chief complaint: Weakness Stated complaint: weakness Source: patient and family Mode of arrival: wheelchair Limitations: no limitations History of Present Illness HPI Narrative: this is a 73-year-old male brought in by his with some weakness and low back pain patient apparently 1 was initiated and fell and was found by his after he has been there for about 4 to 5 hours. Patient currently complains of mid and low back pain with some weakness no shortness of breath no fevers chills no chest pain no nausea vomiting no abdominal pain. Patient has a history of coronary disease hypertension hyperlipidemia. MD Complaint: generalized weakness Onset (ago): day(s) Duration: constant Location: generalized Severity: mild Related Data Home Medications Medication Instructions Recorded Confirmed nitroglycerin 0.4 mg sublingual 0.4 mg sublingual Q5M PRN Chest 03/26/20 12/17/22 tablet (Nitrostat) Pain aspirin 81 mg tablet,delayed 81 mg PO DAILY 06/30/20 12/17/22 release Allergies Allergy/AdvReac Type Severity Reaction Status Date / Time No Known Allergies Allergy Verified 11/15/23 10:55 Review of Systems Review of Systems: All systems reviewed & are unremarkable except as noted in HPI and below PMFSH Past Medical History Medical History ABBEY (acute kidney injury) Bilateral kidney stones CAD (coronary artery disease) Change in bowel habits Chronic back pain Confusion Dysphagia Heart disease Hydronephrosis Hyperlipidemia Hypertension IBS (irritable bowel syndrome) Kidney stones Left ureteral stone Nicotine dependence REM behavioral disorder Shoulder pain Type 2 diabetes mellitus Unexplained weight loss Surgical History Surgical History H/O lithotripsy History of coronary artery stent placement History of heart artery stent S/P CABG x 5 Family History Family History Mother , mother of old age at age 89 Hypertension Father , father of old age at age 92 Asthma Chronic obstructive pulmonary disease Hypertension Sibling Acute myocardial infarction Congestive heart failure Hypertension Alcohol abuse Social History Social History Smoking packs per day: 2.5 Smoking cigarettes per day: 50.0 Years smoked: 20 Smoking pack-years: 50.00 Smoking status: Former smoker Tobacco type: cigarettes Second hand tobacco smoke exposure: No Smoking end date: 03/19/04 Additional smoking assessment comments: PT DENIES ALL FORMS OF TOBACCO USE Alcohol intake: never Alcohol use details: does not use alcohol Substance use: never Substance use type: does not use Living arrangements: with family Additional living arrangements comments: Lives with his , Shannan and dogs that he has rescued. 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 Troponins were negative BNP was 450 white blood cell count 4.7 CK was within normal limits and the rest of his blood counts were within normal limits. Patient did receive IV fluids and IV Toradol for pain. Patient is positive for COVID. Vital Signs Vital signs: Vital Signs Temperature 37.1 C 11/15/23 10:40 Pulse Rate 63 11/15/23 10:40 Respiratory Rate 16 11/15/23 10:40 Blood Pressure 186/80 H 11/15/23 10:40 Pu
--- NOTE | 2023-11-21 14:41 | PC.NURSE ---
BLOOD CULTURES FINAL. NO GROWTH ANAEROBIC OR AEROBIC.
== END 2023-11-15 13:27 | disposition home or self-care (01) ==
PROVIDERS: Emergency Provider Emergency Medicine
DX: U07.1 COVID-19 (principal); M54.50 Low back pain, unspecified; I25.10 Atherosclerotic heart disease of native coronary artery without angina pectoris; I10 Essential (primary) hypertension; E78.5 Hyperlipidemia, unspecified; E11.9 Type 2 diabetes mellitus without complications; I51.9 Heart disease, unspecified; Z87.891 Personal history of nicotine dependence
CPT/HCPCS: 36415; 71275; 74160; 80053; 81003; 82550; 83605; 83880; 84484; 85025; 85380; 86140; 87040; 87637; 93005; 96361; 96374; 99284; J1885; J7030; Q9967

== ENCOUNTER 2024-01-30 11:09 | Outpatient (CLI) | payer MEDICARE, SELFPAY ==
[2024-01-30 11:28] LABS: Basophils Absolute Auto 0.05 K/mm3 (0.00-0.10); Basophils Percent Auto 0.6 % (0.0-1.0); Eosinophils Absolute Auto 0.21 K/mm3 (0.02-0.50); Eosinophils Percent Auto 2.6 % (1.0-6.0); Hematocrit 40.7 % (37.0-46.0); Hemoglobin 13.7 g/dL (12.4-15.3); Immature Granulocyte Absolute 0.04 K/mm3 (0.00-0.00); Immature Granulocyte Percent A 0.5 % (0.0-0.0); Lymphocytes Absolute Auto 1.92 K/mm3 (1.10-4.50); Lymphocytes Percent Auto 23.8 % (18.0-42.0); Mean Corpuscular HGB Conc 33.7 g/dL (32-36); Mean Corpuscular Hemoglobin 29.3 pg (27.0-31.0); Mean Corpuscular Volume 87.2 fL (78.0-102.0); Mean Platelet Volume 9.1 fl (8.7-11.0); Monocytes Absolute Auto 0.53 K/mm3 (0.10-0.90); Monocytes Percent Auto 6.6 % (2.0-11.0); Neutrophils Absolute Auto 5.31 K/mm3 (1.70-7.20); Neutrophils Percent Auto 65.9 % (50.0-70.0); Platelet Count Result 246 K/mm3 (150-420); Red Blood Count 4.67 M/mm3 (4.70-6.10); Red Cell Distribution Width 13.4 % (11.6-14.4); White Blood Count 8.1 K/mm3 (4.8-10.8)
[2024-01-30 11:54] LABS: Creatinine Urine 105.15 mg/dL (40-278); MALB Creatinine Ratio 12.3 mg/g (0-30); Microalbumin Urine Random < 13.0 mg/L
[2024-01-30 11:57] LABS: Hemoglobin A1C 5.2 % (<5.7)
[2024-01-30 12:05] LABS: Cholesterol 179 mg/dL (0-200); HDL Direct 56 mg/dL (40-60); LDL Cholesterol Calculated 107 mg/dL (<130); Triglycerides 81 mg/dL (0-150)
[2024-01-30 12:10] LABS: CRP < 0.5 mg/dL (0.0-0.9)
[2024-01-30 13:40] LABS: Occult Blood Negative (Negative)
[2024-01-30 13:51] LABS: Toxigenic C. Diff NEGATIVE (NEGATIVE)
== END 2024-01-30 11:10 | disposition home or self-care (01) ==
LOC: CHSLAB 11:10
PROVIDERS: PCP Family Medicine; Visit Provider Family Medicine
DX: E11.9 Type 2 diabetes mellitus without complications (principal); K52.9 Noninfective gastroenteritis and colitis, unspecified
CPT/HCPCS: 36415; 80061; 82043; 82272; 82653; 83036; 83993; 85025; 86140; 87045; 87427; 87449; 87493

== ENCOUNTER 2024-03-07 14:09 | Outpatient (CLI) | payer MEDICARE, MEDICAID, SELFPAY ==
--- NOTE | ~2024-03-07 | MR_ITS ---
EXAMINATION: MR brain/brain stem wo con DATE: 03/07/2024 14:44 INDICATION: Unspecified dementia, unspecified severity. Dizziness. TECHNIQUE: Magnetic resonance imaging (MRI) of the brain and brainstem was performed without intraven ous contrast. 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 There are scattered areas of nonspecific increa sed T2-weighted signal intensity in the cerebral white matter, which is within normal limits for the patient's age. There is no intracranial hemorrhage, acute infarction, or abnormal intracranial mass l esion. The ventricles are normal in size. There is a mucous retention cyst in right maxillary sinus. The orbits are normal. The mastoid air cells are normal. IMPRESSION: 1. Old infarct in left cerebellum. Reviewed, dictated and finalized at location A. ER FILLER
== END 2024-03-07 14:10 | disposition home or self-care (01) ==
PROVIDERS: PCP Family Medicine; Visit Provider Psychiatry & Neurology Neurology
DX: F03.90 Unspecified dementia, unspecified severity, without behavioral disturbance, psychotic disturbance, mood disturbance, and anxiety (principal); G47.52 REM sleep behavior disorder
CPT/HCPCS: 70551

== ENCOUNTER 2024-08-02 07:21 | Outpatient (CLI) | payer MEDICARE, SELFPAY ==
--- NOTE | ~2024-08-02 | MR_ITS ---
EXAMINATION: MR brain/brain stem wo con DATE: 08/02/2024 08:04 INDICATION: One month of dizziness and giddiness TECHNIQUE: Magnetic resonance imaging (MRI) of the brain and brainstem was performed without intraven ous contrast. Sequences included sagittal and axial T1-weighted SE, axial diffusion-weighted FS SE, a xial T2*-weighted GRE, axial T2-weighted FLAIR, and axial T2-weighted FSE. Apparent diffusion coeffic ient (ADC) maps were created. COMPARISON: 03/07/2024 and 12/09/2022 FINDINGS: There are no areas of restricted diffusion to suggest acute infarction. Unchanged small old infarct i n the left cerebellar hemisphere. No intracranial hemorrhage or abnormal intracranial mass lesion. Th ere are scattered areas of nonspecific increased T2-weighted signal intensity in the cerebral white m atter, predominantly involving the deep and periventricular white matter. Single chronic small focus of susceptibility artifact along a sulcus in the right parietal lobe consistent with minimal amount o f old blood products typically seen in setting of chronic microhemorrhage related to hypertension. Th ere are no intraparenchymal signal abnormalities seen on the other pulse sequences. The ventricles ar e symmetric and normal in size. There are no abnormal extra-axial fluid collections. Flow voids are s een in the cerebral arteries on the T2-weighted sequences consistent with their expected patency. Mil d mucosal thickening bilateral ethmoid sinuses. Unchanged small mucous retention cyst in the left max illary sinus. Visualized orbits and soft tissues are unremarkable. IMPRESSION: 1. 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 No acute intracranial process. Reviewed, dictated and finalized at location A.
--- OUTSIDE RECORDS SUMMARY | 2024-08-02 07:27 | XMS_ITS | Referral Summary ---
Author Organization [facility] Address [address] [place] [address] Care Team Providers Care Real Time Operator Name Role Phone Elisa Brar NP Primary Care Provide r Allergies No known active allergies Medications dicyclomine (BENTYL) 10 mg capsule Take 1 capsule (10 mg total) by mouth 3 (three) times a day Active exenatide (BYETTA) 10 mcg/dose(250 mcg/mL) 2.4 mL injectionIndications :type 2 diabetes mellitus Inject 10 mcg under the skin 2 (two) times a day before breakfast and lunch 10MG BID Active montelukast (SINGULAIR) 10 mg tablet Take 1 tablet (10 mg total) by mouth daily Active aspirin 81 mg chewable tablet Take 1 tablet (81 mg total) by mouth daily 30 tablet 11 06/17/19 20 Active isosorbide mononitrate ER (IMDUR) 60 mg 24 hr tablet Take 1 tablet (60 mg total) by mouth daily 30 tablet 11 06/17/19 20 Active nitroglycerin (NITROSTAT) 0.[address] ONE TABLET UNDER THE TONGUE EVERY FIVE MINUTES FOR UP TO THREE DOSES NEEDED FOR CHEST PAIN 25 tablet 4 07/29/19 20 Active pramipexole (MIRAPEX) 0.25 mg tablet daily 08/04/19 20 Active rosuvastatin (CRESTOR) 40 mg tablet Take 1 tablet (40 mg total) by mouth daily 90 tablet 3 01/13/20 20 Active ezetimibe (ZETIA) 10 mg tablet TAKE ONE TABLET BY MOUTH DAILY 30 tablet 11 05/18/19 21 Active fenofibrate nanocrystallized (TRICOR) 48 mg tablet TAKE ONE TABLET BY MOUTH EVERY DAY 90 tablet 3 06/26/19 21 Active losartan-hydroCHLORO thiazide (HYZAAR) 100-12.5 mg per tablet Take 1 tablet by mouth daily Active memantine (NAMENDA) 10 mg tabletIndications:Mo derate to Severe Alzheimer's Type Dementia Take 1 tablet (10 mg total) by mouth 2 (two) times a day Active galantamine ER (RAZADYNE ER) 8 mg 24 hr capsule Take 1 capsule (8 mg total) by mouth daily with breakfast Active metoprolol XL (TOPROL-XL) 25 mg extended release tablet Take 1 tablet (25 mg total) by mouth daily 30 tablet 11 02/25/20 24 025 Active Active Problems Problem Noted Date Diagnosed Date Hx of CABG 02/25/2024 Weakness 06/13/2019 Severe malnutrition 06/12/2019 Occlusion of right carotid artery 07/21/2016 Stenosis of left carotid artery 07/21/2016 Obesity with body mass index 30 or greater 05/11 Increased body mass index (BMI) 07/21/2015 History of smoking 06/21/2015 Dyspnea on exertion 06/21/2015 Hyperlipidemia 01/25/2011 Vitamin D deficiency disease 01/25/2011 Cerebrovascular accident (CVA) 08/08/2010 Diabetes mellitus 08/08/2010 Assessment & Plan (02/11/2019 11:17 PM POWER DISTRIBUTOR): Hx of DM on exenatide at home. Last known A1C 5.9 in 2015. -Stopped Exenatide, LDSSI HTN (hypertension) 08/08/2010 Assessment & Plan (02/11/2019 11:23 PM POWER DISTRIBUTOR): BP labile and slightly elevated during this admission. On losartan 25, imdur 30 TID and metoprolol ER 50 daily. - Continue Losartan 25, imdur 30 TID, and Metoprolol 50 ER Sinus bradycardia 08/08/2010 Hypercholesterolemia 08/08/2010 Obstructive sleep apnea syndrome 08/02/2010 Overview (06/28/2017): Description: Obstructive Sleep Apnea Chronic coronary artery disease 08/02/2010 Overview (06/28/2017): Description: Multi-vessel Coronary Artery Stenosis Resolved Problems Problem Noted Date Diagnosed Date Resolved Date Preop cardiovascular exam 06/23/2021 Chest pain with normal EKG 02/11/2019 1 04/27/2023 Assessment & Plan (02/11/2019 11:26 PM POWER DISTRIBUTOR): Post catheterization chest pain with unchanged EKG x2 are negative troponins. The patient's chest pain is improving with aspirin and is now at a 6/10. -CTM chest pain - Repeat EKG for worsening CP Arteriosclerotic vascular disease 06/22/2015 02/25/2024 Cardiac arrhythmia 08/02/2010 Overview (06/28/2017): Description: Rhythm Disorder Atherosclerosis of coronary artery 08/02/2010 02/25/2024 Overview (06/28/2017): Description: Coronary Artery Disease Assessment & Plan (02/11/2019 11:25 PM POWER DISTRIBUTOR): Hx of CAD s/p CABG and multiple PCI. S/p GLORIA x2 to OM and AV groove circ -plavix loading 525 complete. -Ctn ASA 81 daily, plavix 75 daily, crestor 40, metop 50, fenofibrate 48 Carotid atherosclerosis 08/02/2010 12/0 11/2023 Overview (06/28/2017): Description: Carotid Atherosclerosis Immunizations Immunization Administration Dates Next Due Influenza, Unspecified 06/11/2019 Social History Tobacco Use Types Packs/Day Years Used Date Smoking Tobacco: Former Cigarettes 2 30 0 09/17/1974 - 09/17/2004 Smokeless Tobacco: Never Alcohol Use Standard Drinks/Week Comments No 0 (1 standard drink = 0.6 oz pur e alcohol) Sex and Gender Information Value Date Recorded Sex Assigned at Not on file Legal Sex Male 12:14 AM POWER DISTRIBUTOR Gender Identity Not on file Sexual Orientation Not on file Last Filed Vital Signs Vital Sign Reading Time Taken Comments Blood Pressure 112/58 02/25/2024 11:15 AM POWER DISTRIBUTOR Pulse 50 02/25/2024 11:15 AM POWER DISTRIBUTOR Temperature 36.7 C (98.1 F) 04/16/2020 2:25 PM POWER DISTRIBUTOR Respiratory Rate 20 06/17/2019 12:06 PM CDT Oxygen Saturation 96% 02/25/2024 11:15 AM POWER DISTRIBUTOR Inhaled Oxygen Concentration - - Weight 77 kg (169 lb 11.2 oz) 02/25/2024 11:15 A M POWER DISTRIBUTOR Height 172.7 cm (5' 8 ) 02/25/2024 11:15 AM POWER DISTRIBUTOR Body Mass Index 25.8 02/25/2024 11:15 AM POWER DISTRIBUTOR Plan of Treatment Not on file Medical Devices Implanted Type Area Qa Software Tester Device Identifier Shelf Expiration Date Model / Serial / Lot [employer] [id number] Stent Coronary Drug Eluting Orsiro 2.25mm 15cm - [id number] Implanted:Qty: 1 on 02/11/2019 by Stu Kennedy MD at [facility] [employer] 01/17/2020 [id number] / / [id number] [employer] [id number] System Coronary Stent Xience Cristela Everolimus L18 Mm Od2.25 Mm Rapid Exchange - [id number] Implanted:Qty: 1 on 02/11/2019 by Fransisco Conrad MD at [facility] [employer] [id number] / / [employer]ig [employer] [id number] Angio-Seal Evolution 8fr .038in Guidewire Bypass Tube Suture - [id number] Implanted:Qty: 1 on 02/11/2019 by Fransisco Conrad MD at [facility] [employer] 11/17/2019 [id number] / / [id number] Procedures Procedure Name Priority Date/Time Associated Diagnosis Comments POCT LIPID PANEL Routine 02/25/2024 2:56 PM POWER DISTRIBUTOR Mixed hyperlipidemia HEMOGLOBIN A1C Routine 06/12/2019 5:42 AM CDT EGFR Routine 02/03/2019 11:10 AM POWER DISTRIBUTOR History of percutaneous coronary intervention from Last 3 Months or Most Recently Relevant to Health Maintenance Results * POCT lipid panel (02/25/2024 2:56 PM POWER DISTRIBUTOR) Cholesterol, POC 106 mg/dL Comment:GLU = 124 HDL, POC 44 mg/dL Triglycerides, POC 72 mg/dL LDL Cholesterol POC 47 mg/dL Chol/HDL Ratio, POC 1.1 Non-HDL Cholesterol, POC 62 mg/dL Cholesterol Total, POC 106 mg/dL Capillary blood 02/25/2024 2 :56 PM POWER DISTRIBUTOR Angelina Catherine MD POINT OF CARE TEST O RDERABLES Final Result * (ABNORMAL) Hemoglobin A1c (06/12/2019 5:42 AM CDT) Hgb A1C 6.4(H) 4.0 - 5.6 % [facility] Estimated Average Glucose 137 mg/dL [facility] Comment: The ADA recommends reporting an estimated Average Glucose (eAG) with all Hemoglobin A1c results using the equation derived from a study of 507 normal and diabetic adults. Minority populations were underrepresented and children were not included. (Diabetes Care 31:3358-9033, 2008). The eAG is not equivalent to a fasting glucose. Blood specimen (specimen) 06/12/2019 5:42 AM CDT 06/12/2019 6:49 AM CDT Anthony Chavez MD PhD LAB BLOOD ORDERABLES Fin al Result [facility] Department [place] [address] * eGFR (02/03/2019 11:10 AM POWER DISTRIBUTOR) eGFR 70 mL/min/1.7 3 m2 [facility] Comment: Interpretive Data Reference Interval Normal >/= 90 mL/min/1.73m2 Mildly decreased* 60 - 89 mL/min/1.73m2 Mildly to moderately decreased 45 - 59 mL/min/1.73m2 Moderately to severely decreased 30 - 44 mL/min/1.73m2 Severely decreased 15 - 29 mL/min/1.73m2 Kidney Failure < 15 mL/min/1.73m2 *Relative to young adult level If -Indonesian multiply value by 1.16. Estimated glomerular filtration rate is determined by the CKD-EPI equation recommended by the National Kidney Foundation (KDIGO 2012 Clinical Practice Guideline for the Evaluation and Management of Chronic Kidney Disease. Kidney Intnl Suppl Mar 2012;3:1). The CKD-EPI equation should not be used for patients with unstable renal function and has not been validated in children and those over 70. Current interpretive data was last reviewed 2015. Blood specimen (specimen) 02/03/2019 11:10 AM POWER DISTRIBUTOR 02/03/2019 11:38 AM POWER DISTRIBUTOR us Chan Dhaliwal MD LAB BLOOD ORDERABLES Final Re sult [facility] Department [place] [address] from Last 3 Months or Most Recently Relevant to Health Maintenance Insurance MEDICARE IDPA IDPA MEDICARE [facility] Address: [address] [address] [place] [address] UHC MEDICARE ADVANTAGE [facility] Address: [address] [address] [place] [address] IDPA Advance Directives For more information, please contact: [phone] * Full Code (Latest Code Status on File) Date Activated Date Inactivated Comments 06/11/2019 9:01 PM 06/17/2019 5:15 PM * Full Code Date Activated Date Inactivated Comments 02/11/2019 10:03 PM 02/12/2019 10:56 PM * Full Code Date Activated Date Inactivated Comments 02/11/2019 1:09 PM 02/11/2019 10:02 PM Care Teams Real Time Operator Relationship Specialty Start Date End Date Elisa Brar NP [address] [place] [address] PCP - General Nurse Practitioner 06/22/21
--- OUTSIDE RECORDS SUMMARY | 2024-08-02 07:27 | XMS_ITS | Clinical Summary ---
Author Organization [facility] Address [address] [place] [address] Care Team Providers Care Unit Aide Tech Name Role Phone Elisa Brar NP Primary [...] 08/08/2010 Assessment & Plan (02/11/2019 11:17 PM GLOBAL CATEGORY MANAGER): Hx of DM on exenatide at home. Last known A1C 5.9 in 2015. -Stopped Exenatide, LDSSI HTN (hypertension) 08/08/2010 Assessment & Plan (02/11/2019 11:23 PM GLOBAL CATEGORY MANAGER): BP labile and slightly elevated during this [...] 04/27/2023 Assessment & Plan (02/11/2019 11:26 PM GLOBAL CATEGORY MANAGER): Post catheterization chest pain with unchanged EKG [...] Disease Assessment & Plan (02/11/2019 11:25 PM GLOBAL CATEGORY MANAGER): Hx of CAD s/p CABG and multiple PCI. S/p GLORIA x2 to OM and AV groove circ -plavix loading 525 complete. -Ctn ASA 81 daily, plavix 75 daily, crestor 40, metop 50, fenofibrate 48 Carotid atherosclerosis 08/02/2010 12/0 11/2023 Overview (06/28/2017): Description: Carotid Atherosclerosis Immunizations Immunization Administration Dates Next Due Influenza, Unspecified 06/11/2019 Surgical History Surgery Date Site/Laterality Comments OTHER SURGICAL HISTORY cardiac stents x5 CORONARY ANGIOPLASTY CARDIAC CATHETERIZATION CORONARY ARTERY BYPASS GRAFT Medical History Medical History Date Comments Chronic coronary artery disease Coronary artery disease Myocardial infarction (HCC) 2006 Myoc ardial infarction Hx Other Medical Carotid stenosi s; Comments: MPB 07/08/2015 - Asthma Asthma Depression Depression Hypertension Hypertension Hx Other Medical Hyperlipidemia; Comments: MPB 07/08/2015 - Hyperlipidemia Carotid artery disease KAILEY on CPAP Stroke (HCC) Diabetes mellitus (HCC) Family History Medical History Relation Name Comments Coronary artery disease Brother 3 Edu nary artery disease; Cancer Brother 4 Cancer; Cause o f : Cancer Cancer Brother 5 Family history of cancer - (Added by TW Conv) Hypertension Brother 6 Family history of hypertension - (Added by TW Conv) Sudden Cardiac Brother 7 Family history of sudden cardiac - (Added by TW Conv) Coronary artery disease Brother 8 Fami ly history of coronary artery disease - (Added by TW Conv) Hypertension Daughter Family history of hypertension - (Added by TW Conv) Cancer Father Family history of cancer - (Added by TW Conv) Coronary artery disease Father Fami ly history of coronary artery disease - (Added by TW Conv) Hypertension Father Family history of hypertension - (Added by TW Conv) Sudden Cardiac Father Family history of sudden cardiac - (Added by TW Conv) Cancer Mother Family history of cancer - (Added by TW Conv) Coronary artery disease Mother Fami ly history of coronary artery disease - (Added by TW Conv) Hypertension Mother Family history of hypertension - (Added by TW Conv) Stroke Mother Family history of stroke - (Added by TW Conv) Sudden Cardiac Mother Family history of sudden cardiac - (Added by TW Conv) Hypertension Son Family history of hypertension - (Added by TW Conv) Relation Name Status Comments Brother 1 Brother 2 (Age 62) Brother 3 Brother 4 Brother 5 Brother 6 Brother 7 Brother 8 Daughter Alive Father Mother Son Alive Social History Tobacco Use Types Packs/Day Years Used Date Smoking Tobacco: Former Cigarettes 2 30 0 09/17/1974 - 09/17/2004 Smokeless Tobacco: Never Alcohol Use Standard Drinks/Week Comments No 0 (1 standard drink = 0.6 oz pur e alcohol) Sex and Gender Information Value Date Recorded Sex Assigned at Not on file Legal Sex Male 12:14 AM GLOBAL CATEGORY MANAGER Gender Identity Not on file Sexual Orientation Not on file Obstetrics History Last Filed Vital Signs Vital Sign Reading Time Taken Comments Blood Pressure 112/58 02/25/2024 11:15 AM GLOBAL CATEGORY MANAGER Pulse 50 02/25/2024 11:15 AM GLOBAL CATEGORY MANAGER Temperature 36.7 C (98.1 F) 04/16/2020 2:25 PM GLOBAL CATEGORY MANAGER Respiratory Rate 20 06/17/2019 12:06 PM CDT Oxygen Saturation 96% 02/25/2024 11:15 AM GLOBAL CATEGORY MANAGER Inhaled Oxygen Concentration - - Weight 77 kg (169 lb 11.2 oz) 02/25/2024 11:15 A M GLOBAL CATEGORY MANAGER Height 172.7 cm (5' 8 ) 02/25/2024 11:15 AM GLOBAL CATEGORY MANAGER Body Mass Index 25.8 02/25/2024 11:15 AM GLOBAL CATEGORY MANAGER Plan of Treatment Health Maintenance Due Date Last Done Comments Albumin Creatinine Ratio, Urine 1950 Colon Cancer Screening-Colonoscopy 1950 Depression Screening 1950 Hepatitis C Screening 1950 Dilated Eye Exam 1950 Foot Exam 1950 DTaP/Tdap/Td Vaccine (1 - Tdap) 1960 Hepatitis B Screening 08/25/1967 Zoster Vaccine (1 of 2) 08/25/1999 Abdominal Aortic Aneurysm (A AA) Screen 2014 Well Visit 65+ 2014 Pneumococcal vaccine 65+ (2 of 2 - PPSV23) 02/20/2018 12/26/2017 Hemoglobin A1C 12/13/2019 06/12/2019 eGFR 02/04/2020 02/03/2019 Fall Risk Assessment 06/16/2020 06/17/2019 Influenza Vaccine (#1) 2023 06/11/2019 Lipid Panel 02/24/2025 02/25/2024, 04/0 09/2021, 06/12/2019, Additional history exists Medical Devices Implanted Type Area Material Handler 1St Shift Device Identifier Shelf Expiration Date Model / Serial / Lot [employer] [id number] Stent Coronary Drug Eluting Orsiro 2.25mm 15cm - [id number] Implanted:Qty: 1 on 02/11/2019 by Stu Kennedy MD at [facility] [employer] 01/17/2020 [id number] / / [id number] [employer] [id number] System Coronary Stent Xience Cristela Everolimus L18 Mm Od2.25 Mm Rapid Exchange - [id number] Implanted:Qty: 1 on 02/11/2019 by Fransisco Conrad MD at [facility] [employer] [id number] / / [employer]ig [employer] [id number] Angio-Seal Evolution 8fr .038in Guidewire Bypass Tube Suture - [id number] Implanted:Qty: 1 on 02/11/2019 by Fransisco Conrad MD at [facility] [employer] 11/17/2019 [id number] / / [id number] Procedures Procedure Name Priority Date/Time Associated Diagnosis Comments POCT LIPID PANEL Routine 02/25/2024 2:56 PM GLOBAL CATEGORY MANAGER Mixed hyperlipidemia HEMOGLOBIN A1C Routine 06/12/2019 5:42 AM CDT EGFR Routine 02/03/2019 11:10 AM GLOBAL CATEGORY MANAGER History of percutaneous coronary intervention from Last 3 Months or Most Recently Relevant to Health Maintenance Results * POCT lipid panel (02/25/2024 2:56 PM GLOBAL CATEGORY MANAGER) Cholesterol, POC 106 mg/dL Comment:GLU = 124 HDL, POC 44 mg/dL Triglycerides, POC 72 mg/dL LDL Cholesterol POC 47 mg/dL Chol/HDL Ratio, POC 1.1 Non-HDL Cholesterol, POC 62 mg/dL Cholesterol Total, POC 106 mg/dL Capillary blood 02/25/2024 2 :56 PM GLOBAL CATEGORY MANAGER us Angelina Catherine MD POINT OF CARE TEST O RDERABLES Final Result * (ABNORMAL) Hemoglobin A1c (06/12/2019 5:42 AM CDT) Hgb A1C 6.4(H) 4.0 - 5.6 % [facility]ATH Estimated Average Glucose 137 mg/dL [facility] Comment: The ADA recommends reporting an estimated Average Glucose (eAG) with all Hemoglobin A1c results using the equation derived from a study of 507 normal and diabetic adults. Minority populations were underrepresented and children were not included. (Diabetes Care 31:6346-2713, 2008). The eAG is not equivalent to a fasting glucose. Blood specimen (specimen) 06/12/2019 5:42 AM CDT 06/12/2019 6:49 AM CDT us Anthony Chavez MD PhD LAB BLOOD ORDERABLES Fin al Result [facility] Department [place] [address] * eGFR (02/03/2019 11:10 AM GLOBAL CATEGORY MANAGER) eGFR 70 mL/min/1.7 3 m2 [facility] ([place]) Comment: Interpretive Data Reference Interval Normal >/= 90 mL/min/1.73m2 Mildly decreased* 60 - 89 mL/min/1.73m2 Mildly to moderately decreased 45 - 59 mL/min/1.73m2 Moderately to severely decreased 30 - 44 mL/min/1.73m2 Severely decreased 15 - 29 mL/min/1.73m2 Kidney Failure < 15 mL/min/1.73m2 *Relative to young adult level If -Fijian multiply value by 1.16. Estimated glomerular filtration [...] 2015. Blood specimen (specimen) 02/03/2019 11:10 AM GLOBAL CATEGORY MANAGER 02/03/2019 11:38 AM GLOBAL CATEGORY MANAGER Chan Dhaliwal MD LAB BLOOD ORDERABLES Final Re sult [facility] CASTRE[facility] ([place]) 1 [facility] Department [place] [address] from Last 3 Months or Most Recently Relevant to Health Maintenance Insurance MEDICARE IDPA IDPA MEDICARE [facility] Address: [address] [address] [place] [address] [facility] RE[facility] MEDICARE Address: [address] [address] [place] [address] [facility] MEDICARE ADVANTAGE IDPA Advance Directives For more information, please contact: [phone] * Full Code (Latest Code Status on File) Date Activated Date Inactivated Comments 06/11/2019 9:01 PM 06/17/2019 5:15 PM * Full Code Date Activated Date Inactivated Comments 02/11/2019 10:03 PM 02/12/2019 10:56 PM * Full Code Date Activated Date Inactivated Comments 02/11/2019 1:09 PM 02/11/2019 10:02 PM Care Teams Unit Aide Tech Relationship Specialty Start Date End Date Elisa Brar NP [address] [place] [address] PCP - General Nurse Practitioner 06/22/21
--- OUTSIDE RECORDS SUMMARY | 2024-08-02 07:27 | XMS_ITS | Clinical Summary ---
Author Organization [facility] Address [address] [place] [address] Care Team Providers Care Risk Management Specialist Name Role Phone Unavailable Primary Care Provider Unavailabl e Social History Tobacco Use Types Packs/Day Years Used Date Smoking Tobacco: Former Sex and Gender Information Value Date Recorded Sex Assigned at Not on file Legal Sex Male 10:50 PM CDT Gender Identity Not on file Sexual Orientation Not on file Last Filed Vital Signs Vital Sign Reading Time Taken Comments Blood Pressure 150/94 01/11/2006 9:24 AM CDT Pulse 60 01/11/2006 9:24 AM CDT Regul ar Temperature - - Respiratory Rate - - Oxygen Saturation - - Inhaled Oxygen Concentration - - Weight 93 kg (205 lb) 01/11/2006 9:24 AM CDT Height 170.2 cm (5' 7 ) 01/11/2006 9:24 AM CDT Body Mass Index 32.11 01/11/2006 9:24 AM CDT Plan of Treatment Health Maintenance Due Date Last Done Comments Colorectal Cancer Screening Colonoscopy (10 Years) 1949 Hepatitis C 08/25/1967 DTaP, Tdap and Td Vaccines ( 1 - Tdap) 1968 Pneumococcal Vaccine: 50+ Ye ars (1 of 1 - PCV) 08/25/1999 Zoster Vaccines (1 of 2) 08/25/1999 COVID-19 Vaccine ( - 2023-2 5 season) 2023 RSV Immunization or 60+ Years (1 - 1-dose 75+ series) 2024 Meningococcal B Vaccine Aged Out No l onger eligible based on patient's age to complete this topic Meningococcal Vaccine Aged Out No kalina nguyen eligible based on patient's age to complete this topic RSV Immunizations Under 20 Months Aged Out No longer eligible based on patient's age to complete this topic
== END 2024-08-02 07:22 | disposition home or self-care (01) ==
LOC: CHSIMG 07:25
PROVIDERS: PCP Nurse Practitioner Family; Visit Provider Nurse Practitioner Family
DX: R42 Dizziness and giddiness (principal); I63.9 Cerebral infarction, unspecified
CPT/HCPCS: 70551

== ENCOUNTER 2025-02-10 10:29 | Outpatient (CLI) | payer MEDICARE, SELFPAY ==
[2025-02-10 10:45] LABS: Hematocrit 40.7 % (37.0-46.0); Hemoglobin 13.1 g/dL (12.4-15.3); Immature Granulocyte Percent A 0.7 % (0.0-0.0); Lymphocytes Absolute Auto 1.34 K/mm3 (1.10-4.50); Mean Corpuscular HGB Conc 32.2 g/dL (32-36); Mean Corpuscular Hemoglobin 29.1 pg (27.0-31.0); Mean Corpuscular Volume 90.4 fL (78.0-102.0); Nucleated Red Blood Cells Absolute Auto 0.00 K/mm3 (0.00-0.00); Nucleated Red Blood Cells Perc 0.0 % (0-0.0); Platelet Count Result 251 K/mm3 (150-420); Red Blood Count 4.50 M/mm3 (4.70-6.10); White Blood Count 8.3 K/mm3 (4.8-10.8)
[2025-02-10 11:00] LABS: MALB Creatinine Ratio 7.4 mg/g (0-30)
[2025-02-10 11:04] LABS: Hemoglobin A1C 5.4 % (<5.7)
[2025-02-10 11:08] LABS: Alanine Aminotransferase 12 U/L (6-50); Albumin Level 4.3 g/dL (3.5-5.1); Alkaline Phosphatase 48 U/L (38-126); Anion Gap 9 mmol/L (4-12); Aspartate Amino Transferase 19 U/L (17-59); Bilirubin,Total 0.5 mg/dL (0.2-1.3); Blood Urea Nitrogen 21 mg/dL (9-20); Calcium 10.0 mg/dL (8.4-10.2); Carbon Dioxide 28 mmol/L (22-30); Chloride 105 mmol/L (98-107); Cholesterol 166 mg/dL (0-200); Estimated Glomerular Filt Rate 46; Glucose 113 mg/dL (65-110); HDL Direct 68 mg/dL; Osmolality Calculated 298 mOsm/kg (285-295); Potassium 4.2 mmol/L (3.4-5.0); Sodium 142 mmol/L (137-145); Total Protein 6.6 g/dL (6.3-8.2); Triglycerides 111 mg/dL (<150)
[2025-02-10 11:39] LABS: Thyroid Stimulating Hormone Reflex 2.400 uIU/mL (0.465-4.68)
--- OUTSIDE RECORDS SUMMARY | 2025-02-10 11:51 | XMS_ITS | Clinical Summary ---
Author Organization [facility] Address [address] [place] [address] Care Team Providers Care Dairy Chemist Name Role Phone Elisa Brar NP Primary [...] 08/08/2010 Assessment & Plan (02/11/2019 11:17 PM CAREER CENTER DIRECTOR): Hx of DM on exenatide at home. Last known A1C 5.9 in 2015. -Stopped Exenatide, LDSSI HTN (hypertension) 08/08/2010 Assessment & Plan (02/11/2019 11:23 PM CAREER CENTER DIRECTOR): BP labile and slightly elevated during this [...] 04/27/2023 Assessment & Plan (02/11/2019 11:26 PM CAREER CENTER DIRECTOR): Post catheterization chest pain with unchanged EKG [...] Disease Assessment & Plan (02/11/2019 11:25 PM CAREER CENTER DIRECTOR): Hx of CAD s/p CABG and multiple [...] KAILEY on CPAP Stroke (HCC) Diabetes mellitus Family History Medical History Relation Name Comments [...] on file Legal Sex Male 12:14 AM CAREER CENTER DIRECTOR Gender Identity Not on file Sexual Orientation Not on file Last Filed Vital Signs Vital Sign Reading Time Taken Comments Blood Pressure 112/58 02/25/2024 11:15 AM CAREER CENTER DIRECTOR Pulse 50 02/25/2024 11:15 AM CAREER CENTER DIRECTOR Temperature 36.7 C (98.1 F) 04/16/2020 2:25 PM CAREER CENTER DIRECTOR Respiratory Rate 20 06/17/2019 12:06 PM CDT Oxygen Saturation 96% 02/25/2024 11:15 AM CAREER CENTER DIRECTOR Inhaled Oxygen Concentration - - Weight 77 kg (169 lb 11.2 oz) 02/25/2024 11:15 A M CAREER CENTER DIRECTOR Height 172.7 cm (5' 8) 02/25/2024 11:15 AM CAREER CENTER DIRECTOR Body Mass Index 25.8 02/25/2024 11:15 AM CAREER CENTER DIRECTOR Plan of Treatment Health Maintenance Due Date [...] Pneumococcal vaccine 65+ (2 of 2 - PPSV23, PCV20, or PCV21) 02/20/2018 12/26/2017 Hemoglobin A1C 12/13/2019 06/12/2019 eGFR 02/04/2020 02/03/2019 Fall Risk Assessment 06/16/2020 06/17/2019 Influenza Vaccine (#1) 2024 06/11/2019 Lipid Panel 02/24/2025 02/25/2024, 04/0 09/2021, 06/12/2019, Additional history exists Medical Devices Implanted Type Area Supervisor Partial Denture Department Device Identifier Shelf Expiration Date Model / Serial / Lot [employer] [id number] Stent Coronary Drug Eluting Orsiro 2.25mm 15cm - [id number] Implanted:Qty: 1 on 02/11/2019 by Stu Kennedy MD at [facility] [employer] 01/17/2020 [id number] / / [id number] [employer] [id number] System Coronary Stent Xience Cristela Everolimus L18 Mm Od2.25 Mm Rapid Exchange - [id number] Implanted:Qty: 1 on 02/11/2019 by Fransisco Conrad MD at [facility] [employer] [id number] / / [employer] [id number] Angio-Seal Evolution 8fr .038in Guidewire Bypass Tube Suture - [id number] Implanted:Qty: 1 on 02/11/2019 by Fransisco Conrad MD at [facility] [employer] 11/17/2019 [id number] / / [id number] Procedures Procedure Name Priority Date/Time Associated Diagnosis Comments POCT LIPID PANEL Routine 02/25/2024 2:56 PM CAREER CENTER DIRECTOR Mixed hyperlipidemia HEMOGLOBIN A1C Routine 06/12/2019 5:42 AM CDT EGFR Routine 02/03/2019 11:10 AM CAREER CENTER DIRECTOR History of percutaneous coronary intervention from Last 3 Months or Most Recently Relevant to Health Maintenance Results * POCT lipid panel (02/25/2024 2:56 PM CAREER CENTER DIRECTOR) Cholesterol, POC 106 mg/dL Comment:GLU = 124 HDL, POC 44 mg/dL Triglycerides, POC 72 mg/dL LDL Cholesterol POC 47 mg/dL Chol/HDL Ratio, POC 1.1 Non-HDL Cholesterol, POC 62 mg/dL Cholesterol Total, POC 106 mg/dL Capillary blood 02/25/2024 2 :56 PM CAREER CENTER DIRECTOR us Angelina Catherine MD POINT OF CARE TEST O RDERABLES Final Result * (ABNORMAL) Hemoglobin A1c (06/12/2019 5:42 AM CDT) Hgb A1C 6.4(H) 4.0 - 5.6 % [facility] HEATH Estimated Average Glucose 137 mg/dL [facility] Comment: The ADA recommends reporting an estimated Average Glucose (eAG) with all Hemoglobin A1c results using the equation derived from a study of 507 normal and diabetic adults. Minority populations were underrepresented and children were not included. (Diabetes Care 31:7724-7156, 2008). The eAG is not equivalent to a fasting glucose. Blood specimen (specimen) 06/12/2019 5:42 AM CDT 06/12/2019 6:49 AM CDT us Anthony Chavez MD PhD LAB BLOOD ORDERABLES Fin al Result [facility] Department [place] [address] * eGFR (02/03/2019 11:10 AM CAREER CENTER DIRECTOR) eGFR 70 mL/min/1.7 3 m2 [facility]RE[facility] ([place]) Comment: Interpretive Data Reference Interval Normal >/= 90 mL/min/1.73m2 Mildly decreased* 60 - 89 mL/min/1.73m2 Mildly to moderately decreased 45 - 59 mL/min/1.73m2 Moderately to severely decreased 30 - 44 mL/min/1.73m2 Severely decreased 15 - 29 mL/min/1.73m2 Kidney Failure < 15 mL/min/1.73m2 *Relative to young adult level If -Cypriot multiply value by 1.16. Estimated glomerular filtration [...] 2015. Blood specimen (specimen) 02/03/2019 11:10 AM CAREER CENTER DIRECTOR 02/03/2019 11:38 AM CAREER CENTER DIRECTOR Chan Dhaliwal MD LAB BLOOD ORDERABLES Final Re sult [facility] ([place]) 1 [facility] Department [place] [address] from Last 3 Months or Most Recently Relevant to Health Maintenance Insurance MEDICARE IDPA IDPA MEDICARE [facility] HMO REF [facility] MEDICARE ADVANTAGE IDPA Advance Directives For more information, please contact: [phone] * Full Code (Latest Code Status on File) Date Activated Date Inactivated Comments 06/11/2019 9:01 PM 06/17/2019 5:15 PM * Full Code Date Activated Date Inactivated Comments 02/11/2019 10:03 PM 02/12/2019 10:56 PM * Full Code Date Activated Date Inactivated Comments 02/11/2019 1:09 PM 02/11/2019 10:02 PM Care Teams Dairy Chemist Relationship Specialty Start Date End Date Elisa Brar NP [address] [place] [address] PCP - General Nurse Practitioner 06/22/21
--- OUTSIDE RECORDS SUMMARY | 2025-02-10 11:51 | XMS_ITS | Clinical Summary ---
Author Organization [facility] Address [address] [place] [id number] Care Team Providers Care Button Decorating Machine Operator Name Role Phone Unavailable Primary Care Provider [...] 9:24 AM CDT Height 170.2 cm (5' 7) 01/11/2006 9:24 AM CDT Body Mass Index 32.11 01/11/2006 9:24 AM CDT Plan of Treatment Health Maintenance Due Date Last Done Comments Colorectal Cancer Screening Colonoscopy (10 Years) 1950 Hepatitis C 08/25/1967 DTaP, Tdap and Td Vaccines ( 1 - Tdap) 1968 Pneumococcal Vaccine: 50+ Ye ars (1 of 1 - PCV) 08/25/1999 Zoster Vaccines (1 of 2) 08/25/1999 RSV Immunization or 60+ Years (1 - 1-dose 75+ series) 2024 COVID-19 Vaccine ( - 2024-2 6 season) 2024 Influenza Adult (#1) 2024 Hepatitis A Vaccines Aged Out No long er eligible based on patient's age to complete this topic Meningococcal B Vaccine Aged Out No l onger eligible based on patient's age to complete this topic Meningococcal Vaccine Aged Out No kalina nguyen eligible based on patient's age to complete this topic RSV Immunizations Under 20 Months Aged Out No longer eligible based on patient's age to complete this topic
--- OUTSIDE RECORDS SUMMARY | 2025-02-10 11:51 | XMS_ITS ---
Author Organization [facility] Care Team Providers Care Organic Chemist Name Role Phone Kallie Story Unavailable Unavailable JoshysMiracle Unavailable Unavailable Habib, Silverio Unavailable Unavailable Bone, Guido Unavailable Unavailable Ampadu, Stanley Unavailable Unavailable Felix, Ana Luisa Unavailable Unavailable Allergies and adverse reactions No Known Allergies Care Team Name Role Address Phone Organization Dates [facility] [address] [place], [address], [place] (Office): : [facility] 11/03/2021 - 11/21/2021 Kallie Story [address] [place], [address], [place] (Office): : [facility] 11/03/2021 - 11/21/[address], [place], [address], [place] (Office): : [facility] 11/03/2021 - 11/21/2021 Silverio Habib [address] [facility], [place], [address], [place] (Office): : : [facility] 11/03/2021 - 11/21/2021 Guido Bone [address], [place], [address], [place] (Office): : [facility] 11/03/2021 - 11/21/2021 Ana Luisa Washington [address], [place], [address], [place] (Office): : [facility] 11/03/2021 - 11/21/2021 Immunizations Immunization Status Vaccine Details Vaccine Code CodeSystem Date Notes Influenza completed Influenza, high-dose, split virus, quadrivalent, injectable, preservative free 197 CVX created date: 2 administe red date: 1 Prevnar 13 (Pneumonia) completed pneumococcal conjugate vaccine, 13 valent 133 CVX created date: 2 administe red date: 8 SARS-COV-2 (COVID-19) cancelled SARS-COV-2 (COVID-19) vaccine, D614, prefusion spike recombinant protein subunit (CoV2 preS dTM), AS03 adjuvant added, preservative free, 5mcg/0.5mL dose 225 CVX created date: 2 consent date: 2 Medical contraindication per Seismograph Helper Mental Status Section Date Assessment Total Score Description 11/21/2021 CAM 0 No delirium ind icated 11/10/2021 BIMS 12 moderate cognit abdi impairment CAM 0 No delirium ind icated PHQ-9 10 moderate depres stuart Insurance Providers Problems Problem # Description Date of onset Resolved Date Code CodeSystem Concern Status 1 ALTERED MENTAL STATUS, UNSPECIFIED 11/04/[address] active 2 ARTHROPATHIES IN OTHER SPECIFIED DISEASES CLASSIFIED ELSEWHERE, LEFT KNEE 11/04/[address] active 3 ATHEROSCLEROTIC HEART DISEASE OF [place] CORONARY ARTERY WITHOUT ANGINA PECTORIS 11/04/[id number] active 4 BILATERAL PRIMARY OSTEOARTHRITIS OF KNEE 11/04/[address] active 5 CARDIAC ARREST DUE TO OTHER UNDERLYING CONDITION 11/04/[address] active 6 CHRONIC OBSTRUCTIVE PULMONARY DISEASE, UNSPECIFIED 11/04/[address] active 7 COGNITIVE COMMUNICATION DEFICIT 11/04/[address] active 8 DIFFICULTY IN WALKING, NOT ELSEWHERE CLASSIFIED 11/04/[address] active 9 DYSPHAGIA, UNSPECIFIED 11/04/[address] active 10 ESSENTIAL (PRIMARY) HYPERTENSION 11/04/[address] active 11 GASTRO-ESOPHAGEAL REFLUX DISEASE WITHOUT ESOPHAGITIS 11/04/[address] active 12 HEART FAILURE, UNSPECIFIED 11/04/[address] active 13 HYPERLIPIDEMIA, UNSPECIFIED 11/04/[address] active 14 IRRITABLE BOWEL SYNDROME WITH DIARRHEA 11/04/[address] active 15 LOW BACK PAIN, UNSPECIFIED 11/04/[address] active 16 NEED FOR ASSISTANCE WITH PERSONAL CARE 11/04/[id number] active 17 OTHER NERVE ROOT AND PLEXUS DISORDERS 11/04/[address] active 18 PAIN IN UNSPECIFIED KNEE 11/04/[address] active 19 PRESENCE OF CORONARY ANGIOPLASTY IMPLANT AND GRAFT 11/04/[address] active 20 PRESENCE OF RIGHT ARTIFICIAL KNEE JOINT 11/04/[address] active 21 RESTLESS LEGS SYNDROME 11/04/[address] active 22 SLEEP TERRORS [NIGHT TERRORS] 11/04/[address] active 23 UNILATERAL PRIMARY OSTEOARTHRITIS, UNSPECIFIED KNEE 11/04/[address] active Reason for Referral No Reasons for Referral Entered Social History Social History Observation Description Start Date End Date Code Code System Current Smoking Status Tobacco smoking consumption unknown 342907593 SNOMED CT Sex Assigned At Male 1950 96477-6 [facility] Gender Identity Sexual Orientation Vital Signs Code Code System Vitals Name Values and Units Timing Information 80147-6 [facility] Pain Level Value=0.0 11/21/2021 9279-1 [facility] Respiratory Rate Value=18.0 Units=/m in 11/21/2021 8310-5 [facility] Body Temperature Value=97.9 Units= F 11/21/2021 8867-4 [facility] Heart rate Value=70.0 Units=/min 07/2021 50421-3 [facility] O2 % BldC Oximetry Value=97.0 Units= % 11/21/2021 8462-4 [facility] Blood Pressure-Diastolic Value=84 Un its=mmHg 11/18/2021 8480-6 [facility] Blood Pressure-Systolic Zmouf=137 Un its=mmHg 11/18/2021 80475-9 [facility] Weight Lywzg=042.0 Units=Lbs 03/2021 8302-2 [facility] Height Value=65.0 Units=Inches 11/08/2021
== END 2025-02-10 10:30 | disposition home or self-care (01) ==
LOC: CHSLAB 10:31
PROVIDERS: PCP Family Medicine; Visit Provider Nurse Practitioner Family
DX: I15.2 Hypertension secondary to endocrine disorders (principal); E11.59 Type 2 diabetes mellitus with other circulatory complications
CPT/HCPCS: 36415; 80053; 80061; 82043; 83036; 84443; 85025